=== PATIENT | male | born 1945 | race Caucasian/White ===

== ENCOUNTER → 2016-07-02 | Outpatient (CLI) | payer MEDICARE ==
[~2016-07-02] MED LIST: ADV500INH INH; ALBU17IN INH; ALBU83IN INH; DOCU100C PO; LISI10TA4 PO; MIRA3350 PO; MONT10TA2 PO; NEXI40GR PO; PRAV40TA2 PO; REGL10TA6 PO; SPIR1CAP INH; [UNRECOGNIZED DRUG - CODE] PO
[2016-07-02 10:27] LABS: ALBUMIN 3.6 GM/DL (3.2-5.2); ALBUMIN/GLOBULIN RATIO 1.29 (1.00-1.93); ALKALINE PHOSPHATASE 56 U/L (45-117); ALT/SGPT 19 U/L (12-78); ANION GAP 6 MEQ/L (8-16); AST/SGOT 14 U/L (15-37); BILIRUBIN,TOTAL 0.5 MG/DL (0.2-1.0); BLOOD UREA NITROGEN 10 MG/DL (7-18); CALCIUM LEVEL 8.3 MG/DL (8.8-10.2); CARBON DIOXIDE LEVEL 32 MEQ/L (21-32); CHLORIDE LEVEL 106 MEQ/L (98-107); CHOLESTEROL LEVEL 149 MG/DL (<200); CREATININE FOR GFR 0.92 MG/DL (0.70-1.30); GLOMERULAR FILTRATION RATE > 60.0 (>49); GLUCOSE, FASTING 97 MG/DL (80-110); POTASSIUM SERUM 4.9 MEQ/L (3.5-5.1); SODIUM LEVEL 144 MEQ/L (136-145); TOTAL PROTEIN 6.4 GM/DL (6.4-8.2); TRIGLYCERIDES LEVEL 70 MG/DL (<150)
[2016-07-03 14:13] LABS: PSA TOTAL 1.7 ng/mL (0.0-4.0)
== END ==
LOC: M WUC 08:28
PROVIDERS: ATTEND Nurse Practitioner Family
DX: Z12.5 Encounter for screening for malignant neoplasm of prostate (principal); R73.01 Impaired fasting glucose; E78.4 Other hyperlipidemia

== ENCOUNTER → 2016-07-26 | Outpatient (CLI) | payer MEDICARE ==
--- NOTE | 2016-07-26 15:03 | REP ---
Chest x-ray: Two views. History: COPD with acute exacerbation. Comparison chest x-ray March 16, 2016. Findings: Moderate cardiac enlargement is seen. There is a very large hiatal hernia and there is elevation and eventration of the left hemidiaphragm. There is some linear fibrosis or atelectasis above this in the left base. These findings are all unchanged. Pleural angles are sharp. No new infiltrate is seen. The aorta is a little tortuous. No significant bony abnormality is seen. Impression: Eventration left hemidiaphragm, large hiatal hernia containing bowel loops. Moderate cardiomegaly again noted. No acute infiltrate. Some linear fibrosis versus discoid atelectasis left base. Signed by Michael Galaviz MD 07/26/2016 05:38 P
== END ==
LOC: M SMT 09:41
PROVIDERS: ATTEND Internal Medicine Pulmonary Disease
DX: J44.1 Chronic obstructive pulmonary disease with (acute) exacerbation (principal)

== ENCOUNTER → 2016-10-09 | Outpatient (REF) | payer MEDICARE | LOC: M LAB REF 13:05 | PROVIDERS: ATTEND Internal Medicine Pulmonary Disease | DX: J44.1 Chronic obstructive pulmonary disease with (acute) exacerbation (principal) ==

== ENCOUNTER → 2016-12-14 | Outpatient (CLI) | payer MEDICARE ==
[~2016-12-14] MED LIST changes: +COMBAER6 INH; -DOCU100C PO; +DOCU100C16 PO; +FURO20TA2 PO; +FURO40TA2 PO; +OMEP40CA2 PO
[2016-12-14 17:58] LABS: ANION GAP 6 MEQ/L (8-16); BLOOD UREA NITROGEN 8 MG/DL (7-18); CALCIUM LEVEL 8.4 MG/DL (8.8-10.2); CARBON DIOXIDE LEVEL 34 MEQ/L (21-32); CHLORIDE LEVEL 102 MEQ/L (98-107); CREATININE FOR GFR 0.91 MG/DL (0.70-1.30); GLOMERULAR FILTRATION RATE > 60.0 (>49); GLUCOSE, FASTING 94 MG/DL (80-110); POTASSIUM SERUM 4.3 MEQ/L (3.5-5.1); SODIUM LEVEL 142 MEQ/L (136-145)
== END ==
LOC: M WUC 13:11
PROVIDERS: ATTEND Nurse Practitioner Family
DX: R60.0 Localized edema (principal)

== ENCOUNTER → 2017-01-07 | Outpatient (CLI) | payer MEDICARE ==
[2017-01-07 09:41] LABS: ANION GAP 9 MEQ/L (8-16); BLOOD UREA NITROGEN 12 MG/DL (7-18); CALCIUM LEVEL 8.3 MG/DL (8.8-10.2); CARBON DIOXIDE LEVEL 32 MEQ/L (21-32); CHLORIDE LEVEL 104 MEQ/L (98-107); GLOMERULAR FILTRATION RATE > 60.0 (>49); GLUCOSE, FASTING 107 MG/DL (80-110); MAGNESIUM LEVEL 2.2 MG/DL (1.8-2.4); POTASSIUM SERUM 4.3 MEQ/L (3.5-5.1); SODIUM LEVEL 145 MEQ/L (136-145)
== END ==
LOC: M WUC 08:12
PROVIDERS: ATTEND Nurse Practitioner Family
DX: I10 Essential (primary) hypertension (principal)

== ENCOUNTER 2017-02-06 14:38 | Observation (INO) | payer MEDICARE ==
[~2017-02-06] VITALS: Ht 170.2 cm; Wt 106.8 kg
[~2017-02-06 14:38] MED LIST changes: -COMBAER6 INH; -FURO20TA2 PO; -FURO40TA2 PO; -OMEP40CA2 PO
[2017-02-06] MEDS ORDERED: PERCOCET 5MG/325MG TAB PO PRN (15:15)
[2017-02-06] MEDS ORDERED: ACETAMINOPHEN TAB 650MG DOSE (2X325MG) PO PRN (15:15)
[2017-02-06] MEDS ORDERED: ONDANSETRON 4 MG TAB (S0181) PO PRN (15:15)
[2017-02-06] MEDS ORDERED: ONDANSETRON 4MG/2ML VIAL (J2405) IV PRN (15:15)
[2017-02-06 15:38] LABS: BASO # 0.1 10^3/uL (0.0-0.2); EOS # 0.2 10^3/uL (0.0-0.50); EOS % 3.3 % (0.0-3.0); IMMATURE GRANULOCYTE % 0.3 % (0-0); LYMPH # 1.5 10^3/uL (1.5-4.5); LYMPH % 20.3 % (24.0-44.0); MEAN CORPUSCULAR HEMOGLOBIN 32.4 pg (27.0-33.0); MEAN CORPUSCULAR HGB CONC 33.5 g/dl (32.0-36.5); MEAN CORPUSCULAR VOLUME 96.5 fl (80.0-96.0); MONO # 0.6 10^3/uL (0.0-0.8); MONO % 8.1 % (0.0-5.0); NEUTROPHILS # 4.9 10^3/uL (1.8-7.7); PLATELET COUNT, AUTOMATED 213 10^3/uL (150-450); RED CELL DISTRIBUTION WIDTH 12.3 % (11.5-14.5); WHITE BLOOD COUNT 7.3 10^3/uL (4.0-10.0)
[2017-02-06 15:41] LABS: ADD MORPHOLOGY? NO
[2017-02-06 15:45] VITALS: BP 120/59
[2017-02-06 16:12] LABS: ALBUMIN 3.7 GM/DL (3.2-5.2); ALBUMIN/GLOBULIN RATIO 1.28 (1.00-1.93); ALKALINE PHOSPHATASE 55 U/L (45-117); ALT/SGPT 19 U/L (12-78); ANION GAP 2 MEQ/L (8-16); AST/SGOT 16 U/L (15-37); BILIRUBIN,TOTAL 0.5 MG/DL (0.2-1.0); BLOOD UREA NITROGEN 12 MG/DL (7-18); CALCIUM LEVEL 8.7 MG/DL (8.8-10.2); CARBON DIOXIDE LEVEL 36 MEQ/L (21-32); CHLORIDE LEVEL 102 MEQ/L (98-107); CREATININE FOR GFR 1.05 MG/DL (0.70-1.30); GLOMERULAR FILTRATION RATE > 60.0 (>49); GLUCOSE, FASTING 105 MG/DL (80-110); MAGNESIUM LEVEL 1.9 MG/DL (1.8-2.4); POTASSIUM SERUM 4.5 MEQ/L (3.5-5.1); SODIUM LEVEL 140 MEQ/L (136-145); TOTAL PROTEIN 6.6 GM/DL (6.4-8.2)
--- NOTE | 2017-02-06 16:24 | HPEPDOC ---
[facility] Medical History & Physical Date of Admission Feb 06, 2017 History and Physical HISTORY AND PHYSICAL Date of admission: 02/06/2017 PCP: Mukul Patrick Chief complaint: Fluid buildup HPI: 71-year-old male with COPD, hyperlipidemia, hypertension, Toscano's esophagus, chronic diastolic CHF, AMOL on CPAP who was directly admitted from Dr. Espinal office. The patient states that he has been noticing he has had fluid buildup for the past month. He reports that he went to his PCP last week for this specific problem, but they did not make any changes to his medication. He reports that he weighs himself at home and he has seen approximately a 4 pound increase in the last 1-2 weeks. He also reports that in the last week he has had to start sleeping on a couple pillows. In addition to swelling in his legs he reports some shortness of breath that seems to get worse when he is walking or active. He denies any chest pain, but does report that he has started to experience tightness in his chest today it seems to get worse with activity. He states that he had been referred by Dr. Espinal to see Dr. Mario for the first time, but he was not able to get an appointment until February 26. Past medical history: COPD, hyperlipidemia, hypertension, Toscano's esophagus, chronic diastolic CHF, AMOL on CPAP Past surgical history: Hiatal hernia repair, as well as another surgery that he states was "done on his privates, and if not done he would've " but he is not further able to articulate what this was and reports that it was not related to any sort of prostate cancer Family history: Coronary artery disease, tremors Social history: The patient currently lives with his . He reports that he used to smoke approximately 1-1/2 packs per week but is now down to half a pack per week. He quit drinking all alcohol 30 years ago. Allergies: Aspirin, banana, fish Review of systems: General: Negative for fever and chills Eyes: Negative for vision changes and ocular discharge ENT: Negative For sore throat and nose bleed Cardiovascular: Negative for chest pain and palpitations, positive for orthopnea as well as some chest tightness that began today Respiratory: Positive for cough and shortness of breath GI: Negative for nausea, vomiting, diarrhea Musculoskeletal: Negative for neck and back pain Skin: Negative for rash Neuro: Positive for occasional headache but none currently, negative for dizziness, numbness, tingling Psych: Negative for depression and suicidal ideation Endocrine: Negative for polydipsia, positive for polyuria : Negative for dysuria Heme: Negative for bleeding Home meds: See below Physical exam: Vital signs: Vital Signs Date Time Temp Pulse Resp B/P (MAP) Pulse Ox O2 Delivery O2 Flow Rate FiO2 02/06/17 15:45 97.7 86 18 120/59 (79) 93 Gen.: awake, alert, no acute distress Eyes: Extraocular movements intact, normal sclera ENT: Moist mucous membranes Cardiovascular: RRR, no murmurs rubs or gallops Lungs: clear to auscultation at the bilateral apices, coarse with mild crackles at the bilateral bases, no wheeze Abdomen: Soft, NT/ND, normal BS Musculoskeletal: normal range of motion Extremities: 1+ peripheral edema Neuro: alert and oriented 3, normal speech, no focal deficits Psych: Normal mood with congruent affect Labs and radiology: CBC, CMP, magnesium are unremarkable BNP is elevated at 241 Assessment and plan: 71-year-old male with COPD, hyperlipidemia, hypertension, Toscano's esophagus, chronic diastolic CHF, AMOL on CPAP who was directly admitted from Dr. Espinal office with acute on chronic diastolic CHF exacerbation. 1. Acute on chronic diastolic CHF: We will hold the patient's home oral Lasix and start him on IV Lasix twice a day. We will follow daily weights as well as ins and outs. We will obtain an echocardiogram, as well as monitor him on telemetry and check an EKG and trend troponins. 2. Shortness of breath: I suspect this is secondary to his CHF exacerbation. I do not hear any distinct wheeze that would indicate this is a COPD exacerbation. However, we will check a chest x-ray to rule out other etiologies. 3. COPD: Continue home nebulizers, Singulair, Advair, Spiriva.. 4. Hypertension: Continue home AL inhibitor. 5. Toscano's esophagus: Continue home PPI. 6. AMOL on CPAP: The patient has brought his CPAP machine in, and we will urge him to use his home CPAP. According to Dr. Espinal, he uses 9 cm with 2 L bled in. 7. Hyperlipidemia: Continue home statin. DVT prophylaxis: Lovenox Dispo: place in observation status on the service of Dr. Crystal CODE STATUS: Full code Laboratory Data Labs 24H Laboratory Tests 2 02/06/17 15:29: White Blood Count 7.3, Red Blood Count 4.79, Hemoglobin 15.5, Hematocrit 46.2, Mean Corpuscular Volume 96.5H, Mean Corpuscular Hemoglobin 32.4, Mean Corpuscular Hemoglobin Concent 33.5, Red Cell Distribution Width 12.3, Platelet Count 213, Neutrophils (%) (Auto) 67.0H, Lymphocytes (%) (Auto) 20.3L, Monocytes (%) (Auto) 8.1H, Eosinophils (%) (Auto) 3.3H, Basophils (%) (Auto) 1.0 , Neutrophils # (Auto) 4.9, Lymphocytes # (Auto) 1.5, Monocytes # (Auto) 0.6, Eosinophils # (Auto) 0.2, Basophils # (Auto) 0.1, Immature Granulocyte # (Auto) 0.0, Nucleated Red Blood Cells % (auto) 0.0, Anion Gap 2L, Glomerular Filtration Rate > 60.0, Blood Urea Nitrogen 12, Creatinine 1.05, Sodium Level 140, Potassium Level 4.5, Chloride Level 102, Carbon Dioxide Level 36H, Calcium Level 8.7L, Aspartate Amino Transf (AST/SGOT) 16, Alanine Aminotransferase (ALT/ SGPT) 19, Total Creatine Kinase 172, Alkaline Phosphatase 55, Total Bilirubin 0.5, Total Protein 6.6, Albumin 3.7, Magnesium Level 1.9, Creatine Kinase MB 2.6 , Creatine Kinase MB Relative Index 1.51, Troponin I < 0.02, XX-[id number]-Type Natriuretic Peptide 241H, Albumin/Globulin Ratio 1.28 CBC/BMP Laboratory Tests 02/06/17 15:29 Red Blood Count 4.79, Mean Corpuscular Volume 96.5 H, Mean Corpuscular Hemoglobin 32.4, Mean Corpuscular Hemoglobin Concent 33.5, Red Cell Distribution Width 12.3, Neutrophils (%) (Auto) 67.0 H, Lymphocytes (%) (Auto) 20.3 L, Monocytes (%) (Auto) 8.1 H, Eosinophils (%) (Auto) 3.3 H, Basophils (%) (Auto) 1.0, Neutrophils # (Auto) 4.9, Lymphocytes # (Auto) 1.5, Monocytes # ( Auto) 0.6, Eosinophils # (Auto) 0.2, Basophils # (Auto) 0.1, Calcium Level 8.7 L , Aspartate Amino Transf (AST/SGOT) 16, Alanine Aminotransferase (ALT/SGPT) 19, Total Creatine Kinase 172, Alkaline Phosphatase 55, Total Bilirubin 0.5, Total Protein 6.6, Albumin 3.7 Home Medications Scheduled Docusate Sodium (Docusate Sodium) 100 Mg Cap, 100 MG PO DAILY Furosemide (Furosemide) 20 Mg Tab, 20 MG PO DAILY Lisinopril (Lisinopril) 10 Mg Tab, 10 MG PO DAILY Montelukast Sodium (Montelukast Sodium) 10 Mg Tab, 10 MG PO QPM Omeprazole (Omeprazole) 40 Mg Cap, 40 MG PO BID Polyethylene Glycol (Miralax) 1 Pow Pow, 17 GM PO BID Pravastatin Sod (Pravastatin Sodium) 40 Mg Tab, 40 MG PO DAILY Salmeterol/Fluticasone (Advair Diskus 500-50 Mcg/Dose) 28 Puff/Inhaler Aerp, 1 PUFF INH BID Tiotropium [place] Monohydrate (Spiriva Handihaler) 18 Mcg Cap, 1 INHALATION INH QPM Scheduled PRN Albuterol Sulfate (Ventolin Hfa) 200 Puff/8 Gm Aers, 2 PUFF INH QID PRN for SOB/ WHEEZING Albuterol Sulfate (Albuterol Sulfate) 2.5 Mg/3 Ml Nebu, 2.5 MG INH PRN PRN for WHEEZING Albuterol/Ipratropium (Combivent Respimat 20-100 Mcg/Act) 1 Aer Aer, 1 PUFF INH QID PRN for SHORTNESS OF BREATH Allergies Coded Allergies: Aspirin (Unverified Allergy, Unknown, rash, 02/06/17) Banana (Unverified Allergy, Unknown, 02/06/17) FISH (Unverified Allergy, Unknown, 02/06/17) JAEL HERNÁNDEZ Feb 06, 2017 16:24
[2017-02-06] MEDS ORDERED: OMEP40CA2 PO (16:47)
[2017-02-06] MEDS ORDERED: FURO20TA2 PO (16:47)
[2017-02-06] MEDS ORDERED: COMBAER6 INH (16:47)
[2017-02-06] MEDS: FUROSEMIDE 40 MG/4 ML VIAL (J1940) IV SCH (16:55)
[2017-02-06] MEDS ORDERED: MIRALAX *UNIT DOSE* 17GM PACKET PO PRN (17:15)
[2017-02-06] MEDS: ALBUTEROL SULFATE 2.5 MG/0.5 ML INH NEB SOLN INH PRN (17:38)
[2017-02-06 20:00] VITALS: BP 107/56
[2017-02-06] MEDS: IPRATROPIUM 0.5MG/ALBUTEROL 2.5MG INH SOL UD 3ML (DUONEB)(J7620) INH SCH (20:00)
[2017-02-06] MEDS: ADVAIR HFA 230/21MCG INHALER INH SCH (21:04)
[2017-02-06] MEDS: OMEPRAZOLE 20 MG CAP PO SCH (21:32)
[2017-02-06] MEDS: MONTELUKAST 10 MG TAB PO SCH (21:32)
--- NOTE | 2017-02-06 22:14 | ECGEPIP ---
Stationary ECG Study 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
[2017-02-06] MEDS: TIOTROPIUM INHALER/CAPSULE (SPIRIVA) INH SCH (23:55)
[2017-02-07] VITALS: BP 125/55
[2017-02-07 04:00] VITALS: BP 127/70
[2017-02-07] MEDS: ALBUTEROL SULFATE 2.5 MG/0.5 ML INH NEB SOLN INH PRN (04:19)
[2017-02-07 06:13] LABS: BASO # 0.1 10^3/uL (0.0-0.2); EOS # 0.3 10^3/uL (0.0-0.50); EOS % 3.9 % (0.0-3.0); IMMATURE GRANULOCYTE % 0.4 % (0-0); LYMPH # 1.2 10^3/uL (1.5-4.5); LYMPH % 17.6 % (24.0-44.0); MEAN CORPUSCULAR HEMOGLOBIN 32.6 pg (27.0-33.0); MEAN CORPUSCULAR HGB CONC 33.3 g/dl (32.0-36.5); MONO # 0.6 10^3/uL (0.0-0.8); MONO % 9.3 % (0.0-5.0); NEUTROPHILS # 4.6 10^3/uL (1.8-7.7); NEUTROPHILS % 67.8 % (36.0-66.0); PLATELET COUNT, AUTOMATED 204 10^3/uL (150-450); RED CELL DISTRIBUTION WIDTH 12.2 % (11.5-14.5); WHITE BLOOD COUNT 6.8 10^3/uL (4.0-10.0)
[2017-02-07 06:41] LABS: ANION GAP 4 MEQ/L (8-16); BLOOD UREA NITROGEN 13 MG/DL (7-18); CALCIUM LEVEL 8.5 MG/DL (8.8-10.2); CARBON DIOXIDE LEVEL 36 MEQ/L (21-32); CHLORIDE LEVEL 101 MEQ/L (98-107); CREATININE FOR GFR 1.09 MG/DL (0.70-1.30); GLOMERULAR FILTRATION RATE > 60.0 (>49); GLUCOSE, FASTING 107 MG/DL (80-110); MAGNESIUM LEVEL 2.1 MG/DL (1.8-2.4); POTASSIUM SERUM 3.9 MEQ/L (3.5-5.1); SODIUM LEVEL 141 MEQ/L (136-145)
[2017-02-07] MEDS: ADVAIR HFA 230/21MCG INHALER INH SCH ×2 (07:57→21:16)
[2017-02-07] MEDS: TIOTROPIUM INHALER/CAPSULE (SPIRIVA) INH SCH (07:58)
[2017-02-07] MEDS: IPRATROPIUM 0.5MG/ALBUTEROL 2.5MG INH SOL UD 3ML (DUONEB)(J7620) INH SCH ×4 (07:58→21:31)
[2017-02-07 08:00] VITALS: BP 112/55
--- NOTE | 2017-02-07 08:09 | REP ---
PA and lateral chest: Comparisons 07/26/2016. There is marked elevation of the left hemidiaphragm, two above the level of the left hilus, unchanged, likely eventration. The left upper lobe is clear. Right lung is clear. Cardiac size cannot be assessed as the left cardiac margin is obscured by the elevated left hemidiaphragm. Impression: Eventration of the left hemidiaphragm, unchanged. No acute cardiopulmonary findings. Signed by Jase Mcwilliams MD 02/07/2017 08:01 A
[2017-02-07] MEDS: FUROSEMIDE 40 MG/4 ML VIAL (J1940) IV SCH ×2 (09:26→17:33)
[2017-02-07] MEDS: ENOXAPARIN 40 MG/0.4 ML SYRINGE (J1650) SC SCH (09:27)
[2017-02-07] MEDS: LISINOPRIL 10 MG TAB PO SCH (09:27)
[2017-02-07] MEDS: OMEPRAZOLE 20 MG CAP PO SCH ×2 (09:28→21:07)
[2017-02-07] MEDS: DOCUSATE SODIUM 100 MG CAP PO SCH (09:28)
[2017-02-07] MEDS: PRAVASTATIN 20 MG TAB PO SCH (09:28)
--- NOTE | 2017-02-07 11:37 | IPN ---
DATE: 02/07/2017 Mr. Turcios is feeling much better today, much less short of breath. He thinks that his legs have gotten smaller. No chest pain. Tolerating a diet. Temperature is 97.6, pulse 88, respiratory rate 20, blood pressure 112/55, 96% on 2 liters. There is some ectopy. Negative fluid status of -540. Weight is 107.1 kg, Body Mass Index (BMI) is 37. He is awake, appropriately interactive. Mucous membranes are moist. Neck is supple and thick. Breathing is symmetrical. I:E ratio is 1:3. No wheezes, rales or rhonchi. No costovertebral angle tenderness. No sacral edema. Heart has a regular rate and rhythm. Distant sounding. Normal S1, S2. Radial pulses 2+. Capillary refill is less than 2 seconds. He has trace to 1+ bilateral lower extremity edema. Some skin wrinkling noted. Sodium is 141, BUN 13, creatinine 1.09, CK and troponin negative times three. Hemoglobin 16.1, platelets of 204. ASSESSMENT: Is as follows: This is a 71-year-old with suspected congestive heart failure (CHF) exacerbation, most likely related to diastolic dysfunction or perhaps right sided heart failure. PLAN: Is as follows: 1. The patient has acute on chronic diastolic congestive heart failure (CHF). Echocardiogram is pending. We will continue with IV diuretic today. 2. The patient has a history of chronic obstructive pulmonary disease (COPD). Continue home medications. 3. The patient has hypertension. The patient is continued on AL inhibitor in the setting of diuresis, which will be continued. 4. The patient has obstructive sleep apnea on CPAP. 5. The patient has hyperlipidemia. Pending results of the echocardiogram and further diuresis, maybe able to be discharge as early as tomorrow.
[2017-02-07 12:00] VITALS: BP 116/65
[2017-02-07 16:00] VITALS: BP 114/66
[2017-02-07 20:00] VITALS: BP 125/62
[2017-02-07] MEDS: MONTELUKAST 10 MG TAB PO SCH (21:07)
[2017-02-08] VITALS: BP 107/71
[2017-02-08 04:00] VITALS: BP 138/77
[2017-02-08] MEDS: ALBUTEROL SULFATE 2.5 MG/0.5 ML INH NEB SOLN INH PRN (04:39)
[2017-02-08 05:52] LABS: BASO # 0.1 10^3/uL (0.0-0.2); EOS # 0.2 10^3/uL (0.0-0.50); EOS % 3.5 % (0.0-3.0); IMMATURE GRANULOCYTE % 0.4 % (0-0); LYMPH # 1.3 10^3/uL (1.5-4.5); LYMPH % 18.4 % (24.0-44.0); MEAN CORPUSCULAR HEMOGLOBIN 32.4 pg (27.0-33.0); MEAN CORPUSCULAR HGB CONC 33.5 g/dl (32.0-36.5); MEAN CORPUSCULAR VOLUME 96.6 fl (80.0-96.0); MONO # 0.6 10^3/uL (0.0-0.8); MONO % 9.1 % (0.0-5.0); NEUTROPHILS # 4.6 10^3/uL (1.8-7.7); NEUTROPHILS % 67.6 % (36.0-66.0); PLATELET COUNT, AUTOMATED 200 10^3/uL (150-450); RED CELL DISTRIBUTION WIDTH 12.2 % (11.5-14.5); WHITE BLOOD COUNT 6.8 10^3/uL (4.0-10.0)
[2017-02-08 06:26] LABS: ANION GAP 6 MEQ/L (8-16); BLOOD UREA NITROGEN 19 MG/DL (7-18); CALCIUM LEVEL 8.7 MG/DL (8.8-10.2); CARBON DIOXIDE LEVEL 33 MEQ/L (21-32); CHLORIDE LEVEL 98 MEQ/L (98-107); CREATININE FOR GFR 1.07 MG/DL (0.70-1.30); GLOMERULAR FILTRATION RATE > 60.0 (>49); GLUCOSE, FASTING 99 MG/DL (80-110); SODIUM LEVEL 137 MEQ/L (136-145)
[2017-02-08] MEDS: IPRATROPIUM 0.5MG/ALBUTEROL 2.5MG INH SOL UD 3ML (DUONEB)(J7620) INH SCH ×2 (08:00→11:15)
[2017-02-08] MEDS: TIOTROPIUM INHALER/CAPSULE (SPIRIVA) INH SCH (08:00)
[2017-02-08] MEDS: ADVAIR HFA 230/21MCG INHALER INH SCH (08:00)
[2017-02-08 08:16] VITALS: BP 123/61
[2017-02-08] MEDS ORDERED: FURO40TA2 PO ×2 (08:26→12:27)
[2017-02-08] MEDS: ENOXAPARIN 40 MG/0.4 ML SYRINGE (J1650) SC SCH (08:43)
[2017-02-08] MEDS: DOCUSATE SODIUM 100 MG CAP PO SCH (08:43)
[2017-02-08 08:44] VITALS: BP 123/61
[2017-02-08] MEDS: PRAVASTATIN 20 MG TAB PO SCH (08:44)
[2017-02-08] MEDS: FUROSEMIDE 40 MG/4 ML VIAL (J1940) IV SCH (08:44)
[2017-02-08] MEDS: LISINOPRIL 10 MG TAB PO SCH (08:44)
[2017-02-08] MEDS: OMEPRAZOLE 20 MG CAP PO SCH (08:44)
[2017-02-09] MEDS ORDERED: INFLUENZA VIRUS VACCINE HIGH DOSE 0.5 ML SYRINGE (90662) IM ONE (09:00)
[2017-02-09] MEDS ORDERED: PREVNAR 13 VACCINE SYRINGE (CPT CODE:90670) IM ONE (09:00)
--- NOTE | 2017-02-10 15:48 | DSES ---
DATE OF ADMISSION: 02/06/2017 DATE OF DISCHARGE: 02/08/2017 SPECIALISTS INVOLVED IN CARE: None. COMPLICATIONS: None. PROCEDURES PERFORMED DURING STAY: NONE. DISCHARGE DIAGNOSES: 1. Acute on chronic diastolic congestive heart failure. 2. Chronic obstructive pulmonary disease (COPD). 3. Hypertension. 4. Obstructive sleep apnea on continuous positive airway pressure (CPAP). 5. Hyperlipidemia. 6. Toscano's esophagus. SUMMARY OF PRESENTATION: A 71-year-old who was sent to the hospital directly from Dr. Espinal' office. He had been noticing increasing weight and edema over the last month. He has developed orthopnea and edema, was admitted to the hospitalist service for diuresis. Was diuresed approximately six pounds, improved markedly, was able to ambulate without difficulty. No complains of pain, chest pain, shortness of breath, and was felt ready to go home. Unfortunately, we were unable to obtain an echocardiogram during his stay due to unavailability of resources. OBJECTIVE: VITAL SIGNS: On the day of discharge, temperature 97.5, pulse 79, respiratory rate 20, blood pressure 123/61, 97% on room air. GENERAL: He is awake, appropriately interact, pleasantly conversant. LUNGS: Breathing is symmetrical. I:E ratio is 1:4. No wheezes, rales, or rhonchi. HEART: Distant sounding normal S1, S2. ABDOMEN: Soft, doughy, nontender. LABORATORY DATA: White cell count 6.8, hemoglobin 16, BUN 19, creatinine 1.07. DISCHARGE INSTRUCTIONS: 1. Followup with Mukul Patrick on 02/13 at 10:30. 2. Activity as tolerated. 3. Two-gram sodium 1800 mL per 24-hour fluid restriction. 4. Continue with: - Lasix 40 mg by mouth daily - albuterol two puffs four times a day and as needed - Combivent one puff four times a day - Colace 100 mg by mouth daily - lisinopril 10 mg by mouth daily - Singulair 10 mg by mouth every evening - omeprazole 40 mg by mouth twice daily - MiraLAX 17 grams by mouth twice daily - pravastatin 40 mg by mouth daily - Advair 500/50 inhaled twice daily - Spiriva inhaled every evening daily 5. Discontinue previous dose of Lasix 20.
== END 2017-02-08 11:24 | disposition home or self-care (01) ==
LOC: M PCU 15:19
PROVIDERS: ADMIT Hospitalist; ATTEND Internal Medicine
DX: I50.33 Acute on chronic diastolic (congestive) heart failure (principal); J44.9 Chronic obstructive pulmonary disease, unspecified; I11.0 Hypertensive heart disease with heart failure; G47.33 Obstructive sleep apnea (adult) (pediatric); E78.4 Other hyperlipidemia; K22.70 Barrett's esophagus without dysplasia; R06.02 Shortness of breath; Z79.899 Other long term (current) drug therapy
CPT/HCPCS: 36415; 71020; 80048; 80053; 82550; 82553; 83735; 83880; 84484; 85025; 93005; 94640; 96372; 96374; 96376; G0378; J1650; J1940

== ENCOUNTER → 2017-02-21 | Outpatient (CLI) | payer MEDICARE ==
[~2017-02-21] MED LIST changes: +COMBAER6 INH; +FURO20TA2 PO; +FURO40TA2 PO; +OMEP40CA2 PO
[2017-02-21 14:23] LABS: ANION GAP 4 MEQ/L (8-16); BLOOD UREA NITROGEN 12 MG/DL (7-18); CALCIUM LEVEL 8.7 MG/DL (8.8-10.2); CARBON DIOXIDE LEVEL 34 MEQ/L (21-32); CHLORIDE LEVEL 102 MEQ/L (98-107); CREATININE FOR GFR 0.93 MG/DL (0.70-1.30); GLOMERULAR FILTRATION RATE > 60.0 (>49); GLUCOSE, FASTING 103 MG/DL (80-110); POTASSIUM SERUM 4.3 MEQ/L (3.5-5.1); SODIUM LEVEL 140 MEQ/L (136-145)
== END ==
LOC: M WUC 08:54
PROVIDERS: ATTEND Nurse Practitioner Family
DX: I10 Essential (primary) hypertension (principal)

== ENCOUNTER → 2017-03-29 | Outpatient (CLI) | payer MEDICARE ==
[2017-03-29 13:32] LABS: BASO # 0.1 10^3/uL (0.0-0.2); BASO % 1.2 % (0.0-1.0); EOS # 0.2 10^3/uL (0.0-0.50); EOS % 4.6 % (0.0-3.0); IMMATURE GRANULOCYTE % 0.4 % (0-0); LYMPH # 1.3 10^3/uL (1.5-4.5); LYMPH % 26.2 % (24.0-44.0); MEAN CORPUSCULAR HEMOGLOBIN 32.4 pg (27.0-33.0); MEAN CORPUSCULAR HGB CONC 32.9 g/dl (32.0-36.5); MEAN CORPUSCULAR VOLUME 98.4 fl (80.0-96.0); MONO # 0.5 10^3/uL (0.0-0.8); MONO % 10.1 % (0.0-5.0); NEUTROPHILS # 2.9 10^3/uL (1.8-7.7); NEUTROPHILS % 57.5 % (36.0-66.0); PLATELET COUNT, AUTOMATED 200 10^3/uL (150-450); RED CELL DISTRIBUTION WIDTH 12.4 % (11.5-14.5)
[2017-03-29 13:59] LABS: ALBUMIN 3.6 GM/DL (3.2-5.2); ALBUMIN/GLOBULIN RATIO 1.38 (1.00-1.93); ALKALINE PHOSPHATASE 59 U/L (45-117); ALT/SGPT 15 U/L (12-78); ANION GAP 6 MEQ/L (8-16); AST/SGOT 10 U/L (7-37); BILIRUBIN,TOTAL 0.5 MG/DL (0.2-1.0); BLOOD UREA NITROGEN 9 MG/DL (7-18); CALCIUM LEVEL 8.7 MG/DL (8.8-10.2); CARBON DIOXIDE LEVEL 32 MEQ/L (21-32); CHLORIDE LEVEL 105 MEQ/L (98-107); CHOLESTEROL LEVEL 153 MG/DL (<200); CREATININE FOR GFR 0.98 MG/DL (0.70-1.30); GLOMERULAR FILTRATION RATE > 60.0 (>42); GLUCOSE, FASTING 95 MG/DL (83-110); POTASSIUM SERUM 4.5 MEQ/L (3.5-5.1); SODIUM LEVEL 143 MEQ/L (136-145); TOTAL PROTEIN 6.2 GM/DL (6.4-8.2); TRIGLYCERIDES LEVEL 87 MG/DL (<150)
== END ==
LOC: M WUC 09:24
PROVIDERS: ATTEND Nurse Practitioner Family
DX: K21.9 Gastro-esophageal reflux disease without esophagitis (principal); R73.01 Impaired fasting glucose; E78.4 Other hyperlipidemia; I10 Essential (primary) hypertension

== ENCOUNTER → 2017-09-03 | Outpatient (CLI) | payer MEDICARE ==
[2017-09-03 17:21] LABS: BASO # 0.1 10^3/uL (0.0-0.2); BASO % 0.7 % (0.0-1.0); EOS # 0.1 10^3/uL (0.0-0.50); EOS % 1.6 % (0.0-3.0); HEMATOCRIT 46.1 % (42.0-52.0); HEMOGLOBIN 15.2 g/dl (13.5-17.5); IMMATURE GRANULOCYTE % 0.3 % (0-3.0); LYMPH # 1.2 10^3/uL (1.5-4.5); LYMPH % 17.6 % (24.0-44.0); MEAN CORPUSCULAR HEMOGLOBIN 32.5 pg (27.0-33.0); MEAN CORPUSCULAR VOLUME 98.5 fl (80.0-96.0); MONO # 0.6 10^3/uL (0.0-0.8); MONO % 8.5 % (0.0-5.0); NEUTROPHILS # 4.8 10^3/uL (1.8-7.7); NEUTROPHILS % 71.3 % (36.0-66.0); PLATELET COUNT, AUTOMATED 208 10^3/uL (150-450); RED BLOOD COUNT 4.68 10^6/uL (4.30-6.10); RED CELL DISTRIBUTION WIDTH 12.9 % (11.5-14.5); WHITE BLOOD COUNT 6.7 10^3/uL (4.0-10.0)
[2017-09-03 18:16] LABS: ANION GAP 6 MEQ/L (8-16); BLOOD UREA NITROGEN 9 MG/DL (7-18); CALCIUM LEVEL 8.3 MG/DL (8.8-10.2); CARBON DIOXIDE LEVEL 30 MEQ/L (21-32); CHLORIDE LEVEL 105 MEQ/L (98-107); CREATININE FOR GFR 0.92 MG/DL (0.70-1.30); GLOMERULAR FILTRATION RATE > 60.0 (>42); GLUCOSE, FASTING 87 MG/DL (70-100); POTASSIUM SERUM 4.1 MEQ/L (3.5-5.1); SODIUM LEVEL 141 MEQ/L (136-145)
== END ==
LOC: M WUC 12:13
DX: R19.7 Diarrhea, unspecified (principal)
CPT/HCPCS: 80048

== ENCOUNTER 2017-09-16 10:23 | Emergency (ER) | payer MEDICARE ==
[2017-09-16 13:09] LABS: BASO % 0.3 % (0.0-1.0); EOS # 0.1 10^3/uL (0.0-0.50); EOS % 0.9 % (0.0-3.0); HEMATOCRIT 45.2 % (42.0-52.0); HEMOGLOBIN 15.3 g/dl (13.5-17.5); IMMATURE GRANULOCYTE % 0.4 % (0-3.0); LYMPH # 0.9 10^3/uL (1.5-4.5); LYMPH % 8.6 % (24.0-44.0); MEAN CORPUSCULAR HGB CONC 33.8 g/dl (32.0-36.5); MEAN CORPUSCULAR VOLUME 97.6 fl (80.0-96.0); MONO # 0.8 10^3/uL (0.0-0.8); NEUTROPHILS # 8.3 10^3/uL (1.8-7.7); NEUTROPHILS % 81.8 % (36.0-66.0); PLATELET COUNT, AUTOMATED 241 10^3/uL (150-450); RED BLOOD COUNT 4.63 10^6/uL (4.30-6.10); RED CELL DISTRIBUTION WIDTH 12.8 % (11.5-14.5); WHITE BLOOD COUNT 10.2 10^3/uL (4.0-10.0)
[2017-09-16 13:19] LABS: INR 1.06; PROTHROMBIN TIME 13.9 SECONDS (12.4-14.5)
[2017-09-16 13:20] LABS: PARTIAL THROMBOPLASTIN TIME 35.1 SECONDS (26.8-37.9)
[2017-09-16 13:27] LABS: KETONE, URINE AUTO RFX NEGATIVE (NEGATIVE); LEUKOCYTE ESTERASE UR AUTO RFX NEGATIVE (NEGATIVE); MUCUS, URINE RFX SMALL (NEGATIVE); NITRITE, URINE AUTO RFX NEGATIVE (NEGATIVE); RBC, URINE AUTO RFX 2 /HPF (0-3); SPECIFIC GRAVITY UR AUTO RFX 1.015 (1.002-1.035); SQUAM EPITHELIAL CELL UR AURFX 0 /HPF (0-6); WBC, URINE AUTO RFX 3 /HPF (0-3)
[2017-09-16] MEDS ORDERED: ISOVUE-370 76% 100ML VIAL (Q9967) As Ordered (13:34)
[2017-09-16 13:39] LABS: ALBUMIN 3.4 GM/DL (3.2-5.2); ALBUMIN/GLOBULIN RATIO 0.89 (1.00-1.93); ALKALINE PHOSPHATASE 50 U/L (45-117); ALT/SGPT 12 U/L (12-78); AMYLASE 28 U/L (25-115); ANION GAP 5 MEQ/L (8-16); AST/SGOT 11 U/L (7-37); BILIRUBIN,DIRECT 0.1 MG/DL (0.0-0.2); BILIRUBIN,TOTAL 0.4 MG/DL (0.2-1.0); BLOOD UREA NITROGEN 9 MG/DL (7-18); CALCIUM LEVEL 8.6 MG/DL (8.8-10.2); CARBON DIOXIDE LEVEL 31 MEQ/L (21-32); CHLORIDE LEVEL 107 MEQ/L (98-107); GLOMERULAR FILTRATION RATE > 60.0 (>42); GLUCOSE, FASTING 96 MG/DL (70-100); LIPASE 66 U/L (73-393); POTASSIUM SERUM 4.1 MEQ/L (3.5-5.1); SODIUM LEVEL 143 MEQ/L (136-145); TOTAL PROTEIN 7.2 GM/DL (6.4-8.2)
[2017-09-16 13:42] LABS: CK-MB VALUE MASS 1.9 NG/ML (<3.6); CPK CREATINE PHOSPHOKINASE 108 U/L (39-308); MB/CK RELATIVE INDEX 1.75 (< OR =4); TROPONIN I < 0.02 NG/ML (< 0.10)
[2017-09-16 15:41] LABS: MAGNESIUM LEVEL 2.2 MG/DL (1.8-2.4); THYROXINE (T4) 8.9 UG/DL (4.5-12.0)
== END 2017-09-16 15:48 | disposition home or self-care (01) ==
LOC: M ED 10:23
DX: A04.72 Enterocolitis due to Clostridium difficile, not specified as recurrent (principal); K57.90 Diverticulosis of intestine, part unspecified, without perforation or abscess without bleeding; K43.9 Ventral hernia without obstruction or gangrene; I10 Essential (primary) hypertension; I48.91 Unspecified atrial fibrillation; I50.9 Heart failure, unspecified; E78.5 Hyperlipidemia, unspecified; K21.9 Gastro-esophageal reflux disease without esophagitis; J44.9 Chronic obstructive pulmonary disease, unspecified; G47.30 Sleep apnea, unspecified; K22.70 Barrett's esophagus without dysplasia; H91.90 Unspecified hearing loss, unspecified ear; F17.200 Nicotine dependence, unspecified, uncomplicated; Z79.899 Other long term (current) drug therapy; Z88.6 Allergy status to analgesic agent; Z91.013 Allergy to seafood; Z91.018 Allergy to other foods
CPT/HCPCS: Q9967

== ENCOUNTER → 2018-01-28 | Outpatient (CLI) | payer OTHER, MEDICARE | LOC: M PLARAD 13:39 | DX: R91.8 Other nonspecific abnormal finding of lung field (principal) | CPT/HCPCS: 78815 ==

== ENCOUNTER → 2018-02-22 | Outpatient (CLI) | payer OTHER ==
[2018-02-22 20:11] LABS: BASO # 0.1 10^3/uL (0.0-0.2); EOS # 0.2 10^3/uL (0.0-0.50); EOS % 2.8 % (0.0-3.0); HEMATOCRIT 46.3 % (42.0-52.0); HEMOGLOBIN 15.1 g/dl (13.5-17.5); IMMATURE GRANULOCYTE % 0.3 % (0-3.0); LYMPH # 1.1 10^3/uL (1.5-4.5); LYMPH % 18.5 % (24.0-44.0); MEAN CORPUSCULAR HEMOGLOBIN 32.9 pg (27.0-33.0); MEAN CORPUSCULAR HGB CONC 32.6 g/dl (32.0-36.5); MEAN CORPUSCULAR VOLUME 100.9 fl (80.0-96.0); MONO # 0.6 10^3/uL (0.0-0.8); MONO % 9.4 % (0.0-5.0); NEUTROPHILS # 4.1 10^3/uL (1.8-7.7); PLATELET COUNT, AUTOMATED 179 10^3/uL (150-450); RED BLOOD COUNT 4.59 10^6/uL (4.30-6.10); RED CELL DISTRIBUTION WIDTH 12.6 % (11.5-14.5); WHITE BLOOD COUNT 6.1 10^3/uL (4.0-10.0)
[2018-02-22 20:34] LABS: ESTIMATED AVERAGE GLUCOSE 123 MG/DL (60-110); HEMOGLOBIN A1c 5.9 %
[2018-02-22 20:35] LABS: ALBUMIN 3.8 GM/DL (3.2-5.2); ALBUMIN/GLOBULIN RATIO 1.36 (1.00-1.93); ALKALINE PHOSPHATASE 63 U/L (45-117); ALT/SGPT 16 U/L (12-78); ANION GAP 5 MEQ/L (8-16); AST/SGOT 11 U/L (7-37); BILIRUBIN,TOTAL 0.4 MG/DL (0.2-1.0); BLOOD UREA NITROGEN 15 MG/DL (7-18); CALCIUM LEVEL 8.7 MG/DL (8.8-10.2); CARBON DIOXIDE LEVEL 33 MEQ/L (21-32); CHLORIDE LEVEL 106 MEQ/L (98-107); CHOLESTEROL LEVEL 137 MG/DL (<200); CHOLESTEROL RISK RATIO 3.805 (<5); CREATININE FOR GFR 0.98 MG/DL (0.70-1.30); GLOMERULAR FILTRATION RATE > 60.0 (>42); GLUCOSE, FASTING 112 MG/DL (70-100); HDL CHOLESTEROL 36 MG/DL (>40); LDL CHOLESTEROL 84 MG/DL (<100); NON-HDL-C 101 MG/DL; POTASSIUM SERUM 4.7 MEQ/L (3.5-5.1); SODIUM LEVEL 144 MEQ/L (136-145); TOTAL PROTEIN 6.6 GM/DL (6.4-8.2); TRIGLYCERIDES LEVEL 85 MG/DL (<150)
[2018-02-27 00:08] LABS: PSA TOTAL 2.1 ng/mL (0.0-4.0)
== END ==
LOC: M WUC 07:59
DX: I10 Essential (primary) hypertension (principal); Z12.5 Encounter for screening for malignant neoplasm of prostate; R73.01 Impaired fasting glucose
CPT/HCPCS: 80053

== ENCOUNTER → 2018-04-24 | Outpatient (CLI) | payer OTHER | LOC: M RAD 12:38 | DX: R14.0 Abdominal distension (gaseous) (principal); J98.6 Disorders of diaphragm; J44.9 Chronic obstructive pulmonary disease, unspecified | CPT/HCPCS: 71250 ==

== ENCOUNTER → 2018-07-24 | Outpatient (CLI) | payer MEDICARE ==
[~2018-07-24] MED LIST changes: +VANC125C2 PO; +XARE20TA PO
--- NOTE | 2018-07-24 10:39 | REP ---
LEFT KNEE, FIVE VIEWS: HISTORY: Pain. There is no acute fracture or dislocation. There is moderate narrowing of the medial and mild narrowing of the lateral knee joint space. The patellofemoral joint space is normal in appearance. Calcification is present medial to the tibia. This represents ligamentous or tendon calcification. IMPRESSION: Degenerative change as described above. Electronically Signed by Siddharth Kaur MD 07/24/2018 10:44 A
[2018-07-24 13:32] LABS: BASO # 0.1 10^3/uL (0.0-0.2); BASO % 0.9 % (0.0-1.0); EOS # 0.2 10^3/uL (0.0-0.50); EOS % 3.3 % (0.0-3.0); HEMATOCRIT 44.5 % (42.0-52.0); HEMOGLOBIN 14.7 g/dl (13.5-17.5); LYMPH # 1.1 10^3/uL (1.5-4.5); LYMPH % 19.3 % (24.0-44.0); MEAN CORPUSCULAR HEMOGLOBIN 32.7 pg (27.0-33.0); MEAN CORPUSCULAR VOLUME 98.9 fl (80.0-96.0); MONO # 0.6 10^3/uL (0.0-0.8); MONO % 9.6 % (0.0-5.0); NEUTROPHILS # 3.9 10^3/uL (1.8-7.7); NEUTROPHILS % 66.6 % (36.0-66.0); PLATELET COUNT, AUTOMATED 180 10^3/uL (150-450); WHITE BLOOD COUNT 5.8 10^3/uL (4.0-10.0)
[2018-07-24 13:47] LABS: ALBUMIN 3.6 GM/DL (3.2-5.2); ALT/SGPT 16 U/L (12-78); BILIRUBIN,TOTAL 0.5 MG/DL (0.2-1.0); BLOOD UREA NITROGEN 11 MG/DL (7-18); CALCIUM LEVEL 8.7 MG/DL (8.8-10.2); CARBON DIOXIDE LEVEL 32 MEQ/L (21-32); CHLORIDE LEVEL 106 MEQ/L (98-107); CHOLESTEROL LEVEL 146 MG/DL (<200); CHOLESTEROL RISK RATIO 4.294 (<5); CREATININE FOR GFR 0.88 MG/DL (0.70-1.30); GLOMERULAR FILTRATION RATE > 60.0 (>42); GLUCOSE, FASTING 98 MG/DL (70-100); HDL CHOLESTEROL 34 MG/DL (>40); LDL CHOLESTEROL 98 MG/DL (<100); NON-HDL-C 112 MG/DL; POTASSIUM SERUM 4.7 MEQ/L (3.5-5.1); SODIUM LEVEL 141 MEQ/L (136-145); TOTAL PROTEIN 6.3 GM/DL (6.4-8.2); TRIGLYCERIDES LEVEL 72 MG/DL (<150)
[2018-07-24 14:22] LABS: HEMOGLOBIN A1c 5.8 %
== END ==
LOC: M WUC 08:49
PROVIDERS: ATTEND Nurse Practitioner Family
DX: M17.12 Unilateral primary osteoarthritis, left knee (principal); I10 Essential (primary) hypertension; R73.01 Impaired fasting glucose; E78.49 Other hyperlipidemia

== ENCOUNTER → 2018-10-31 | Outpatient (CLI) | payer MEDICARE ==
[~2018-10-31] MED LIST changes: -VANC125C2 PO; +VANC125C3 PO
--- NOTE | 2018-10-31 14:08 | REP ---
CT CHEST WITHOUT CONTRAST: HISTORY: Nonspecific abnormal finding of the lung peters. Comparison chest CT studies are from April 24, 2018 and January 07, 2018. FINDINGS: Preliminary drug abuse treatment specialist view demonstrates elevation of the left hemidiaphragm unchanged. On lung window settings, there is a 15 mm pleural-based nodule again noted in the apex of the right lung. Page 18 of 112 in series 201 of today's study. This is stable since the January 07, [address] study. No new pulmonary nodule is appreciated. There is atelectasis with air bronchograms in the left lower lobe above the elevated left hemidiaphragm unchanged. Mild linear fibrosis is seen in the right base. No hilar or mediastinal mass or adenopathy is seen. Vascular calcifications again noted. No pleural or pericardial effusion is seen. There is a cyst in the upper pole right kidney which measures 7.2 cm. This is unchanged. There is calcific material in the dependent portion of the gallbladder consistent with cholelithiasis. IMPRESSION: Chronic elevation left hemidiaphragm. Stable 15 mm noncalcified pleural based nodule in the right upper lobe in the apex. No change in the interval since December 30, 2017. Follow-up CT study suggested in 6-9 months. Electronically Signed by Michael Galaviz MD 10/31/2018 03:36 P
== END ==
LOC: M RAD 10:50
PROVIDERS: ATTEND Internal Medicine Pulmonary Disease
DX: R91.8 Other nonspecific abnormal finding of lung field (principal)

== ENCOUNTER → 2019-01-08 | Outpatient (REF) | payer MEDICARE ==
[2019-01-08 17:38] LABS: BLOOD UREA NITROGEN 12 MG/DL (7-18); CALCIUM LEVEL 9.1 MG/DL (8.8-10.2); CARBON DIOXIDE LEVEL 35 MEQ/L (21-32); CHLORIDE LEVEL 103 MEQ/L (98-107); CREATININE FOR GFR 1.05 MG/DL (0.70-1.30); GLOMERULAR FILTRATION RATE > 60.0 (>42); GLUCOSE, FASTING 103 MG/DL (70-100); MAGNESIUM LEVEL 2.2 MG/DL (1.8-2.4); POTASSIUM SERUM 4.2 MEQ/L (3.5-5.1); SODIUM LEVEL 140 MEQ/L (136-145)
== END ==
LOC: M SFHCPLAZ 15:05
DX: I49.9 Cardiac arrhythmia, unspecified (principal)
CPT/HCPCS: 80048; 83735; 84443; 87804; G0463

== ENCOUNTER → 2019-09-21 | Outpatient (CLI) | payer MEDICARE ==
[~2019-09-21] MED LIST changes: +INCR1INH IN; -MONT10TA2 PO; +MONT10TA4 PO; -OMEP40CA2 PO; +OMEP40CA97 PO; +VENTAER INH
== END ==
LOC: M LABSMTC 13:03
PROVIDERS: ATTEND Anesthesiology
DX: Z01.812 Encounter for preprocedural laboratory examination (principal); Z11.59 Encounter for screening for other viral diseases
CPT/HCPCS: C9803; U0003

== ENCOUNTER 2019-09-24 11:10 | Day surgery (SDC) | payer MEDICARE ==
[~2019-09-24] VITALS: Ht 167.6 cm; Wt 108.4 kg
[~2019-09-24 11:10] MED LIST changes: +NS 1,000 ML IV ONE
[2019-09-24] MEDS ORDERED: propofoL 500 MG/50 ML VIAL As Ordered ONE (12:35)
[2019-09-24] MEDS ORDERED: LIDOCAINE 2% 100MG/5ML SDV (FOR ANES.) As Ordered ONE (12:35)
[2019-09-24] MEDS ORDERED: fentaNYL 100 MCG/2 ML INJECTION (J3010) As Ordered ONE (12:39)
--- NOTE | 2019-09-24 13:24 | ROOR ---
Patient Name: Catarino Turcios Procedure Date: 09/24/2019 12:55 PM Date of : 1945 Age: 74 Room: OP02 Gender: Male Note Status: Finalized Procedure: Upper GI endoscopy Indications: Surveillance for malignancy due to personal history of Toscano's esophagus with High Grade dysplasia in 2014. this is a repeat exam. Pt did not follow through on treatment in 2014. This is a 5 yr follow up exam to assess to r/o malignancy. Providers: Catarino HEATON MD Referring MD: Maritza SALGADO DO Requesting Provider: Medicines: Monitored Anesthesia Care Complications: No immediate complications. Procedure: Pre-Anesthesia Assessment: - The heart rate, respiratory rate, oxygen saturations, blood pressure, adequacy of pulmonary ventilation, and response to care were monitored throughout the procedure. The Endoscope was introduced through the mouth, and advanced to the second part of duodenum. The upper GI endoscopy was accomplished without difficulty. The patient tolerated the procedure well. Findings: The esophagus and gastroesophageal junction were examined with white light and narrow band imaging (NBI) from a forward view and retroflexed position. There were esophageal mucosal changes secondary to established short-segment Toscano's disease. These changes involved the mucosa along an irregular Z-line (38 cm from the incisors). Diffuse salmon-colored mucosa was present from 38 to 40 cm and nodularity was present from 38 to 39 cm. The maximum longitudinal extent of these esophageal mucosal changes was 2 cm in length. Mucosa was biopsied with a cold forceps for histology. A total of 2 specimen bottles were sent to pathology. Evidence of a fundoplication was found in the cardia. The entire examined stomach was normal. The examined duodenum was normal. Impression: - Esophageal mucosal changes secondary to established short-segment Toscano's disease. There is a 1 cm mucosal nodularity and deformity seen in this segment. Biopsied to r/o malignancy. - A fundoplication was found. - Normal stomach. - Normal examined duodenum. Recommendation: - Telephone endoscopist for pathology results in 2 weeks. - I will again refer you for further management of your barretts esophagus with previously known high grade dysplasia/probable early esophageal cancer. I am waiting for todays pathology report. My office/I will call you once referral made. Catarino Heaton MD Catarino HEATON MD 09/24/2019 1:24:05 PM Electronically signed by Catarino HEATON MD Number of Addenda: 0 Note Initiated On: 09/24/2019 12:55 PM Estimated Blood Loss: Estimated blood loss: none.
[2019-09-24 13:50] VITALS: BP 151/83
== END 2019-09-24 13:57 | disposition home or self-care (01) ==
LOC: M OPP 11:10
PROVIDERS: ATTEND Internal Medicine Gastroenterology
DX: K22.711 Barrett's esophagus with high grade dysplasia (principal); Z98.890 Other specified postprocedural states; F17.210 Nicotine dependence, cigarettes, uncomplicated; G21.9 Secondary parkinsonism, unspecified; J44.9 Chronic obstructive pulmonary disease, unspecified; I10 Essential (primary) hypertension; Z79.899 Other long term (current) drug therapy; Z88.8 Allergy status to other drugs, medicaments and biological substances; Z91.013 Allergy to seafood; Z91.018 Allergy to other foods
CPT/HCPCS: 43239; 88305; J3010

== ENCOUNTER → 2019-11-05 | Outpatient (CLI) | payer MEDICARE ==
[~2019-11-05] MED LIST changes: -NS 1,000 ML IV ONE
--- NOTE | 2019-11-05 16:26 | REP ---
REASON FOR EXAM: Followup nodule. COMPARISON: Multiple all reviewed, the latest 10/31/2018 which showed a 1.5 cm sized noncalcified pleural-based nodule in the right upper lobe. Chronic elevation of the left hemidiaphragm was also noted and found to be stable. There is no significant change in the appearance of the mediastinum or pulmonary kaveh. There is no significant change in the appearance of the imaged upper abdomen or imaged osseous structure. Evaluation of the lung field shows no change in the right upper lobe nodule. There are mild basilar fibrotic changes and chronic subsegmental atelectatic changes particularly on the left status quo. No new abnormal nodules, masses, or opacities have developed. IMPRESSION: Stable CT examination of the chest. Lung RADS category 2. Electronically Signed by Elie Carpenter DO 11/05/2019 04:30 P
== END ==
LOC: M RAD 14:08
PROVIDERS: ATTEND Internal Medicine Pulmonary Disease
DX: R91.8 Other nonspecific abnormal finding of lung field (principal)

== ENCOUNTER → 2020-01-29 | Outpatient (CLI) | payer MEDICARE ==
[2020-01-29 18:45] LABS: ALBUMIN 3.7 GM/DL (3.2-5.2); ALT/SGPT 23 U/L (12-78); BILIRUBIN,TOTAL 0.5 MG/DL (0.2-1.0); BLOOD UREA NITROGEN 12 MG/DL (7-18); CALCIUM LEVEL 8.7 MG/DL (8.8-10.2); CARBON DIOXIDE LEVEL 34 MEQ/L (21-32); CHLORIDE LEVEL 103 MEQ/L (98-107); CHOLESTEROL LEVEL 143 MG/DL (<200); CHOLESTEROL RISK RATIO 3.575 (<5); CREATININE FOR GFR 1.02 MG/DL (0.70-1.30); GLOMERULAR FILTRATION RATE > 60.0 (>42); GLUCOSE, FASTING 78 MG/DL (70-100); HDL CHOLESTEROL 40 MG/DL (>40); LDL CHOLESTEROL 85 MG/DL (<100); MAGNESIUM LEVEL 2.1 MG/DL (1.8-2.4); NON-HDL-C 103 MG/DL; POTASSIUM SERUM 4.6 MEQ/L (3.5-5.1); SODIUM LEVEL 140 MEQ/L (136-145); TOTAL PROTEIN 6.8 GM/DL (6.4-8.2); TRIGLYCERIDES LEVEL 92 MG/DL (<150)
[2020-01-29 18:53] LABS: HEMOGLOBIN A1c 5.6 %
== END ==
LOC: M PLALAB 15:31
PROVIDERS: ATTEND Student in an Organized Health Care Education/Training Program
DX: E78.5 Hyperlipidemia, unspecified (principal); I10 Essential (primary) hypertension; F17.200 Nicotine dependence, unspecified, uncomplicated; Z79.899 Other long term (current) drug therapy

== ENCOUNTER → 2020-03-13 | Outpatient (CLI) | payer MEDICARE | LOC: M LABSMTC 09:39 | PROVIDERS: ATTEND Anesthesiology | DX: Z01.812 Encounter for preprocedural laboratory examination (principal); Z20.828 Contact with and (suspected) exposure to other viral communicable diseases | CPT/HCPCS: C9803; U0003 ==

== ENCOUNTER 2020-03-18 12:18 | Day surgery (SDC) | payer MEDICARE ==
[~2020-03-18] VITALS: Ht 167.6 cm; Wt 108.4 kg
[~2020-03-18 12:18] MED LIST changes: +NS 1,000 ML IV ONE
[2020-03-18] MEDS ORDERED: propofoL 200 MG/20 ML VIAL As Ordered ONE (14:00)
[2020-03-18] MEDS ORDERED: LIDOCAINE 2% 100MG/5ML SDV (FOR ANES.) As Ordered ONE (14:00)
[2020-03-18] MEDS ORDERED: LIDOCAINE 2% INJ 100 MG/5 ML SYRINGE As Ordered ONE (14:11)
--- NOTE | 2020-03-18 14:55 | ROOR ---
Patient Name: Catarino Turcios Procedure Date: 03/18/2020 2:08 PM Date of : 1945 Age: 75 Room: OP02 Gender: Male Note Status: Finalized Procedure: Upper GI endoscopy Indications: Surveillance for malignancy due to personal history of Toscano's esophagus. (Known Barretts with HGD/Intramucosal CA--he is s/p EUS and EMR intramucosal adenoca/esophageal nodule. This exam done to assess completeness of EMR and for possible future RFA.) Providers: Catarino HEATON MD Referring MD: Miracle Dixony-1 Jude Requesting Provider: Medicines: Monitored Anesthesia Care Complications: No immediate complications. Procedure: Pre-Anesthesia Assessment: - The heart rate, respiratory rate, oxygen saturations, blood pressure, adequacy of pulmonary ventilation, and response to care were monitored throughout the procedure. The Endoscope was introduced through the mouth, and advanced to the second part of duodenum. The upper GI endoscopy was accomplished without difficulty. The patient tolerated the procedure well. Findings: The esophagus and gastroesophageal junction were examined with white light and narrow band imaging (NBI) from a forward view and retroflexed position. There were esophageal mucosal changes secondary to established short-segment Toscano's disease. These changes involved the mucosa extending to the Z-line. [place]-colored mucosa was present. The maximum longitudinal extent of these esophageal mucosal changes was 2 cm in length. Mucosa was biopsied with a cold forceps for histology in a targeted manner from 38 to 40 cm from the incisors. One specimen bottle was sent to pathology. Evidence of a fundoplication was found in the cardia. The exam of the stomach was otherwise normal. Two 5 mm sessile polyps were found in the second portion of the duodenum. The polyp was removed with a cold snare. Resection and retrieval were complete. Impression: - Esophageal mucosal changes secondary to established 2 cm-segment Toscano's disease. Smooth without nodularity. Biopsied. - A fundoplication was found. - Two duodenal polyps. Resected and retrieved. Recommendation: - Await pathology results. - If HGD, then will proceed with RFA - If AdenoCA then will refer for repeat EMR or esophagectomy/surgery - Telephone endoscopist for pathology results in 2 weeks. Catarino Heaton MD Catarino HEATON MD 03/18/2020 2:54:44 PM Electronically signed by Catarino HEATON MD Number of Addenda: 0 Note Initiated On: 03/18/2020 2:08 PM Estimated Blood Loss: Estimated blood loss: none.
[2020-03-18 15:20] VITALS: BP 172/70
== END 2020-03-18 15:20 | disposition home or self-care (01) ==
LOC: M OPP 12:18
PROVIDERS: ATTEND Internal Medicine Gastroenterology
DX: K31.7 Polyp of stomach and duodenum (principal); Z98.890 Other specified postprocedural states; K22.711 Barrett's esophagus with high grade dysplasia; K31.89 Other diseases of stomach and duodenum; I10 Essential (primary) hypertension; E78.5 Hyperlipidemia, unspecified; J44.9 Chronic obstructive pulmonary disease, unspecified; G47.30 Sleep apnea, unspecified; Z79.899 Other long term (current) drug therapy; Z88.6 Allergy status to analgesic agent; Z91.013 Allergy to seafood; Z91.018 Allergy to other foods

== ENCOUNTER → 2020-05-03 | Outpatient (CLI) | payer MEDICARE ==
[~2020-05-03] MED LIST changes: -MONT10TA4 PO; +MONT5TAB2 PO; -NS 1,000 ML IV ONE
[2020-05-03 11:16] LABS: BASO # 0.1 10^3/uL (0.0-0.2); EOS # 0.1 10^3/uL (0.0-0.5); EOS % 1.9 % (0.0-3.0); HEMATOCRIT 47.3 % (42.0-52.0); HEMOGLOBIN 15.1 g/dl (13.5-17.5); LYMPH % 14.1 % (24.0-44.0); MEAN CORPUSCULAR HEMOGLOBIN 32.1 pg (27.0-33.0); MEAN CORPUSCULAR HGB CONC 31.9 g/dl (32.0-36.5); MEAN CORPUSCULAR VOLUME 100.6 fl (80.0-96.0); MONO # 0.6 10^3/uL (0.0-0.8); MONO % 8.5 % (0.0-5.0); NEUTROPHILS % 74.1 % (36.0-66.0); PLATELET COUNT, AUTOMATED 108 10^3/uL (150-450); WHITE BLOOD COUNT 6.7 10^3/uL (4.0-10.0)
[2020-05-03 11:26] LABS: INR 0.98; PROTHROMBIN TIME 13.2 SECONDS (12.5-14.3)
[2020-05-03 12:03] LABS: ALBUMIN 3.8 GM/DL (3.2-5.2); ALT/SGPT 18 U/L (12-78); BILIRUBIN,TOTAL 0.6 MG/DL (0.2-1.0); BLOOD UREA NITROGEN 11 MG/DL (7-18); CALCIUM LEVEL 8.8 MG/DL (8.8-10.2); CARBON DIOXIDE LEVEL 35 MEQ/L (21-32); CHLORIDE LEVEL 104 MEQ/L (98-107); CREATININE FOR GFR 0.98 MG/DL (0.70-1.30); GLOMERULAR FILTRATION RATE > 60.0 (>42); GLUCOSE, FASTING 90 MG/DL (70-100); POTASSIUM SERUM 4.4 MEQ/L (3.5-5.1); SODIUM LEVEL 140 MEQ/L (136-145); TOTAL PROTEIN 6.7 GM/DL (6.4-8.2)
== END ==
LOC: M LAB 09:46
PROVIDERS: ATTEND Internal Medicine Gastroenterology
DX: K22.711 Barrett's esophagus with high grade dysplasia (principal)

== ENCOUNTER → 2020-05-12 | Outpatient (CLI) | payer MEDICARE | LOC: M LABSMTC 11:07 | PROVIDERS: ATTEND Anesthesiology | DX: Z01.812 Encounter for preprocedural laboratory examination (principal); Z20.828 Contact with and (suspected) exposure to other viral communicable diseases ==

== ENCOUNTER 2020-05-17 11:41 | Day surgery (SDC) | payer MEDICARE ==
[~2020-05-17] VITALS: Ht 167.6 cm; Wt 110.1 kg
[~2020-05-17 11:41] MED LIST changes: -INCR1INH IN; +INCR1INH INH; +LR 1,000 ML IV ONE; +NS 1,000 ML IV ONE
[2020-05-17] MEDS ORDERED: propofoL 200 MG/20 ML VIAL As Ordered ONE (11:53)
[2020-05-17] MEDS ORDERED: LIDOCAINE 2% 100MG/5ML SDV (FOR ANES.) As Ordered ONE (11:53)
[2020-05-17] MEDS ORDERED: ROCURONIUM BROMIDE 50 MG/5 ML VIAL As Ordered ONE (11:53)
[2020-05-17] MEDS ORDERED: MIDAZOLAM INJ 2MG/2ML VIAL (J2250 PER 1MG) As Ordered ONE (11:54)
[2020-05-17] MEDS ORDERED: ONDANSETRON 4MG/2ML VIAL As Ordered ONE (11:54)
[2020-05-17] MEDS ORDERED: dexameTHASONE 4 MG/ML 1ML VIAL (J1100 PER 1MG) As Ordered ONE (11:54)
[2020-05-17] MEDS ORDERED: fentaNYL 100 MCG/2 ML INJECTION (J3010) As Ordered ONE ×2 (11:54→14:43)
[2020-05-17] MEDS ORDERED: ACETYLCYSTEINE 20% 30 ML VIAL As Ordered ONE (14:17)
[2020-05-17] MEDS ORDERED: ACETAMINOPHEN 1000MG 100ML IV BTL (OFIRMEV) (J0131 PER 10MG) As Ordered ONE (14:27)
[2020-05-17] MEDS ORDERED: SUGAMMADEX SODIUM 500 MG/5 ML VIAL (BRIDION) As Ordered ONE (14:28)
--- NOTE | 2020-05-17 15:16 | ROOR ---
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 Procedure: Pre-Anesthesia Assessment: - The heart rate, respiratory rate, oxygen saturations, blood pressure, adequacy of pulmonary ventilation, and response to care were monitored throughout the procedure. The Endoscope was introduced through the mouth, and advanced to the second part of duodenum. The upper GI endoscopy was accomplished without difficulty. The patient tolerated the procedure well. Findings: The esophagus and gastroesophageal junction were examined with white light and narrow band imaging (NBI) from a forward view and retroflexed position. There were esophageal mucosal changes secondary to established Toscano's disease. These changes involved the mucosa along an irregular Z-line (40 cm from the incisors). Circumferential salmon-colored mucosa was present from 37 to 40 cm and no visible abnormalities were present. The maximum longitudinal extent of these esophageal mucosal changes was 3 cm in length. Two 10 mm sessile polyps were found in the second portion of the duodenum. This was biopsied with a cold forceps for histology. Evidence of a fundoplication was found in the cardia. The wrap appeared intact. Circumferential radiofrequency ablation of Toscano's esophagus was performed using the [employer] Corpx 360 Express catheter and balloon-based endoscopic ablation system. With the endoscope in place, the position and extent of the Toscano's mucosa and the anatomic landmarks including proximal and distal extent of Toscano's mucosa were noted. Endoscopic visualization identified an ablation site including the entire visible Toscano's segment. The Toscano's mucosa was irrigated with N-acetylcysteine (Mucomyst) 1% mixed with water. A guidewire was passed down the biopsy channel of the endoscope. As the endoscope was withdrawn from the mouth, the guidewire was left in place. An auto-sizing radiofrequency ablation balloon catheter was passed transorally over the guidewire into the esophagus. The endoscope was introduced in a [id number] manner with the ablation catheter. Under direct endoscopic visualization, the balloon ablation catheter was positioned appropriately. The balloon was automatically inflated, and energy was applied at 12 J/cm2. The balloon electrode was moved 4 cm distally, so that the proximal edge of the electrode was aligned with the distal edge of the ablation zone. The process of balloon inflation and ablation was repeated until the top of the gastric folds was reached. The ablation catheter and guidewire were removed, and the balloon was cleaned. The ablation zone was then cleaned of overlying coagulative debris using irrigation and suction via the endoscope and a cleaning cap. The guidewire was reinserted, and then the ablation catheter was reintroduced into the esophagus over the wire. The ablation catheter was positioned under direct endoscopic visualization so that the proximal edge of the electrode was at the proximal edge of the ablation zone. Reinflation and a second round of ablation were performed with the application of 12 J/cm2 to re-treat the Toscano's epithelium already treated with the first round of ablation. The ablation catheter and guidewire were then removed. The areas of the esophagus where Toscano's mucosa had been ablated were then examined with the endoscope. Areas of visible Toscano's esophagus were completely ablated. Impression: - Esophageal mucosal changes secondary to established Toscano's disease. - Circumferential radiofrequency ablation for Toscano's esophagus performed (using the Barr[employer] 360 Express ablation catheter). - A fundoplication was found. The wrap appears intact. - Two duodenal polyps. Biopsied. Recommendation: - My Office will call you shortly to re-schedule for the next treatment/follow up session in about 2 months. Start a full liquid diet today. Eat a soft diet for one week. Continue your usual Reflux medication twice a day indefinitely. You may not need pain medications, but I would recommend you fill the scripts provided, just in case: 1) Viscous Lidocaine 2%- 5 ml every 4 hrs as needed for moderate swallowing pain. 2) Carafate suspension-10 ml every 6-8 hrs for 1 month. 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 All rights reserved. The codes documented in this report are preliminary and upon credit historian review may be revised to meet current compliance requirements. Catarino Heaton MD Catarino HEATON MD 05/17/2020 3:16:37 PM Electronically signed by Catarino HEATON MD Number of Addenda: 0 Note Initiated On: 05/17/2020 12:34 PM Estimated Blood Loss: Estimated blood loss: none.
[2020-05-17] MEDS ORDERED: fentaNYL 100 MCG/2 ML INJECTION (J3010) IV PRN (16:00)
[2020-05-17] MEDS ORDERED: LR 1,000 ML IV SCH (16:00)
[2020-05-17] MEDS ORDERED: ONDANSETRON 4MG/2ML VIAL IV PRN (16:00)
[2020-05-17 16:40] VITALS: BP 141/76
== END 2020-05-17 17:12 | disposition home or self-care (01) ==
LOC: M SDC 11:41
PROVIDERS: ATTEND Internal Medicine Gastroenterology
DX: K31.7 Polyp of stomach and duodenum (principal); K22.711 Barrett's esophagus with high grade dysplasia; E78.5 Hyperlipidemia, unspecified; I10 Essential (primary) hypertension; G47.30 Sleep apnea, unspecified; K44.9 Diaphragmatic hernia without obstruction or gangrene; J44.9 Chronic obstructive pulmonary disease, unspecified; K21.9 Gastro-esophageal reflux disease without esophagitis; Z88.8 Allergy status to other drugs, medicaments and biological substances; Z91.018 Allergy to other foods; Z91.013 Allergy to seafood; Z79.899 Other long term (current) drug therapy
CPT/HCPCS: 43239; 43270; 88305; J0131; J1100; J2250; J2405; J3010

== ENCOUNTER → 2020-09-11 | Outpatient (CLI) | payer MEDICARE ==
[~2020-09-11] MED LIST changes: +FLUT15.820; +LISI10TA22 PO; -LISI10TA4 PO; +LISI20TA33; -LR 1,000 ML IV ONE; +MONT10TA10 PO; -MONT5TAB2 PO; -NS 1,000 ML IV ONE
== END ==
LOC: M LABSMTC 08:14
PROVIDERS: ATTEND Anesthesiology
DX: Z01.812 Encounter for preprocedural laboratory examination (principal); Z11.52 Encounter for screening for COVID-19

== ENCOUNTER 2020-09-16 05:57 | Day surgery (SDC) | payer MEDICARE, OTHER ==
[~2020-09-16] VITALS: Ht 167.6 cm; Wt 111.2 kg
[2020-09-16] MEDS ORDERED: LR 1,000 ML IV ONE (06:00)
[2020-09-16] MEDS ORDERED: propofoL 200 MG/20 ML VIAL As Ordered ONE (07:12)
[2020-09-16] MEDS ORDERED: LIDOCAINE 2% 100MG/5ML SDV (FOR ANES.) As Ordered ONE (07:12)
[2020-09-16] MEDS ORDERED: fentaNYL 100 MCG/2 ML INJECTION (J3010) As Ordered ONE (07:12)
[2020-09-16] MEDS ORDERED: ACETYLCYSTEINE 20% 30 ML VIAL As Ordered ONE (07:17)
[2020-09-16] MEDS ORDERED: ROCURONIUM BROMIDE 50 MG/5 ML VIAL As Ordered ONE (07:35)
[2020-09-16] MEDS ORDERED: dexameTHASONE 4 MG/ML 1ML VIAL (J1100 PER 1MG) As Ordered ONE (07:55)
[2020-09-16] MEDS ORDERED: SUGAMMADEX SODIUM 500 MG/5 ML VIAL (BRIDION) As Ordered ONE (07:55)
[2020-09-16] MEDS ORDERED: ONDANSETRON 4MG/2ML VIAL As Ordered ONE (07:55)
--- NOTE | 2020-09-16 08:22 | ROOR ---
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 Procedure: Pre-Anesthesia Assessment: - The heart rate, respiratory rate, oxygen saturations, blood pressure, adequacy of pulmonary ventilation, and response to care were monitored throughout the procedure. The Endoscope was introduced through the mouth, and advanced to the second part of duodenum. The upper GI endoscopy was accomplished without difficulty. The patient tolerated the procedure well. Findings: There were esophageal mucosal changes secondary to established Toscano's disease present in the distal esophagus. The maximum longitudinal extent of these mucosal changes was 2-2.5 cm in length in form of scattered islands and a small distal circumferential ring of barretts. There mucosa was smooth without nodularity or stricture. Circumferential radiofrequency ablation of Toscano's esophagus was performed using the [employer] 360 Express catheter and balloon-based endoscopic ablation system. With the endoscope in place, the position and extent of the Toscano's mucosa and the anatomic landmarks including proximal and distal extent of Toscano's mucosa were noted. Endoscopic visualization identified an ablation site including the entire visible Toscano's segment. A guidewire was passed down the biopsy channel of the endoscope. As the endoscope was withdrawn from the mouth, the guidewire was left in place. An auto-sizing radiofrequency ablation balloon catheter was passed transorally over the guidewire into the esophagus. The endoscope was introduced in a [id number] manner with the ablation catheter. Under direct endoscopic visualization, the balloon ablation catheter was positioned so that the proximal edge of the electrode was slightly above the proximal edge of the Toscano's mucosa. The balloon was automatically inflated, and energy was applied at 12 J/cm2. The ablation zone was then cleaned of overlying coagulative debris using irrigation and suction via the endoscope. The guidewire was reinserted, and then the ablation catheter was reintroduced into the esophagus over the wire. The ablation catheter was positioned under direct endoscopic visualization so that the proximal edge of the electrode was at the proximal edge of the ablation zone. Reinflation and a second round of ablation were performed with the application of 12 J/cm2 to re-treat the Toscano's epithelium already treated with the first round of ablation. The ablation catheter and guidewire were then removed. The areas of the esophagus where Tsocano's mucosa had been ablated were then examined with the endoscope. Areas of visible Toscano's esophagus were completely ablated. A small hiatal hernia was present. The exam was otherwise without abnormality. Impression: - Esophageal mucosal changes secondary to established Toscano's disease. This is improved from previous treatment. Mucosa is smooth, without nodularity. Treated with radiofrequency ablation. - Small hiatal hernia. - The examination was otherwise normal. - No specimens collected. Recommendation: - Repeat upper endoscopy in 2 - 3 months for retreatment. - My office will call you to reschedule the procedure. 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 All rights reserved. The codes documented in this report are preliminary and upon coder operator review may be revised to meet current compliance requirements. Catarino Heaton MD Catarino HEATON MD 09/16/2020 8:21:59 AM Electronically signed by Catarino HEATON MD Number of Addenda: 0 Note Initiated On: 09/16/2020 7:40 AM Estimated Blood Loss: Estimated blood loss: none.
[2020-09-16] MEDS ORDERED: fentaNYL 100 MCG/2 ML INJECTION (J3010) IV PRN (08:30)
[2020-09-16] MEDS ORDERED: ONDANSETRON 4MG/2ML VIAL IV PRN (08:30)
[2020-09-16] MEDS ORDERED: LR 1,000 ML IV SCH (08:30)
[2020-09-16 09:46] VITALS: BP 140/74
== END 2020-09-16 09:50 | disposition home or self-care (01) ==
LOC: M SDC 05:57
PROVIDERS: ATTEND Internal Medicine Gastroenterology
DX: D00.1 Carcinoma in situ of esophagus (principal); K22.711 Barrett's esophagus with high grade dysplasia; K44.9 Diaphragmatic hernia without obstruction or gangrene; I10 Essential (primary) hypertension; E78.00 Pure hypercholesterolemia, unspecified; R60.0 Localized edema; J44.9 Chronic obstructive pulmonary disease, unspecified; G47.30 Sleep apnea, unspecified; F17.210 Nicotine dependence, cigarettes, uncomplicated; Z91.018 Allergy to other foods; Z91.013 Allergy to seafood; Z79.899 Other long term (current) drug therapy; Z79.51 Long term (current) use of inhaled steroids
CPT/HCPCS: 43270; J1100; J2405; J3010

== ENCOUNTER → 2020-11-21 | Outpatient (CLI) | payer OTHER ==
[~2020-11-21] MED LIST changes: +OMEP40CA4 PO; -OMEP40CA97 PO; +SUCR1TAB56
--- NOTE | 2020-11-21 10:21 | REP ---
INDICATION: NICOTINE DEPEND COMPARISON: Multiple examinations dating through 04/24/2018 TECHNIQUE: Axial noncontrast images from the thoracic inlet to the upper abdomen using low-dose lung screening technique (LDCT). FINDINGS: The 14 mm nodule in the anterior right apex remains unchanged. Primarily left perihilar and left basilar fibroatelectatic changes associated with chronic elevation to the left hemidiaphragm remain stable. No new acute consolidation, suspicious nodule or mass. No effusion. No pneumothorax. Tracheobronchial tree is patent. IMPRESSION: Lung-RADS category 2. Management recommendations include annual low-dose CT surveillance. <Electronically signed by Vasquez Loving > 11/21/20 1017
== END ==
LOC: M RAD 09:21
PROVIDERS: ATTEND Physician Assistant
DX: F17.218 Nicotine dependence, cigarettes, with other nicotine-induced disorders (principal); Z12.2 Encounter for screening for malignant neoplasm of respiratory organs; R91.1 Solitary pulmonary nodule; J98.6 Disorders of diaphragm

== ENCOUNTER → 2020-11-24 | Outpatient (CLI) | payer OTHER | LOC: M LABSMTC 10:58 | PROVIDERS: ATTEND Anesthesiology | DX: Z01.812 Encounter for preprocedural laboratory examination (principal); Z20.822 Contact with and (suspected) exposure to COVID-19 ==

== ENCOUNTER 2020-11-29 12:44 | Day surgery (SDC) | payer OTHER ==
[~2020-11-29] VITALS: Ht 167.6 cm; Wt 111.9 kg
[~2020-11-29 12:44] MED LIST changes: +NS 1,000 ML IV ONE
[2020-11-29] MEDS ORDERED: fentaNYL 100 MCG/2 ML INJECTION (J3010) As Ordered ONE (14:26)
[2020-11-29] MEDS ORDERED: GLYCOPYRROLATE INJ 0.2 MG/ML 2 ML VIAL As Ordered ONE (14:29)
[2020-11-29] MEDS ORDERED: METOPROLOL 5 MG/5 ML VIAL As Ordered ONE (15:09)
[2020-11-29] MEDS ORDERED: LIDOCAINE 2% 100MG/5ML SDV (FOR ANES.) As Ordered ONE (15:19)
[2020-11-29] MEDS ORDERED: propofoL 200 MG/20 ML VIAL As Ordered ONE (15:19)
--- NOTE | 2020-11-29 15:38 | ROOR ---
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 Procedure: Pre-Anesthesia Assessment: - The heart rate, respiratory rate, oxygen saturations, blood pressure, adequacy of pulmonary ventilation, and response to care were monitored throughout the procedure. The Endoscope was introduced through the mouth, and advanced to the second part of duodenum. The upper GI endoscopy was accomplished without difficulty. The patient tolerated the procedure well. Findings: The Z-line was variable and was found 39 cm from the incisors. Focal radiofrequency ablation of Toscano's esophagus was performed. With the endoscope in place, the position and extent of the Toscano's mucosa and the anatomic landmarks were noted. Endoscopic visualization identified ablation sites including the entire visible Toscano's segment and extending from 39 to 40 cm from the incisors. The Toscano's mucosa was irrigated with water. The radiofrequency channel ablation catheter was introduced through the endoscope working channel. Toscano's tissue was targeted. The endoscope with the ablation catheter was advanced to the areas of Toscano's mucosa. The endoscope with the channel ablation catheter was positioned under direct visualization so that the catheter was placed in contact with the surface of the Toscano's mucosa. Energy was applied twice at 12 J/cm2. Ablation was repeated in a likewise fashion to treat circumferentially around the squamocolumnar junction. The channel ablation catheter was then removed through the endoscope working channel, and the ablation catheter was cleaned. The endoscope was left in place. The ablation zone was cleaned of coagulative debris. A second round of ablation was then performed. Energy was applied twice at 12 J/cm2 to retreat the areas of Toscano's epithelium that had been treated with the first series of ablation. The ablation catheter was removed through the endoscope working channel. The areas of the esophagus where Toscano's mucosa had been ablated were examined. The endoscope was then removed. Evidence of a fundoplication was found in the cardia. The wrap appeared intact. The exam of the stomach was otherwise normal. The examined duodenum was normal. Impression: - Z-line variable, 39 cm from the incisors. Treated with radiofrequency ablation. - A fundoplication was found. The wrap appears intact. - Normal examined duodenum. - No specimens collected. Recommendation: - Repeat upper endoscopy in 2 months to evaluate the response to therapy. - Continue present medications. - Soft diet for 1 week. - Advance diet as tolerated. - To discuss todays findings, my office will call you in the next few days to schedule a follow up appointment. Procedure Code(s): --- Professional --- 19811, Esophagogastroduodenoscopy, flexible, transoral; with ablation of tumor(s), polyp(s), or other lesion(s) (includes pre- and post-dilation and guide wire passage, when performed) Diagnosis Code(s): --- Professional --- K22.8, Other specified diseases of esophagus Z98.890, Other specified postprocedural states K22.711, Toscano's esophagus with high grade dysplasia D00.1, Carcinoma in situ of esophagus Z09, Encounter for follow-up examination after completed treatment for conditions other than malignant neoplasm CPT copyright 2019 [employer]. All rights reserved. The codes documented in this report are preliminary and upon receiving manager review may be revised to meet current compliance requirements. Catarino Heaton MD Catarino Heaton MD 11/29/2020 3:37:42 PM Electronically signed by Ctaarino Heaton MD Number of Addenda: 0 Note Initiated On: 11/29/2020 3:02 PM Estimated Blood Loss: Estimated blood loss: none.
[2020-11-29 15:50] VITALS: BP 133/78
== END 2020-11-29 16:02 | disposition home or self-care (01) ==
LOC: M OPP 12:44
PROVIDERS: ATTEND Internal Medicine Gastroenterology
DX: K22.8 Other specified diseases of esophagus (principal); Z98.890 Other specified postprocedural states; K22.711 Barrett's esophagus with high grade dysplasia; D00.1 Carcinoma in situ of esophagus; Z08 Encounter for follow-up examination after completed treatment for malignant neoplasm; Z79.899 Other long term (current) drug therapy; Z91.013 Allergy to seafood; Z91.018 Allergy to other foods; F17.210 Nicotine dependence, cigarettes, uncomplicated
CPT/HCPCS: 43270; J3010

== ENCOUNTER → 2021-01-30 | Outpatient (CLI) | payer OTHER ==
[~2021-01-30] MED LIST changes: -LISI20TA33; +LISI20TA33 PO; -NS 1,000 ML IV ONE
== END ==
LOC: M LABSMTC 10:06
PROVIDERS: ATTEND Anesthesiology
DX: Z11.52 Encounter for screening for COVID-19 (principal); Z20.822 Contact with and (suspected) exposure to COVID-19

== ENCOUNTER 2021-02-03 12:32 | Day surgery (SDC) | payer OTHER ==
[~2021-02-03] VITALS: Ht 167.6 cm; Wt 112.5 kg
[~2021-02-03 12:32] MED LIST changes: +NS 1,000 ML IV ONE
[2021-02-03] MEDS ORDERED: LIDOCAINE 2% 100MG/5ML SDV (FOR ANES.) As Ordered ONE (14:07)
[2021-02-03] MEDS ORDERED: fentaNYL 100 MCG/2 ML INJECTION (J3010) As Ordered ONE (14:07)
[2021-02-03] MEDS ORDERED: propofoL 200 MG/20 ML VIAL As Ordered ONE (14:07)
--- NOTE | 2021-02-03 14:40 | ROOR ---
Patient Name: Catarino Turcios Procedure Date: 02/03/2021 2:10 PM Date of : 1945 Age: 75 Room: [facility] Gender: Male Note Status: Finalized Procedure: Upper GI endoscopy Indications: Follow-up of previous ablation treatment of Toscano's esophagus, Follow-up of esophageal carcinoma in situ Providers: Catarino Heaton MD Referring MD: Rubin Jansen Md Requesting Provider: Medicines: Monitored Anesthesia Care Complications: No immediate complications. Procedure: Pre-Anesthesia Assessment: - The heart rate, respiratory rate, oxygen saturations, blood pressure, adequacy of pulmonary ventilation, and response to care were monitored throughout the procedure. The Endoscope was introduced through the mouth, and advanced to the second part of duodenum. The upper GI endoscopy was accomplished without difficulty. The patient tolerated the procedure well. Findings: The esophagus and gastroesophageal junction were examined with white light and narrow band imaging (NBI). Mucosal findings on today's exam: the Z-line was irregular at 38 cm from the incisors. The maximum longitudinal extent of the segment on today's exam was 0.5 cm in length. Mucosa was biopsied with a cold forceps for histology at the gastroesophageal junction. The entire examined stomach was normal. (evidence of previous fundoplication/hiatal hernia repair seen in the cardia) The examined duodenum was normal. Impression: - [place]-colored mucosa was present in the form of an irregularf Z line, suspicious for small residual Toscano's esophagus. Biopsied. - Normal stomach. - Normal examined duodenum. Recommendation: - Telephone endoscopist for pathology results in 2 weeks. - Repeat upper endoscopy for surveillance based on pathology results. 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 All rights reserved. The codes documented in this report are preliminary and upon roof plumber review may be revised to meet current compliance requirements. Catarino Heaton MD Catarino Heaton MD 02/03/2021 2:39:32 PM Electronically signed by Catarino Heaton MD Number of Addenda: 0 Note Initiated On: 02/03/2021 2:10 PM Estimated Blood Loss: Estimated blood loss: none.
[2021-02-03 15:06] VITALS: BP 125/75
== END 2021-02-03 15:05 | disposition home or self-care (01) ==
LOC: M OPP 12:32
PROVIDERS: ATTEND Internal Medicine Gastroenterology
DX: K22.8 Other specified diseases of esophagus (principal); K22.70 Barrett's esophagus without dysplasia; Z85.01 Personal history of malignant neoplasm of esophagus; Z08 Encounter for follow-up examination after completed treatment for malignant neoplasm; Z79.899 Other long term (current) drug therapy; Z91.013 Allergy to seafood; Z91.018 Allergy to other foods; F17.210 Nicotine dependence, cigarettes, uncomplicated
CPT/HCPCS: 43239; 88305; J3010

== ENCOUNTER → 2021-04-08 | Outpatient (CLI) | payer OTHER ==
[~2021-04-08] MED LIST changes: +FIBE625T PO; +HYDR-4571 PO; -NS 1,000 ML IV ONE
== END ==
LOC: M LABSMTC 09:38
PROVIDERS: ATTEND Anesthesiology
DX: Z01.812 Encounter for preprocedural laboratory examination (principal); Z11.52 Encounter for screening for COVID-19

== ENCOUNTER 2021-04-11 13:06 | Day surgery (SDC) | payer OTHER ==
[~2021-04-11] VITALS: Ht 167.6 cm; Wt 99.3 kg
[~2021-04-11 13:06] MED LIST changes: +NS 1,000 ML IV ONE
--- OUTSIDE RECORDS SUMMARY | 2021-04-11 13:11 | CCD ---
Author Author [facility] Organization [facility] Address Unknown Phone Unavailable Care Team Providers Care Furniture Mover Helper Name Role Phone Can Ag Unavailable PROBLEMS Type Condition ICD9-CM Code GBS24-JP Code Onset Dates Condition S tatus W/U Status Risk SNOMED Code Notes Problem BMI 39.0-39.9,adult Z68.39 Active confirmed 358037014 Problem Smoking F17.200 Active confirmed 74551403 Problem Hyperlipidemia, unspecified hyperlipidemia type E7 8.5 Active confirmed 58215435 Problem Hypertension, unspecified type I10 Active confir med 88717071 Problem Chronic diastolic heart failure I50.32 Active confi rmed 501183799 Problem Obstructive sleep apnea G47.33 Active confirmed 00609157 Problem Hypertensive heart disease with heart failure I11. 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 Active confirmed 670631808 Problem COPD exacerbation J44.1 Active confirmed 19 6718734 Problem Bilateral hearing loss, unspecified hearing loss type H91.93 Active confirmed 72642720 ALLERGIES Allergen (clinical drug ingredient) Drug/Non Drug Allergy do cumented on EMR Reaction Allergy Type Onset Date Status Bananas Unknown Non Drug Allergy 02/26/2019 Active Shellfish Shellfish Unknown Non Drug Allergy Active ENCOUNTERS from 1945 to 2021-01-14 Encounter Location Date Provider Diagnosis [facility] [phone] [place] [address] Jan, Can Kellyi Chronic obstructive pulmonar y disease, unspecified COPD type J44.9 IMMUNIZATIONS Vaccine Route Administration Date Status Moderna #1 dose COVID-19(given elsewhere) SARSCOV2 VAC 100MC G/0.5ML IM Unknown Jun 24, 2020 Administered Moderna #2 dose COVID-19(given elsewhere) SARSCOV2 VAC 100MC G/0.5ML IM Unknown July 25, 2020 Administered Influenza Pharmacy Given IM Intramuscular Feb 27, 2019 Admini stered TDAP 0.5mL (Boostrix) IM Intramuscular May 22, 2019 Administe red SOCIAL HISTORY Tobacco Use: Social History Observation Description Date Details (start date - stop date) Current Smoker Sex Assigned At : Social History Observation Description Sex Assigned At Unknown Audit Question Answer Notes Total Score: 0 Interpretation: Alcohol Education Drug and Alcohol Question Answer Notes Total Score: 0 Interpretation: No problems reported Alcohol Screening: Question Answer Notes Did you have a drink containing alcohol in the past year? No Points 0 Interpretation Negative BMI Care Goal Follow-Up Question Answer Notes Above Normal BMI Follow-Up Giving encouragement to exercise Tobacco Use: Question Answer Notes Are you a: current smoker Smoked about 50 year s. Smokes about 5 to 6 cigarettes/week since 6 months earlier to that smoked 1-1/2 pack/week. Smoking Cessation Information Given 05/22/2019 Patient counseled on the dangers of tobacco use and urged to quit: 05/22/2019 How many cigarettes a day do you smoke? 5 or less Are you interested in quitting? Thinking about quitting Counseled the patient on smoking cessation, education provid ed 05/22/2019 REASON FOR REFERRAL No Information VITAL SIGNS No information MEDICATIONS Medication SIG (Take, Route, Frequency, Duration) Notes Start Da te End Date Status Fluticasone Propionate 50 MCG/ACT 1 spray in each nost ril Nasally Once a day for 90 day(s) Active predniSONE 10 MG (48) 4 tablets Orally Daily for 5 day(s) Jul, Unknown Ventolin HFA 108 (90 Base) MCG/ACT 2 puffs as needed I nhalation every 6 hrs for 90 day(s) Active Incruse Ellipta 62.5 MCG/INH 1 puff Inhalation Once a day Active Albuterol Sulfate (2.5 MG/3ML) 0.083% 3 ml as needed I nhalation every 4 hrs for 90 day(s) Active Lisinopril 20 MG 1 tablet Orally Once a day for 90 days Active Omeprazole 40 MG 1 capsule Orally twice daily for 90 day(s) Active guaiFENesin ER 600 MG 1 tablet as needed Orally every 12 hrs for 14 day(s) Dec, Unknown Nicoderm CQ 7 MG/24HR 1 patch to skin Transdermal Once a day for 30 d ays Active Salicylic Acid Wart Remover 27.5 % 1 application Exter marky Once a day for 30 days Oct, Active Pravastatin Sodium 40 MG 1 tablet Orally Once a day for 90 day(s) Active Advair Diskus 500-50 MCG/DOSE 1 puff Inhalation Twice a day Active Montelukast Sodium 10 MG 1 tablet Orally Once a day for 90 days Active Furosemide 40 MG 1 tablet Orally Once a day for 90 days Active PROCEDURES No Information RESULTS No Results REASON FOR VISIT refills MEDICAL (GENERAL) HISTORY Type Description Date Medical History COPD Gold criteria 3 Medical History sleep apnea compliant with CPAP Medical History diastolic heart failure: ec hocardiogram on 12/29/2018: normal LV size with mild LVH and probable normal LV systolic function. Grade 1 diastolic dysfunction. Normal CV pressure but unable to estimate pulmonary artery pressure. Consistent with hypertensive heart disease. Medical History tobacco abuse Medical History hyperlipidemia Medical History hypertensive Medical History Hx of pulmonary nodule curre ntly followed by pulmonary (Dr. 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 Surgical History Abdomin Hernia Surgical History Endoscopy Dr eHaton 09/2019 Goals Section No Information Health Concerns No Information MEDICAL EQUIPMENT No Information MENTAL STATUS No Information FUNCTIONAL STATUS No Information ASSESSMENTS Encounter Date Diagnosis Assessment Notes Treatment Notes Treatm ent Clinical Notes Jan, Chronic obstructive pulmonar y disease, unspecified COPD type (ICD- 10 - J44.9) PLAN OF TREATMENT Medication Medication Name Sig Start Date Stop Date Albuterol Sulfate (2.5 MG/3ML) 0.083% 3 ml as needed I nhalation every 4 hrs for 90 day(s) Advair Diskus 500-50 MCG/DOSE 1 puff Inhalation Twice a day Incruse Ellipta 62.5 MCG/INH 1 puff Inhalation Once a day Nicoderm CQ 7 MG/24HR 1 patch to skin Transdermal Once a day for 30 days Ventolin HFA 108 (90 Base) MCG/ACT 2 puffs as needed I nhalation every 6 hrs for 90 day(s) Furosemide 40 MG 1 tablet Orally Once a day for 90 days Pravastatin Sodium 40 MG 1 tablet Orally Once a day for 90 day(s ) Lisinopril 20 MG 1 tablet Orally Once a day for 90 days Salicylic Acid Wart Remover 27.5 % 1 application Exter marky Once a day for 30 days Oct, Montelukast Sodium 10 MG 1 tablet Orally Once a day for 90 days Omeprazole 40 MG 1 capsule Orally twice daily for 90 day(s) Fluticasone Propionate 50 MCG/ACT 1 spray in each nost ril Nasally Once a day for 90 day(s) Insurance Providers Payer Name Payer Address Payer Phone Insured Name Patient Relati onship to Insured Coverage Start Date Coverage End Date [facility] [address] [address] [facility] [id number] BRENDA GLOVER self
--- OUTSIDE RECORDS SUMMARY | 2021-04-11 13:11 | CCD | Continuity of Care Document ---
Author Author Catarino HEATON MD Organization Unknown Address [address] [place] [address] Phone [phone] Care Team Providers Care Mirror Inspector Name Role Phone Sdio AUTM [phone] Errol Oshea MD AUTM Unavailable Siddharth Jarvis D.O. AUTM [phone] Miracle Roque D.O. AUTM [phone] Rubin Jansen M.D. AUTM [phone] Problems Active Problems Provider Date Obstructive sleep apnea syndrome Michele Espinal D.O. Onset: 03/15/2016 Difficulty breathing Michele Espinal D.O. Onset: 03/15/2016 Chronic obstructive lung disease Michele Espinal D.O. Onset: 03/15/2016 Disorder of diaphragm Michele Espinal D.O. Onset: 03/15/2016 Nicotine dependence, cigarettes, with other nicotine-i nduced disorders Michele Espinal D.O. Onset: 03/15/2016 Acute exacerbation of chronic bronchitis Michele Espinal D.O. Onset: 03/15/2016 Chronic hypoxemic respiratory failure Michele Espinal D.O. On set: 04/10/2016 Chronic rhinitis Michele Espinal D.O. Onset: 10/09/2016 Chronic diastolic heart failure Michele Espinal D.O. Onset: 0 01/16/2017 Other nonspecific abnormal finding of lung field MILLA Woods Onset: 01/16/2018 Social History Type Date Description Comments Sex Unknown Cigarette Use 07/21/2019 Pack Years - 31 ETOH Use Denies alcohol use Tobacco Use Start: [birth year]62 Patient is a current smoker, smo kes every day 1/2 ppd Smoking Status Reviewed: 11/23/20 Patient is a current smoker, smokes every day 1/2 ppd Allergies, Adverse Reactions, Alerts Active Allergies Criticality Reaction | Severity Comments Date Fish-derived Products Unable to assess criticality 01/25/2015 Bananas Unable to assess criticality 01/25/2015 Sucralfate Unable to assess criticality Itching possible 09/23/2020 Inactive Allergies NKDA Unable to assess criticality 01/25/2015 Medications Active Medications SIG Qnty Indications Ordering Provide r Date Spiriva Handihaler 18mcg Capsules inhale 1 capsule via handihaler once daily 1caps J44.9 Kolton Barnes 01/17/[address] 1 by mouth twice a day (barretts esophagus) 60caps D00.1 Cheyenne Araujo 09/05/2020 Ventolin HFA 108(90Base) mcg/Act A erosol 2 puffs four times a day as needed 8gm Kolton BarnesO . 05/26/2020 Combivent Respimat 20-100mcg/Act A erosol inhale 1 puff by mouth 4 times daily as needed 12gm R Kolton PageO. 05/26/2020 Lidocaine Viscous HCL 2% Solution 5 milliliters by mouth every 4 hours as needed for swallowing pain/pressure 100ml Catarino Heaton MD 05/17/2020 Advair Diskus 500-50mcg/Dose Aeros ol 1 puff bid. rinse mouth after using Unknown Pravastatin Sodium 40mg Tablets 1 by mouth every day Unknown Lisinopril 40mg Tablets once a day Unknown Montelukast Sodium 10mg Tablets 1 by mouth every day Unknown Albuterol Sulfate (2 .5mg/3ML) 0.083% Nebulizer 1 vial four times a day as needed Unknown CPAP 9cm 2l bled in lcw Unknown Lasix 40mg Tablets 1 tab by mouth every day 30tabs Unknown Fluticasone Propionate 50mcg/Act Suspension 2 sprays to each nostril daily Unknown Medications Administered in Office Medication SIG Qnty Indications Ordering Provider Date Covid-19 vaccine, Unspecified Inj ection Unknown 07/25/2020 Covid-19 vaccine, Unspecified Inj ection Unknown 06/24/2020 Immunizations CPT Code Status Date Vaccine Lot # [id number] Given 03/07/2016 Pneumococcal PPSV23 12638 Given 03/07/2016 Influenza Virus Split 3 Yrs And Above For Intramuscular Use 64496 Given 02/08/2016 Influenza Virus Split 3 Yrs And Above For Intramuscular Use Vital Signs Date Vital Result Comment 11/23/2020 8:32am BP Systolic 140 mmHg BP Diastolic 80 mmHg Heart Rate 94 /min O2 % BldC Oximetry 94 % Height 65 inches 5'5" Weight 248.50 lb BMI (Body Mass Index) 41.3 kg/m2 [place] Body Weight 136 lb Weight 112.720 kg BSA (Body Surface Area) 2.17 m2 09/05/2020 3:26pm BP Systolic 143 mmHg BP Diastolic 78 mmHg Height 65 inches 5'5" Weight 240.00 lb BMI (Body Mass Index) 39.9 kg/m2 [place] Body Weight 136 lb Weight 108.864 kg BSA (Body Surface Area) 2.14 m2 Results Test Acquired Date Facility Test Result H/L Range Note Laboratory test finding 02/03/2021 [facility] Main Lab [address] [place] [address] [phone] Pathology Request For Service (SEE NOTE) 1 1 FINAL DIAGNOSIS Esophagus, biopsy: High grade dysplasia present in 3 of biopsy fragments. Background Toscano's mucosa and chronic inflammation. No evidence of intramucosal adenocarcinoma. Squamous mucosa with reactive and reparative changes. 02/07/2021 - 1306 CLINICAL DIAGNOSIS Toscano's esophagus 02/06/2021 - 1404 GROSS DIAGNOSIS Received in formalin labeled "biopsy for Toscano's H/O high grade dysplasia" and consists of fragments of tissue 0.3 x 0.2 x 0.1 cm. All in one. -OA 02/06/2021 - 140 Signed KATTY ARAUJO MD 02/07/2021 1307 Procedures Date Code Description Status 02/03/2021 11364 Endoscopy Upper GI Biopsy Comple sisi 11/29/2020 96777 Endoscopy Upper GI W/ Ablation O f Tumors/Polyps/Lesions Completed 11/23/2020 47450 Tobacco Cessation Counseling Com pleted 11/23/2020 45957 Office/Outpatient Established Mo d MDM 30-39 Min Completed 09/16/2020 79797 Endoscopy Upper GI W/ Ablation O f Tumors/Polyps/Lesions Completed 09/05/2020 01336 Office/Outpatient Established Mo d MDM 30-39 Min Completed 2003 [id number] Colonoscopy Completed Medical Devices Description No Information Available Encounters Type Date Location Provider Dx Diagnosis Office Visit 11/23/2020 9:00a [facility] Pulmonary/Thoracic MILLA Shane J44.9 Chronic obstructive pulmonary disease, u nspecified R91.8 Other nonspecific abnormal f inding of lung field F17.218 Nicotine dependence, cigaret matheus, w oth disorders G47.33 Obstructive sleep apnea (ritchie lt) (pediatric) Office Visit 09/05/2020 3:30p [facility] Gastroenterology Pra ctice Catarino Heaton MD 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 Toscano's esophagus with hig h grade dysplasia Assessments Date Code Description Provider 02/03/2021 K22.70 Toscano's esophagus without dysp lasia Catarino Heaton MD 02/03/2021 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 Ronnell Heaton MD 11/29/2020 K22.711 Toscano's esophagus with high gr alejandro dysplasia Catarino Heaton MD 11/29/2020 K22.8 Other specified diseases of esop hagus Catarino Heaton MD 11/29/2020 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 Ronnell Heaton MD 11/29/2020 Z09 Encounter for follow -up examination after completed treatment for conditions other than malignant neoplasm Catarino Heaton MD 11/23/2020 J44.9 Chronic obstructive pulmonary di sease, unspecified MILLA Shane 11/23/2020 R91.8 Other nonspecific abnormal findi ng of lung field MILLA Shane 11/23/2020 F17.218 Nicotine dependence, cigarettes, with other nicotine-induced MILLA Shane 11/23/2020 G47.33 Obstructive sleep apnea (adult) (pediatric) MILLA Shane 09/16/2020 K22.711 Toscano's esophagus with high gr alejandro dysplasia Catarino Heaton MD 09/16/2020 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33 Obstructive sleep apnea (adult) (pediatric) * * New Labs:* FVL/[place], Ordered: 11/23/20 * Follow up:* Follow up in 6 months with [facility]jas Functional Status Description No Information Available Mental Status Description No Information Available Referrals Refer to Reason for Referral Status Appt Date Radiology/Procedure 90095 Closed Catarino Heaton M.D. 71245 Closed 09/16/2020 [facility], Gastroenterology [address] [place] [address], [address] [place] [id number] [phone]
--- OUTSIDE RECORDS SUMMARY | 2021-04-11 13:11 | CCD | Continuity of Care Document ---
Author Author Catarino HEATON MD Organization Unknown Address [address] [place] [address] Phone [phone] Care Team Providers Care Dairy Grazer Name Role Phone Sdio AUTM [phone] Errol Oshea MD AUTM Unavailable Siddharth Jarvis D.O. AUTM [phone] Miracle Roque D.O. AUTM Rubin Jansen M.D. AUTM [phone] Problems Active Problems Provider Date Obstructive sleep [...] Other nonspecific abnormal finding of lung field [place] Onset: 01/16/2018 Social History Type Date Description Comments Sex Unknown Cigarette Use 07/21/2019 Pack Years - 31 ETOH Use Denies alcohol use Tobacco Use Start: [birth year]62 Patient is a current smoker, smo kes every day 1/2 ppd Smoking Status Reviewed: 11/23/20 Patient is a current smoker, smokes every day 1/2 ppd Allergies and adverse reactions Active Allergies Criticality Reaction | Severity Comments [...] CPT Code Status Date Vaccine Lot # [id number] Given 03/07/2016 Pneumococcal PPSV23 64215 Given 03/07/2016 Influenza Virus Split 3 Yrs And Above For Intramuscular Use 15893 Given 02/08/2016 Influenza Virus Split 3 Yrs And Above For Intramuscular Use Vital Signs Date Vital Result Comment 11/23/2020 8:32am BP Systolic 140 mmHg BP Diastolic 80 mmHg Heart Rate 94 /min O2 % BldC Oximetry 94 % Height 65 inches 5'5" Weight 248.50 lb BMI (Body Mass Index) 41.3 kg/m2 [place] Body Weight 136 lb Weight 112.720 kg BSA (Body Surface Area) 2.17 m2 09/05/2020 3:26pm BP Systolic 143 mmHg BP Diastolic 78 mmHg Height 65 inches 5'5" Weight 240.00 lb BMI (Body Mass Index) 39.9 kg/m2 [place] Body Weight 136 lb Weight 108.864 kg BSA (Body Surface Area) 2.14 m2 Results Test Acquired Date Facility Test Result H/L Range Note Laboratory test finding 02/03/2021 [facility] Main Lab [address] [place] [address] [phone] Pathology Request For Service (SEE NOTE) 1 [...] 1307 Procedures Date Code Description Status 02/03/2021 96951 Endoscopy Upper GI Biopsy Comple sisi 11/29/2020 48847 Endoscopy Upper GI W/ Ablation O f Tumors/Polyps/Lesions Completed 11/23/2020 73162 Tobacco Cessation Counseling Com pleted 11/23/2020 74868 Office/Outpatient Established Mo d MDM 30-39 Min Completed 09/16/2020 65735 Endoscopy Upper GI W/ Ablation O f Tumors/Polyps/Lesions Completed 09/05/2020 20900 Office/Outpatient Established Mo d MDM 30-39 Min Completed 2003 [id number] Colonoscopy Completed Medical Devices Description No Information Available Encounters Type Date Location Provider Dx Diagnosis Office Visit 11/23/2020 9:00a [facility] Pulmonary/Thoracic Emanuel Sim, P.A. 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 11/23/2020 R91.8 Other nonspecific abnormal findi ng of lung field Emanuel Sim P.A. 11/23/2020 F17.218 Nicotine dependence, cigarettes, with other nicotine-induced Emanuel Sim P.A. 11/23/2020 G47.33 Obstructive sleep apnea (adult) (pediatric) Emanuel Sim P.A. 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 at [facility] Pulmonary/Thoracic 11/23/2020 - Emanuel Sim, P.A.* J44.9 Chronic obstructive pulmonary disease, unspecified * R91.8 Other nonspecific abnormal finding of lung field * F17.218 Nicotine dependence, cigarettes, with other nicotine-induced * G47.33 Obstructive sleep apnea (adult) (pediatric) * * New Labs:* FVL/[place], Ordered: 11/23/20 * Follow up:* Follow up in 6 months with myra Functional Status Description No Information Available Mental Status Description No Information Available Referrals Refer to Reason for Referral Status Appt Date Radiology/Procedure 01392 Closed
--- OUTSIDE RECORDS SUMMARY | 2021-04-11 13:11 | CCD ---
Author Author [facility] Organization [facility] Address Unknown Phone Unavailable Care Team Providers Care Life Support Technician Name Role Phone Can Ag Unavailable PROBLEMS Type Condition ICD9-CM Code [id number] Code Onset Dates Condition S tatus W/U Status Risk SNOMED Code Notes Problem BMI 39.0-39.9,adult Z68.39 Active confirmed 286127646 Problem Smoking F17.200 Active confirmed 30042936 Problem Hyperlipidemia, unspecified hyperlipidemia type E7 8.5 Active confirmed 45208388 Problem Hypertension, unspecified type I10 Active confir med 25397356 Problem Chronic diastolic heart failure I50.32 Active confi rmed 745754440 Problem Obstructive sleep apnea G47.33 Active confirmed 62596245 Problem Hypertensive heart disease with heart failure I11. 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 Active confirmed 276553548 Problem COPD exacerbation J44.1 Active confirmed 19 6331884 Problem Bilateral hearing loss, unspecified hearing loss type H91.93 Active confirmed 56453269 ALLERGIES Allergen (clinical drug ingredient) Drug/Non Drug Allergy do cumented on EMR Reaction Allergy Type Onset Date Status Bananas Unknown Non Drug Allergy 02/26/2019 Active Glucosamine Shellfish-derived Products Unknown Drug Allergy Active ENCOUNTERS from 1945 to 2021-02-20 Encounter Location Date Provider Diagnosis [address] [phone] [place] [address] Feb, Can Kellyi Chronic obstructive pulmonar y disease, unspecified COPD type J44.9 IMMUNIZATIONS Vaccine Route Administration Date Status Moderna #1 dose COVID-19 (given elsewhere) SARSCOV2 VAC 100M CG/0.5ML IM Unknown Jun 24, 2020 Administered Moderna #2 dose COVID-19 (given elsewhere) SARSCOV2 VAC 100M CG/0.5ML IM Unknown July 25, 2020 Administered Influenza [...] Notes Start Da te End Date Status predniSONE 10 MG (48) 4 tablets Orally Daily for 5 day(s) Jul, Unknown Advair Diskus 500-50 MCG/DOSE 1 puff Inhalation Twice a day for 30 da ys Active Incruse Ellipta 62.5 MCG/INH 1 puff Inhalation Once a day for 30 days Active Albuterol Sulfate (2.5 MG/3ML) 0.083% 3 ml as needed I nhalation every 4 hrs for 90 day(s) Active Furosemide 40 MG TAKE 1 TABLET EVERY DAY for 30 Active Fluticasone Propionate 50 MCG/ACT 1 spray in each nost ril Nasally Once a day for 90 day(s) Active guaiFENesin ER 600 MG 1 tablet as needed Orally every 12 hrs for 14 day(s) Dec, Unknown Nicoderm CQ 7 MG/24HR 1 patch to skin Transdermal Once a day for 30 d ays Active Pravastatin Sodium 40 MG TAKE 1 TABLET EVERY DAY for 30 Active Montelukast Sodium 10 MG 1 tablet Orally Once a day for 90 days Active Ventolin HFA 108 (90 Base) MCG/ACT 2 puffs as needed I nhalation every 6 hrs for 90 day(s) Active Omeprazole 40 MG TAKE 1 CAPSULE TWICE DAILY for 30 Active Lisinopril 20 MG 1 tablet Orally Once a day for 90 days Active Salicylic Acid Wart Remover 27.5 % 1 application Exter marky Once a day for 30 days Oct, Active PROCEDURES No Information RESULTS No Results REASON FOR VISIT refill MEDICAL (GENERAL) HISTORY Type Description Date Medical [...] hypertensive Medical History Hx of pulmonary nodule tyler shaikhly followed by pulmonary (Dr. 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 Surgical History Abdomin Hernia Surgical History Endoscopy Dr Heaton 09/2019 Goals Section No Information Health Concerns No Information MEDICAL EQUIPMENT No Information MENTAL STATUS No Information FUNCTIONAL STATUS No Information ASSESSMENTS Encounter Date Diagnosis Assessment Notes Treatment Notes Treatm ent Clinical Notes Feb, Chronic obstructive pulmonar y disease, unspecified COPD type (ICD- 10 - J44.9) PLAN OF TREATMENT Medication Medication Name Sig Start Date Stop Date Furosemide 40 MG TAKE 1 TABLET EVERY DAY for 30 Omeprazole 40 MG TAKE 1 CAPSULE TWICE DAILY for 30 Albuterol Sulfate (2.5 MG/3ML) 0.083% 3 ml as needed I nhalation every 4 hrs for 90 day(s) Pravastatin Sodium 40 MG TAKE 1 TABLET EVERY DAY for 30 Incruse Ellipta 62.5 MCG/INH 1 puff Inhalation Once a day for 30 days Salicylic Acid Wart Remover 27.5 % 1 application Exter marky Once a day for 30 days 20 Farhan, 2021 Ventolin HFA 108 (90 Base) MCG/ACT 2 puffs as needed I nhalation every 6 hrs for 90 day(s) Fluticasone Propionate 50 MCG/ACT 1 spray in each nost ril Nasally Once a day for 90 day(s) Nicoderm CQ 7 MG/24HR 1 patch to skin Transdermal Once a day for 30 days Advair Diskus 500-50 MCG/DOSE 1 puff Inhalation Twice a day for 30 days Montelukast Sodium 10 MG 1 tablet Orally Once a day for 90 days Lisinopril 20 MG 1 tablet Orally Once a day for 90 days Insurance Providers Payer Name Payer Address Payer Phone Insured Name Patient Relati onship to Insured Coverage Start Date Coverage End Date [facility] [address] [address] [facility] [phone] BRENDA GLOVER self
--- OUTSIDE RECORDS SUMMARY | 2021-04-11 13:11 | CCD | Continuity of Care Document ---
Author Author [facility] Organization Unknown Address [address] [place] [address], [address] [place] [address] Phone [phone] Care Team Providers Care Director Of Outside Sales Name Role Phone MD Rubin Jansen Problems Description No Information Available Social History Type Date Description Comments Sex Unknown ETOH Use Denies alcohol use Tobacco Use Start: Unknown Patient is a current smoker, smo kes every day Allergies, Adverse Reactions, Alerts Active Allergies Criticality Reaction | Severity Comments Date Shellfish-Derived Products Unable to assess criticality 12/29/2020 Bananas Unable to assess criticality 12/29/2020 Medications Active Medications SIG Qnty Indications Ordering Provide r Date Montelukast Sodium 10mg Tablets Take 1 Tablet By Mouth Once Daily For 90 Days Unknown Mometasone Furoate Unknown Advair Diskus Unknown Lisinopril 10mg Tablets Take 1 Tablet By Mouth Once Daily Unknown Amoxicillin 500mg Capsules Take 1 Capsule By Mouth Every 8 Hours Until ALL Taken Unknown Eq Nicotine Step 3 7mg/24HR Patche s 24HR Apply 1 Topically To Skin Once Daily Unknown Lidocaine Viscous HCL 2% Solution Take 5 ML By Mouth Every 4 Hours as Needed For Swallowing Pain Pressure Unknown Lisinopril 20mg Tablets Take 1 Tablet By Mouth Once Daily Unknown Sucralfate 1gm Tablets Take 1 Tablet By Mouth 4 Times Daily. Dissolve Each Tablet In A Tablespoon Of Water. Unknown Fluticasone Propionate 50mcg/Act Suspension MD Jansen Shanmukha Incruse Ellipta 62.5mcg/Inh Aeroso l Inhale 1 puff By Mouth Once Daily Unknown Combivent Respimat 20-100mcg/Act A erosol Inhale 1 puff By Mouth 4 Times Daily as Needed U nknown Albuterol Sulfate HFA 108(90Base) mcg/Act Aerosol Inhale 2 Puffs By Mouth Every 6 Hours as Needed Unknown Fluticasone Propionate/Salmeterol Diskus 500-50mcg/Dose Aerosol Inhale 1 Dose By Mouth Twice Daily Unknown Omeprazole 40mg Capsules DR Inderjit MD, [facility] Furosemide 40mg Tablets MD Inderjit, [facility] Pravastatin Sodium 40mg Tablets MD Inderjit, [facility] Albuterol Sulfate (2 .5mg/3ML) 0.083% Nebulizer MD Inderjit, [facility] Immunizations Description No Information Available Vital Signs Date Vital Result Comment 12/29/2020 7:52am Height 67 inches 5'7" Weight 247.00 lb BP Systolic 138 mmHg BP Diastolic 82 mmHg Heart Rate 96 /min BMI (Body Mass Index) 38.7 kg/m2 Results Description No Information Available Procedures Date Code Description Status 12/29/2020 53774 Office/Outpatient New Low MDM 30 -44 Minutes Completed 12/29/2020 42510 Debridement 6-10 Nails Electric Completed 12/29/2020 32176 Paring/Cut Benign Lesion 2 To 4 Completed Medical Devices Description No Information Available Encounters Type Date Location Provider Dx Diagnosis Office Visit 12/29/2020 2:15p [facility] Holland Beavers DPM M79.676 Pain in unspecified toe(s) I73.89 Other specified peripheral v ascular diseases B35.1 Tinea unguium L84 Corns and callosities Assessments Date Code Description Provider 12/29/2020 M79.676 Pain in unspecified toe(s) Heladio Beavers DPM 12/29/2020 I73.89 Other specified peripheral vascu lar diseases Holland Beavers DPM 12/29/2020 B35.1 Tinea unguium Holland Beavers DPM 12/29/2020 L84 Corns and callosities Holland Beavers DPM Plan of Treatment Future Appointment(s):* 03/09/2021 2:00 pm - Holland Beavers DPM at [facility] Functional Status Description No Information Available Mental Status Description No Information Available Referrals Description No Information Available
--- OUTSIDE RECORDS SUMMARY | 2021-04-11 13:11 | CCD ---
Author Author [facility] Organization [facility] Address Unknown Phone Unavailable Care Team Providers Care Mirror Fabrication Supervisor Name Role Phone Can Ag Unavailable PROBLEMS Type Condition ICD9-CM Code [id number] Code Onset Dates Condition S tatus W/U Status Risk SNOMED Code Notes Problem BMI 39.0-39.9,adult Z68.39 Active confirmed 064210229 Problem Smoking F17.200 Active confirmed 81881486 Problem Hyperlipidemia, unspecified hyperlipidemia type E7 8.5 Active confirmed 00549931 Problem Hypertension, unspecified type I10 Active confir med 71933122 Problem Chronic diastolic heart failure I50.32 Active confi rmed 951686067 Problem Obstructive sleep apnea G47.33 Active confirmed 99410223 Problem Hypertensive heart disease with heart failure I11. 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 Active confirmed 584724228 Problem COPD exacerbation J44.1 Active confirmed 19 2094025 Problem Bilateral hearing loss, unspecified hearing loss type H91.93 Active confirmed 97917425 ALLERGIES Allergen (clinical drug ingredient) Drug/Non Drug Allergy do cumented on EMR Reaction Allergy Type Onset Date Status Bananas Unknown Non Drug Allergy 02/26/2019 Active Shellfish Shellfish Unknown Non Drug Allergy Active ENCOUNTERS from 1945 to 2021-01-20 Encounter Location Date Provider Diagnosis [facility] [address] [facility] [phone] [place] [address] Jan, Can Ag Hypertension, unspecified ty pe I10 ; Chronic obstructive pulmonary disease, unspecified COPD type J44.9 and Smoking F17.200 IMMUNIZATIONS Vaccine Route Administration Date Status Moderna [...] 1 TABLET EVERY DAY for 30 Active guaiFENesin ER 600 MG 1 tablet as needed Orally every 12 hrs for 14 day(s) Dec, Unknown Ventolin HFA 108 (90 Base) MCG/ACT 2 puffs as needed I nhalation every 6 hrs for 90 day(s) Active Nicoderm CQ 7 MG/24HR 1 patch to skin Transdermal Once a day for 30 d ays Active Pravastatin Sodium 40 MG TAKE 1 TABLET EVERY DAY for 30 Active Montelukast Sodium 10 MG 1 tablet Orally Once a day for 90 days Active Fluticasone Propionate 50 MCG/ACT 1 spray in each nost ril Nasally Once a day for 90 day(s) Active Omeprazole 40 MG TAKE 1 CAPSULE TWICE DAILY for 30 Active Lisinopril 20 MG 1 tablet Orally Once a day for 90 days Active Salicylic Acid Wart Remover 27.5 % 1 application Exter marky Once a day for 30 days Oct, Active PROCEDURES No Information RESULTS No Results REASON FOR VISIT refills, change of pharmacy MEDICAL (GENERAL) HISTORY Type Description Date Medical [...] Treatment Notes Treatm ent Clinical Notes Jan, Hypertension, unspecified type (ICD-10 - I10) Jan, Chronic obstructive pulmonar y disease, unspecified COPD type (ICD- 10 - J44.9) Jan, Smoking (ICD-10 - F17.200) PLAN OF TREATMENT Medication Medication Name Sig [...] Once a day for 30 days Oct, Fluticasone Propionate 50 MCG/ACT 1 spray in each nost ril Nasally Once a day for 90 day(s) Ventolin HFA 108 (90 Base) MCG/ACT 2 puffs as needed I nhalation every 6 hrs for 90 day(s) Nicoderm CQ 7 MG/24HR [...] Insured Coverage Start Date Coverage End Date [facility] [address] [address] [facility] [phone] BRENDA GLOVER self
--- OUTSIDE RECORDS SUMMARY | 2021-04-11 13:12 | CCD ---
Author [facility] Organization [facility] Address Unknown Phone Unavailable Care Team Providers Care Cashier Name Role Phone HIRO, BRENDA FABIAN Unavailable Unavailable REINDL, BRENDA FABIAN Unavailable Unavailable REINDL, BRENDA FABIAN Unavailable Unavailable REINDL, BRENDA FABIAN Unavailable Unavailable HIRO, BRENDA FABIAN Unavailable Unavailable HIRO, BRENDA FABIAN Unavailable Unavailable HIRO, BRENDA FABIAN Unavailable Unavailable REINMERRILL, BRENDA FABIAN Unavailable Unavailable REINMERRILL, BRENDA FABAIN Unavailable Unavailable REINMERRILL, BRENDA FABIAN Unavailable Unavailable HIRO, BRENDA FABIAN Unavailable Unavailable HIRO, BRENDA FABIAN Unavailable Unavailable HIRO, BRENDA FABIAN Unavailable Unavailable REINMERRILL, BRENDA FABIAN Unavailable Unavailable REINMERRILL, BRENDA FABIAN Unavailable Unavailable REINDL, BRENDA FABIAN Unavailable Unavailable REINDL, BRENDA FABIAN Unavailable Unavailable REINMERRILL, BRENDA FABIAN Unavailable Unavailable REINDL, BRENDA FABIAN Unavailable Unavailable REINDL, BRENDA FABIAN Unavailable Unavailable REINDL, BRENDA FABIAN Unavailable Unavailable REINDL, BRENDA FABIAN Unavailable Unavailable REINMERRILL, BRENDA FABIAN Unavailable Unavailable HIRO, BRENDA FABIAN Unavailable Unavailable REINMERRILL, BRENDA FABIAN Unavailable Unavailable REINMERRILL, BRENDA FABIAN Unavailable Unavailable REINMERRILL, BRENDA FABIAN Unavailable Unavailable HIRO, BRENDA FABIAN Unavailable Unavailable HIRO, BRENDA FABIAN Unavailable Unavailable HIRO, BRENDA FABIAN Unavailable Unavailable HIRO, BRENDA FABIAN Unavailable Unavailable HIRO, BRENDA FABIAN Unavailable Unavailable HIRO, BRENDA FABIAN Unavailable Unavailable HIRO, BRENDA FABIAN Unavailable Unavailable HIRO, BRENDA FABIAN Unavailable Unavailable HIRO, BRENDA FABIAN Unavailable Unavailable HIRO, BRENDA FABIAN Unavailable Unavailable REINMERRILL, BRENDA FABIAN Unavailable Unavailable REINDL, BRENDA FABIAN Unavailable Unavailable REINDL, BRENDA FABIAN Unavailable Unavailable HIRO, BRENDA FABIAN Unavailable Unavailable HIRO, BRENDA FABIAN Unavailable Unavailable Eric, Sourav Rauschar Unavailable Unavailable MAJAK, R POPPY DPM Unavailable Unavailable MAJAK, R POPPY DPM Unavailable Unavailable MAJAK, R POPPY DPM Unavailable Unavailable MAJAK, R POPPY DPM Unavailable Unavailable MAJAK, R POPPY DPM Unavailable Unavailable MAJAK, R POPPY DPM Unavailable Unavailable MAJAK, R POPPY DPM Unavailable Unavailable MAJAK, R POPPY DPM Unavailable Unavailable MAJAK, R POPPY DPM Unavailable Unavailable MAJAK, R POPPY DPM Unavailable Unavailable MAJAK, R POPPY DPM Unavailable Unavailable MAJAK, R POPPY DPM Unavailable Unavailable MAJAK, R POPPY DPM Unavailable Unavailable MAJAK, R POPPY DPM Unavailable Unavailable MAJAK, R POPPY DPM Unavailable Unavailable MAJAK, R POPPY DPM Unavailable Unavailable MAJAK, R POPPY DPM Unavailable Unavailable MAJAK, R POPPY DPM Unavailable Unavailable MAJAK, R POPPY DPM Unavailable Unavailable MAJAK, R POPPY DPM Unavailable Unavailable MAJAK, R POPPY DPM Unavailable Unavailable MAJAK, R POPPY DPM Unavailable Unavailable MAJAK, R POPPY DPM Unavailable Unavailable MAJAK, R POPPY DPM Unavailable Unavailable MAJAK, R POPPY DPM Unavailable Unavailable MAJAK, R POPPY DPM Unavailable Unavailable MAJAK, R POPPY DPM Unavailable Unavailable MAJAK, R POPPY DPM Unavailable Unavailable MAJAK, R POPPY DPM Unavailable Unavailable MAJAK, R POPPY DPM Unavailable Unavailable MAJAK, R POPPY DPM Unavailable Unavailable MAJAK, R POPPY DPM Unavailable Unavailable Sun, Siddharth DO Unavailable Unavailable Sun, Siddharth DO Unavailable Unavailable Sun, Siddharth DO Unavailable Unavailable Sun, Siddharth DO Unavailable Unavailable Sun, Siddharth DO Unavailable Unavailable Sun, Siddharth DO Unavailable Unavailable Sun, Siddharth DO Unavailable Unavailable Sun, Siddharth DO Unavailable Unavailable Sun, Siddharth DO Unavailable Unavailable Sun, Siddharth DO Unavailable Unavailable Sun, Siddharth DO Unavailable Unavailable Sun, Siddharth DO Unavailable Unavailable Sun, Siddharth DO Unavailable Unavailable Sun, Siddharth DO Unavailable Unavailable Sun, Siddharth DO Unavailable Unavailable Sun, Siddharth DO Unavailable Unavailable Sun, Siddharth DO Unavailable Unavailable Sun, Siddharth DO Unavailable Unavailable Sun, Siddharth DO Unavailable Unavailable Sun, Siddharth DO Unavailable Unavailable Sun, Siddharth DO Unavailable Unavailable Sun, Siddharth DO Unavailable Unavailable Sun, Siddharth DO Unavailable Unavailable Sun, Siddharth DO Unavailable Unavailable Sun, Siddharth DO Unavailable Unavailable Sun, Siddharth DO Unavailable Unavailable Sun, Siddharth DO Unavailable Unavailable Sun, Siddharth DO Unavailable Unavailable Sun, Siddharth DO Unavailable Unavailable Sun, Siddharth DO Unavailable Unavailable Sun, Siddharth DO Unavailable Unavailable Sun, Siddharth DO Unavailable Unavailable Sun, Siddharth DO Unavailable Unavailable Sun, Siddharth DO Unavailable Unavailable Sun, Siddharth DO Unavailable Unavailable Sun, Siddharth DO Unavailable Unavailable Sun, Siddharth DO Unavailable Unavailable Sun, Siddharth DO Unavailable Unavailable Sun, Siddharth DO Unavailable Unavailable Sun, Siddharth DO Unavailable Unavailable Sun, Siddharth DO Unavailable Unavailable Sun, Siddharth DO Unavailable Unavailable Sun, Siddharth DO Unavailable Unavailable Sun, Siddharth DO Unavailable Unavailable Sun, Siddharth DO Unavailable Unavailable Sun, Siddharth DO Unavailable Unavailable Sun, Siddharth DO Unavailable Unavailable Sun, Siddharth DO Unavailable Unavailable Sun, Siddharth DO Unavailable Unavailable Sun, Siddharth DO Unavailable Unavailable Sun, Siddharth DO Unavailable Unavailable Sun, Siddharth DO Unavailable Unavailable Sun, Siddharth DO Unavailable Unavailable Sun, Siddharth DO Unavailable Unavailable Sun, Siddharth DO Unavailable Unavailable Sun, Siddharth DO Unavailable Unavailable Sun, Siddharth DO Unavailable Unavailable Sun, Siddharth DO Unavailable Unavailable Sun, Siddharth DO Unavailable Unavailable Sun, Siddharth DO Unavailable Unavailable Sun, Siddharth DO Unavailable Unavailable Sun, Siddharth DO Unavailable Unavailable Sun, Siddharth DO Unavailable Unavailable Sun, Siddharth DO Unavailable Unavailable Sun, Siddharth DO Unavailable Unavailable Sun, Siddharth DO Unavailable Unavailable Houck, V MILENA PA-C Unavailable Unavailable Houck, V MILENA PA-C Unavailable Unavailable Savi, V MILENA PA-C Unavailable Unavailable Houck, V MILENA PA-C Unavailable Unavailable Savi, V MILENA PA-C Unavailable Unavailable Houck, V MILENA PA-C Unavailable Unavailable Houck, V MILENA PA-C Unavailable Unavailable Houck, V MILENA PA-C Unavailable Unavailable Houck, V MILENA PA-C Unavailable Unavailable Houck, V MILENA PA-C Unavailable Unavailable Savi, V MILENA PA-C Unavailable Unavailable Savi, V MILENA PA-C Unavailable Unavailable Houck, V MILENA PA-C Unavailable Unavailable Houck, V MILENA PA-C Unavailable Unavailable ACOSTA, M TATY PA Unavailable Unavailable ACOSTA, M TATY PA Unavailable Unavailable ACOSTA, M TATY PA Unavailable Unavailable ACOSTA, M TATY PA Unavailable Unavailable ACOSTA, M TATY PA Unavailable Unavailable ACOSTA, M TATY PA Unavailable Unavailable ACOSTA, M TATY PA Unavailable Unavailable ACOSTA, M TATY PA Unavailable Unavailable ACOSTA, M TATY PA Unavailable Unavailable ACOSTA, M TATY PA Unavailable Unavailable ACOSTA, M TATY PA Unavailable Unavailable ACOSTA, M TATY PA Unavailable Unavailable ACOSTA, M TATY PA Unavailable Unavailable ACOSTA, M TATY PA Unavailable Unavailable ACOSTA, M TATY PA Unavailable Unavailable ACOSTA, M TATY PA Unavailable Unavailable ACOSTA, M TATY PA Unavailable Unavailable ACOSTA, M TATY PA Unavailable Unavailable ACSOTA, M TATY PA Unavailable Unavailable ACOSTA, M TATY PA Unavailable Unavailable ACOSTA, M TATY PA Unavailable Unavailable ACOSTA, M TATY PA Unavailable Unavailable ACOSTA, M TATY PA Unavailable Unavailable ACOSTA, M TATY PA Unavailable Unavailable ACOSTA, M TATY PA Unavailable Unavailable ACOSTA, M TATY PA Unavailable Unavailable ACOSTA, M TATY PA Unavailable Unavailable ACOSTA, M TATY PA Unavailable Unavailable ACOSTA, M TATY PA Unavailable Unavailable ACOSTA, M TATY PA Unavailable Unavailable ACOSTA, M TATY PA Unavailable Unavailable ACOSTA, M TATY PA Unavailable Unavailable ACOSTA, M TATY PA Unavailable Unavailable ACOSTA, M TATY PA Unavailable Unavailable ACOSTA, M TATY PA Unavailable Unavailable Re-disclosure Warning The records that you are about to access may contain information from federally-assisted alcohol or drug abuse programs. If such information is present, then the following federally mandated warning applies: This information has been disclosed to you from records protected by federal confidentiality rules (42 CFR part 2). The federal rules prohibit you from making any further disclosure of this information unless further disclosure is expressly permitted by the written consent of the person to whom it pertains or as otherwise permitted by 42 CFR part 2. A general authorization for the release of medical or other information is NOT sufficient for this purpose. The Federal rules restrict any use of the information to criminally investigate or prosecute any alcohol or drug abuse patient.The records that you are about to access may contain highly sensitive health information, the redisclosure of which is protected by Article 27-F of the [place] Public Health law. If you continue you may have access to information: Regarding HIV / AIDS; Provided by facilities licensed or operated by the [place] Office of Mental Health; or Provided by the [place] [facility] Office for People With Developmental Disabilities. If such information is present, then the following [facility] mandated warning applies: This information has been disclosed to you from confidential records which are protected by state law. State law prohibits you from making any further disclosure of this information without the specific written consent of the person to whom it pertains, or as otherwise permitted by law. Any unauthorized further disclosure in violation of state law may result in a fine or residential sentence or both. A general authorization for the release of medical or other information is NOT sufficient authorization for further disc losure. Allergies and Adverse Reactions Type Description Substance Reaction Status Data Source(s ) Drug Allergy NKDA NKDA MEDENT ([facility], ) Family History Family Member Name Family Member Gender Family Member Status Date o f Status Description Data Source(s) Unknown Unknown Problem MEDENT ([facility], ) Unknown Unknown Problem MEDENT ([facility], ) Encounters Encounter Providers Location Date Indications Data Source(s ) Unknown [address] [facility] [id number] 02/20/2021 12:00:00 AM EDT eCW1 (formerly [facility]) Unknown [address] [facility] [id number] 01/18/2021 12:00:00 AM EDT eCW1 (formerly [facility]) Unknown [address] [facility] [place] [address] 01/13/2021 12:00:00 AM EDT eCW1 (formerly [facility]) Unknown [address] [facility] [place] [address] 01/11/2021 12:00:00 AM EDT eCW1 (formerly [facility]) Unknown [address] [facility] [address] 01/06/2021 12:00:00 AM EDT eCW1 (formerly [facility]) Unknown [address] [facility] [place] [address] 01/06/2021 12:00:00 AM EDT eCW1 (formerly [facility]) Outpatient Attender: POPPY HECTOR [facility] Office 12/11 02:15:00 PM EDT MEDENT ([facility] Unknown [address] [facility] [id number] 12/28/2020 12:00:00 AM EDT eCW1 ([facility]) [place] [address] [facility] [address] [place] [address] 12/05/2020 12:00:00 AM EDT eCW1 ([facility]) Outpatient Attender: TATY Shore/Sanju/Gray/Rein dl 11/23/2020 09:00:00 AM EDT MEDENT ([facility] [place] [address] [facility] [place] [address] 11/22/2020 12:00:00 AM EDT eCW1 ([facility]) [place] [address] [facility] [place] [address] 11/22/2020 12:00:00 AM EDT eCW1 ([facility]) Unknown [address] [facility] [place] [address] 11/04/2020 12:00:00 AM EDT eCW1 ([facility]) Outpatient [address] [facility] [place] [address] 10/28/2020 12:00:00 AM EDT eCW1 ([facility]) Unknown [address] [facility] [place] [address] 09/14/2020 12:00:00 AM EDT eCW1 ([facility]) Outpatient Attender: BRENDA Shore/Sanju/Gray/Rein dl 09/05/2020 03:30:00 PM EDT [facility] ([facility] [place] [address] [facility] [place] [address] 08/19/2020 12:00:00 AM EDT eCW1 ([facility]) Unknown [address] [facility] [place] [address] 06/03/2020 12:00:00 AM EST eCW1 [facility] Outpatient Attender: MILENA LEE.AZRA-PARAM 12:00:00 AM EST - 04/25/2020 02:04:46 PM EST [facility] Out[facility] [address] [facility] [place] [address] 04/20/2020 12:00:00 AM EST eCW1 (formerly [facility]) Outpatient Admitter: Quirino Clementinaeferrer: Quirino Eric 03/23/2020 12:00:00 AM EST 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 Moderna #2 dose COVID-19 (given elsewhere) SARSCOV2 VA C 100MCG/0.5ML IM 07/25/2020 02:05:00 PM EDT completed eCW1 ([facility]) Moderna #2 dose COVID-19(given elsewhere) SARSCOV2 VAC 100MCG/0.5ML IM 07/25/2020 02:05:00 PM EDT completed eCW1 ([facility]) Moderna #2 dose COVID-19(given elsewhere) SARSCOV2 VAC 100MCG/0.5ML IM 07/25/2020 02:05:00 PM EDT completed eCW1 ([facility]) Moderna #2 dose COVID-19(given elsewhere) SARSCOV2 VAC 100MCG/0.5ML IM 07/25/2020 02:05:00 PM EDT completed eCW1 ([facility]) Moderna #2 dose COVID-19(given elsewhere) SARSCOV2 VAC 100MCG/0.5ML IM 07/25/2020 02:05:00 PM EDT completed eCW1 ([facility]) Moderna #2 dose COVID-19(given elsewhere) SARSCOV2 VAC 100MCG/0.5ML IM 07/25/2020 02:05:00 PM EDT completed eCW1 ([facility]) Moderna #2 dose COVID-19(given elsewhere) SARSCOV2 VAC 100MCG/0.5ML IM 07/25/2020 02:05:00 PM EDT completed eCW1 ([facility]) Moderna #2 dose COVID-19(given elsewhere) SARSCOV2 VAC 100MCG/0.5ML IM 07/25/2020 02:05:00 PM EDT completed eCW1 ([facility]) Moderna #2 dose COVID-19(given elsewhere) SARSCOV2 VAC 100MCG/0.5ML IM 07/25/2020 02:05:00 PM EDT completed eCW1 ([facility]) Moderna #2 dose COVID-19(given elsewhere) SARSCOV2 VAC 100MCG/0.5ML IM 07/25/2020 02:05:00 PM EDT completed eCW1 ([facility]) Moderna #2 dose COVID-19(given elsewhere) SARSCOV2 VAC 100MCG/0.5ML IM 07/25/2020 02:05:00 PM EDT completed eCW1 ([facility]) Moderna #2 dose COVID-19(given elsewhere) SARSCOV2 VAC 100MCG/0.5ML IM 07/25/2020 02:05:00 PM EDT completed eCW1 ([facility]) COVID-19 VACCINE Moderna 07/25/2020 12:00:00 AM EDT completed [employer] Vaccine Series Complete: YESThis Data wa s Submitted to [facility] Via [employer]. COVID-19 VACCINE, MRNA-1273, LNP-S (MODERNA)/PF 07/25/2020 1 2:00:00 AM EDT completed [facility] Moderna #1 dose COVID-19 (given elsewhere) SARSCOV2 VA C 100MCG/0.5ML IM 06/24/2020 02:04:00 PM EST completed eCW1 ([facility]) Moderna #1 dose COVID-19(given elsewhere) SARSCOV2 VAC 100MCG/0.5ML IM 06/24/2020 02:04:00 PM EST completed eCW1 ([facility]) Moderna #1 dose COVID-19(given elsewhere) SARSCOV2 VAC 100MCG/0.5ML IM 06/24/2020 02:04:00 PM EST completed eCW1 ([facility]) Moderna #1 dose COVID-19(given elsewhere) SARSCOV2 VAC 100MCG/0.5ML IM 06/24/2020 02:04:00 PM EST completed eCW1 ([facility]) Moderna #1 dose COVID-19(given elsewhere) SARSCOV2 VAC 100MCG/0.5ML IM 06/24/2020 02:04:00 PM EST completed eCW1 ([facility]) Moderna #1 dose COVID-19(given elsewhere) SARSCOV2 VAC 100MCG/0.5ML IM 06/24/2020 02:04:00 PM EST completed eCW1 ([facility]) Moderna #1 dose COVID-19(given elsewhere) SARSCOV2 VAC 100MCG/0.5ML IM 06/24/2020 02:04:00 PM EST completed eCW1 ([facility]) Moderna #1 dose COVID-19(given elsewhere) SARSCOV2 VAC 100MCG/0.5ML IM 06/24/2020 02:04:00 PM EST completed eCW1 ([facility]) Moderna #1 dose COVID-19(given elsewhere) SARSCOV2 VAC 100MCG/0.5ML IM 06/24/2020 02:04:00 PM EST completed eCW1 ([facility]) Moderna #1 dose COVID-19(given elsewhere) SARSCOV2 VAC 100MCG/0.5ML IM 06/24/2020 02:04:00 PM EST completed eCW1 ([facility]) Moderna #1 dose COVID-19(given elsewhere) SARSCOV2 VAC 100MCG/0.5ML IM 06/24/2020 02:04:00 PM EST completed eCW1 ([facility]) Moderna #1 dose COVID-19(given elsewhere) SARSCOV2 VAC 100MCG/0.5ML IM 06/24/2020 02:04:00 PM EST completed eCW1 ([facility]) COVID-19 VACCINE Moderna 06/24/2020 12:00:00 AM EST completed [employer] Vaccine Series Complete: NOThis Data was Submitted to [facility] Via [employer]. COVID-19 VACCINE, MRNA-1273, LNP-S (MODERNA)/PF 06/24/2020 1 2:00:00 AM EST completed [facility] Medications Medication Brand Name Start Date Product Form Dose Route Admi nistrative Instructions Pharmacy Instructions Status Indications Reaction Description Data Source(s) 100 mcg/0.5 mL 03/23/2021 12:00:00 AM EST suspension 0 INJECT DIRECTED (THIRD DOSE) INJECT DIRECTED (THIRD DOSE) SOLD: 03/23/2021 [facility] 240 mcg/0.7 mL 01/31/2021 12:00:00 AM EDT syringe 0 INJECT 0.7ML INTRAMUSCULARLY INJECT 0.7ML INTRAMUSCULARLY SOLD: 01/31/2021 [facility] tiotropium 0.018 MG/ACTUAT Inhalant Powder [Spiriva] Spiriva Handihaler 01/17/2021 12:00:00 AM EDT active MEDENT ([facility]) Salicylic Acid 275 MG/ML Topical Solution Salicylic Ac id Wart Remover 27.5 % Salicylic Acid Wart Remover 27.5 % 10/30/2020 12:00:00 AM EDT 1.0 {application} active Salicylic Acid War t Remover 27.5 % [facility] Salicylic Acid 275 MG/ML Topical Solution Salicylic Ac id Wart Remover 27.5 % Salicylic Acid Wart Remover 27.5 % 10/30/2020 12:00:00 AM EDT 1.0 {application} active Salicylic Acid War t Remover 27.5 % [facility]CW[facility]) Salicylic Acid 275 MG/ML Topical Solution Salicylic Ac id Wart Remover 27.5 % Salicylic Acid Wart Remover 27.5 % 10/30/2020 12:00:00 AM EDT 1.0 {application} active Salicylic Acid War t Remover 27.5 % [facility]CW1 [facility]) Salicylic Acid 275 MG/ML Topical Solution Salicylic Ac id Wart Remover 27.5 % Salicylic Acid Wart Remover 27.5 % 10/30/2020 12:00:00 AM EDT 1.0 {application} active Salicylic Acid War t Remover 27.5 % [facility]CW1 [facility]) Salicylic Acid 275 MG/ML Topical Solution Salicylic Ac id Wart Remover 27.5 % Salicylic Acid Wart Remover 27.5 % 10/30/2020 12:00:00 AM EDT 1.0 {application} active Salicylic Acid War t Remover 27.5 % [facility]CW1 [facility]) Salicylic Acid 275 MG/ML Topical Solution Salicylic Ac id Wart Remover 27.5 % Salicylic Acid Wart Remover 27.5 % 10/30/2020 12:00:00 AM EDT 1.0 {application} active Salicylic Acid War t Remover 27.5 % [facility]CW1 [facility]) Salicylic Acid 275 MG/ML Topical Solution Salicylic Ac id Wart Remover 27.5 % Salicylic Acid Wart Remover 27.5 % 10/30/2020 12:00:00 AM EDT 1.0 {application} active Salicylic Acid War t Remover 27.5 % [facility]CW1 [facility]) Salicylic Acid 275 MG/ML Topical Solution Salicylic Ac id Wart Remover 27.5 % Salicylic Acid Wart Remover 27.5 % 10/30/2020 12:00:00 AM EDT 1.0 {application} active Salicylic Acid War t Remover 27.5 % [facility]CW1 [facility]) Salicylic Acid 275 MG/ML Topical Solution Salicylic Ac id Wart Remover 27.5 % Salicylic Acid Wart Remover 27.5 % 10/30/2020 12:00:00 AM EDT 1.0 {application} active Salicylic Acid War t Remover 27.5 % [facility]CW1 [facility]) Salicylic Acid 275 MG/ML Topical Solution Salicylic Ac id Wart Remover 27.5 % Salicylic Acid Wart Remover 27.5 % 10/30/2020 12:00:00 AM EDT 1.0 {application} active Salicylic Acid War t Remover 27.5 % [facility]CW1 ([facility]) Salicylic Acid 275 MG/ML Topical Solution Salicylic Ac id Wart Remover 27.5 % Salicylic Acid Wart Remover 27.5 % 10/30/2020 12:00:00 AM EDT 1.0 {application} active Salicylic Acid War t Remover 27.5 % [facility]CW1 [facility]) Salicylic Acid 275 MG/ML Topical Solution Salicylic Ac id Wart Remover 27.5 % Salicylic Acid Wart Remover 27.5 % 10/30/2020 12:00:00 AM EDT 1.0 {application} active Salicylic Acid War t Remover 27.5 % [facility]CW[facility]) Omeprazole 40 MG Delayed Release Oral Capsule Omeprazole 09/05/2020 12:00:00 AM EDT ORAL active MEDENT ([facility], ) Covid-19 vaccine, Unspecified 07/25/2020 12:00:00 AM EDT completed MEDENT ([facility], ) Medication administered onsite Covid-19 vaccine, Unspecified 06/24/2020 12:00:00 AM EST completed MEDENT ([facility], ) Medication administered onsite 120 ACTUAT Albuterol 0.1 MG/ACTUAT / Ipr atropium Fowler 0.02 MG/ACTUAT Metered Dose Inhaler [Combivent] Combivent Respimat 05/26/2020 12:00:00 AM EST ORAL active MEDENT ([facility], ) 200 ACTUAT Albuterol 0.09 MG/ACTUAT Metered Dose Inhal er [Ventolin] Ventolin HFA 05/26/2020 12:00:00 AM EST RESPIRATORY active Ventolin HFA MEDENT ([facility], ) Lidocaine Hydrochloride 20 MG/ML Mucous Membrane Topic al Solution Lidocaine Viscous HCL 05/17/2020 12:00:00 AM EST ORAL active MEDENT ([facility], ) 24 HR Nicotine 0.292 MG/HR Transdermal P atch [Nicoderm C-Q] Nicoderm CQ 7 MG/24HR Nicoderm CQ 7 MG/24HR 04/23/2020 12:00:00 AM EST 1.0 { patch_to_skin} active Nicoderm CQ 7 MG/24H R [facility]) fluticasone (FLONASE) 50 MCG/ACT nasal spray [id number] 04/23/2020 12:00:00 AM EST active [facility] Lisinopril 20 MG Oral Tablet lisinopril (PRINIVIL,ZEST RIL) 20 MG tablet lisinopril (PRINIVIL,ZESTRIL) 20 MG tablet 04/23/2020 12:00:00 AM EST 1 {tbl} Oral active Take 1 tablet by jordan th daily [facility] 24 HR Nicotine 0.292 MG/HR Transdermal P atch [Nicoderm C-Q] Nicoderm CQ 7 MG/24HR Nicoderm CQ 7 MG/24HR 04/23/2020 12:00:00 AM EST 1.0 { patch_to_skin} active Nicoderm CQ 7 MG/24H R [facility]) 24 HR Nicotine 0.292 MG/HR Transdermal P atch [Nicoderm C-Q] Nicoderm CQ 7 MG/24HR Nicoderm CQ 7 MG/24HR 04/23/2020 12:00:00 AM EST 1.0 { patch_to_skin} active Nicoderm CQ 7 MG/24H R [facility]CW[facility] ([facility]) 24 HR Nicotine 0.292 MG/HR Transdermal P atch [Nicoderm C-Q] Nicoderm CQ 7 MG/24HR Nicoderm CQ 7 MG/24HR 04/23/2020 12:00:00 AM EST 1.0 { patch_to_skin} active Nicoderm CQ 7 MG/24H R [facility]CW[facility]) Lisinopril 10 MG Oral Tablet lisinopril (PRINIVIL,ZEST RIL) 10 MG tablet lisinopril (PRINIVIL,ZESTRIL) 10 MG tablet 02/19/2020 12:00:00 AM EDT 10 mg Oral aborted Take 1 tablet (10 mg total) by mouth daily [facility] Insurance Providers Payer name Policy type / Coverage type Policy ID Covered republican ID Covered republican's relationship to jose Policy Jose Plan Information Medicare Advantage BS Commercial [id number] Self EXCELLUS MEDICARE BLUE PPO G [id number] Self [id number] MEDICARE BLUE PPO [id number] SP [id number] TODAYS OPTIONS [id number] SP [id number] TODAYS OPTIONS [id number] SP [id number] TODAYS OPTIONS [id number] SP [id number] WELLCARE MEDICARE [id number] Aleisha 18 [id number] WELLCARE MEDICARE [id number] [id number] WELLCARE MEDICARE O G [id number] Self [id number] INSURANCE COVID-19 [id number] [id number] INSURANCE COVID-19 COVID Aleisha C OVID MEDICAID [id number] SP [id number] Medicare Blue Ppo Commercial [id number] Self [id number] MEDICARE BLUE PPO 306 [id number] SP [id number] HUMANA GOLD [id number] SP [id number] WELLCARE [id number] SP [id number] HUMANA PPO [id number] SP [id number] WELLCARE [id number] SP [id number] ANSI-Medicare Part B [id number] ANSI-Health Maintenance Organization (HM O) [id number] MEDICARE BLUE PPO 306 [id number] SP [id number] EXCELLUS BS B [id number] S [id number] MEDICARE [id number] A TODAYS OPTIONS [id number] MEDICARE BLUE PPO 306 [id number] SP [id number] Problems, Conditions, and Diagnoses Code Display Name Description Problem Type Effective Dates Data Source(s) Z01.818 Encounter for other preprocedural examin ation Encounter for other preprocedural examin Diagnosis 04/25/2020 12:35:31 PM [facility] Z72.0 Tobacco use Tobacco use Diagnosis 04/25/2020 12:35:31 PM [facility] G47.33 Obstructive sleep apnea (adult) (pediatr ic) Obstructive sleep apnea (adult) (pediatr Diagnosis 04/25/2020 12:35:31 PM [facility] I10 Essential (primary) hypertension Essential (primary) h ypertension Diagnosis 04/25/2020 12:35:31 PM [facility] J44.9 Chronic obstructive pulmonary disease, u nspecified Chronic obstructive pulmonary disease, u Diagnosis 04/25/2020 12:35:31 PM [facility] 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 Toscano's esophagus with high grade dysp Diagnosis 04/25/2020 12:35:31 PM [facility] E78.00 Pure hypercholesterolemia, unspecified P ure hypercholesterolemia, unspecified Diagnosis 04/25/2020 12:35:31 PM [facility] I50.32 Chronic diastolic (congestive) heart surinder lure Chronic diastolic (congestive) heart surinder Diagnosis 04/25/2020 12:35:31 PM [facility] I48.91 Unspecified atrial fibrillation Unspecified atri al fibrillation Diagnosis 04/25/2020 12:35:31 PM [facility] K22.70 Toscano's esophagus without dysplasia Ba rrett's esophagus without dysplasia Diagnosis 03/23/2020 09:40:00 AM [facility] Z01.818 Preoperative clearance Preoperative clearance [id number] 04/25/2020 12:00:00 AM [facility] I11.0 [id number] Hypertensive heart disease with heart surinder lure Problem 04/23/2020 12:00:00 AM EST [facility] I50.32 [id number] Chronic diastolic heart failure Problem 04/23/2020 12:00:00 AM EST eCW1 ([facility]) Surgeries/Procedures Procedure Description Date Indications Data Source(s) Endoscopy Upper GI Biopsy 02/03/2021 12:00:00 AM EDT [facility] ([facility], ) PARING/CUTTING BENIGN HYPERKERATOTIC LESION 2-4 2020 12:00:00 AM EDT [facility] ([facility] DEBRIDEMENT NAIL ANY METHOD 6/> 12/29/2020 12:00:00 AM EDT [facility] ([facility] OFFICE OUTPATIENT NEW 30 MINUTES 12/29/2020 12:00:00 A M EDT [facility] ([facility] Endoscopy Upper GI W/ Ablation Of Tumors/Polyps/Lesions 11/29/2020 12:00:00 AM EDT [facility] ([facility]) OFFICE OUTPATIENT VISIT 25 MINUTES 11/23/2020 12:00:00 AM EDT [facility] ([facility] [place]) TOBACCO USE CESSATION INTERMEDIATE 3-10 MINUTES 2020 12:00:00 AM EDT [facility] ([facility] [place]) Endoscopy Upper GI W/ Ablation Of Tumors/Polyps/Lesions 09/16/2020 12:00:00 AM EDT [facility] ([facility]) OFFICE OUTPATIENT VISIT 25 MINUTES 09/05/2020 12:00:00 AM EDT [facility] ([facility], ) ECG ROUTINE ECG W/LEAST 12 LDS W/I&R <td>POCT AMB EKG</td><td>Routine</td><td>04/25/2020 8:49 PM EST</td><td> Atrial fibrillation</td><td> </td> 04/26/2020 01:49:00 AM EST Atrial fibrillation [facility] Atrial fibrillation SURGICAL PATHOLOGY CONSULT <td>SURGICAL PATHOLOGY CONSULT</td><td>Routine</td><td>03/23/2020 12:00 AM EST</td><td></td><td> </td> 03/23/2020 12:00:00 AM [facility] Results ID Date Data Source [id number] 02/03/2021 02:31:00 PM EDT [facility] ([facility], ) Name Value Range Interpretation Code Description Data Mami rce(s) Supporting Document(s) Surgical pathology study Laboratory test result [facility] ([facility], ) FINAL DIAGNOSIS Esophagus, biopsy: High grade dysplasia present in 3 of biopsy fragments. Background Toscano's mucosa and chronic inflammation. No evidence of intramucosal adenocarcinoma. Squamous mucosa with reactive and reparative changes. 02/07/2021 - 130 CLINICAL DIAGNOSIS Toscano's esophagus 02/06/2021 - 140 GROSS DIAGNOSIS Received in formalin labeled "biopsy for Toscano's H/O high grade dysplasia" and consists of fragments of tissue 0.3 x 0.2 x 0.1 cm. All in one. -OA 02/06/20211403 Signed KATTY ARAUJO MD 02/07/2021 1307 ID Date Data Source [id number] 09/11/2020 08:35:00 AM EDT [facility] Name Value Range Interpretation Code Description Data Mami rce(s) Supporting Document(s) SARS-CoV-2 (COVID-19) RNA [Presence] in Respiratory specimen by GERMAINE with probe detection Not Detected [facility] This lab was ordered by [facility] and reported by [employer]. ID Date Data Source [id number] 05/12/2020 12:00:00 PM EST [facility] Name Value Range Interpretation Code Description Data Mami rce(s) Supporting Document(s) SARS coronavirus 2 RNA [facility] This lab was ordered by [facility] and reported by [facility]. ID Date Data Source [id number] 03/23/2020 11:23:00 AM [facility] Surgical Pathology ReportName: ALICIA TURCIOSMRN: [id number] Number: [id number] Date: 03/23/2020 00:00Received Date: 03/23/2020 09:44Physician(s): QUIRINO AVELAR MD VYAS, SHIKHAR G,JOYpecimen(s) ReceivedA: Material received for consultation, GDLRClinical HistoryBarrett's esophagus with history of high grade dysplasia. Previous SUNYconsults [id number], [id number]. Please provide your opinion on thisesophageal biopsy with intestinal metaplasia and dysplasia (HGD). DiagnosisESOPHAGUS, BIOPSY ([id number], 03/18/20): TOSCANO ESOPHAGUS WITH HIGH GRADEDYSPLASIA. (See Microscopic Description).Electronically Signed By Domingo Reyes M.D., Attending Wpicuorvasn01/11/2020 11:23:34 Gross DescriptionReceived from [facility] in [place], [place], are 2 H and Estained slides, 1 paraffin block, labeled [id number], with the correspondingpathology report. Microscopic DescriptionI completely agree with your diagnosis of high grade dysplasia. Sectionsshow multiple fragments of reactive squamous mucosa and gastric-typeglandular mucosa with goblet cell metaplasia and marked atypia. Thelatter is characterized by marked nuclear enlargement, overlapping andloss of polarity associated with focal fwzw-jn-khhi growth andcribriforming. There is no evidence of invasive carcinoma (intramucosalor submucosal). Thank you for letting me see this case in consultation. This report may include one or more immunohistochemical stain results thatuse analyte specific reagents. All positive and negative controls havebeen reviewed by the attending pathologist and are satisfactory. The testswere developed and their performance characteristics determined by [facility] Pathology department. They have not been cleared or approved by the USFood and Drug Administration. The FDA has determined that such clearanceor approval is not necessary. Name Value Range Interpretation Code Description Data Mami rce(s) Supporting Document(s) ID Date Data Source [id number] 03/13/2020 09:30:00 AM EST [facility] Name Value Range Interpretation Code Description Data Mami rce(s) Supporting Document(s) SARS coronavirus 2 RNA [facility] This lab was ordered by [facility] and reported by [facility]. Procedure Social History Code Duration Value Status Description Data Source(s ) Smoking 02/18/2021 12:00:00 AM EDT Current Smoker completed Curre nt Smoker [facility] ([facility]) Smoking 11/07/2020 12:00:00 AM EDT Current Smoker completed Curre nt Smoker eCW1 ([facility]) Smoking 11/07/2020 12:00:00 AM EDT Current Smoker completed Curre nt Smoker eCW1 ([facility]) Smoking 11/07/2020 12:00:00 AM EDT Current Smoker completed Curre nt Smoker eCW1 ([facility]) Smoking 11/07/2020 12:00:00 AM EDT Current Smoker completed Curre nt Smoker eCW1 ([facility]) Smoking 11/07/2020 12:00:00 AM EDT Current Smoker completed Curre nt Smoker eCW1 ([facility]) Smoking 11/07/2020 12:00:00 AM EDT Current Smoker completed Curre nt Smoker eCW1 ([facility]) Smoking 11/07/2020 12:00:00 AM EDT Current Smoker completed Curre nt Smoker eCW1 ([facility]) Smoking 11/07/2020 12:00:00 AM EDT Current Smoker completed Curre nt Smoker eCW1 ([facility]) Smoking 11/07/2020 12:00:00 AM EDT Current Smoker completed Curre nt Smoker eCW1 ([facility]) Smoking 11/07/2020 12:00:00 AM EDT Current Smoker completed Curre nt Smoker eCW1 ([facility]) Smoking 11/07/2020 12:00:00 AM EDT Current Smoker completed Curre nt Smoker eCW1 ([facility]) Smoking 04/20/2020 12:00:00 AM EST Current Smoker completed Curre nt Smoker eCW1 ([facility]) Smoking 04/20/2020 12:00:00 AM EST Current Smoker completed Curre nt Smoker eCW1 ([facility]) Smoking 04/20/2020 12:00:00 AM EST Current Smoker completed Curre nt Smoker eCW1 ([facility]) Smoking 04/20/2020 12:00:00 AM EST Current Smoker completed Curre nt Smoker eCW1 ([facility]) Vital Signs ID Date Data Source UNK Name Value Range Interpretation Code Description Data Source(s) Body height 67 [in_i] 67 [in_i] [facility] ([facility] 5'7" Diastolic blood pressure 82 mm[Hg] 82 mm[Hg] [facility] ([facility] Heart rate 96 /min 96 /min [facility] ([facility] Body mass index (BMI) [Ratio] 38.7 kg/m2 38.7 k g/m2 [facility] ([facility] Body weight 247.00 [lb_av] 247.00 [lb_av] [facility] T ([facility] Systolic blood pressure 138 mm[Hg] 138 mm[Hg] M EDENT ([facility] Diastolic blood pressure 80 mm[Hg] 80 mm[Hg] [facility] ([facility] [place]) Heart rate 94 /min 94 /min [facility] ([facility]) Body height 65 [in_i] 65 [in_i] [facility] ([facility]) 5'5" Body weight 112.720 kg 112.720 kg [facility] ([facility]) Body surface area Derived from formula 2.17 m2 2.17 m2 [facility] Oxygen saturation in Arterial blood by Pulse oximetry 94 % 94 % [facility] ([facility]) Body weight 248.50 [lb_av] 248.50 [lb_av] [facility] T ([facility]) Body mass index (BMI) [Ratio] 41.3 kg/m2 41.3 k g/m2 [facility] ([facility] [place]) [place] body weight 136 [lb_av] 136 [lb_av] [facility] T ([facility] [place]) Oxygen saturation in Arterial blood by Pulse oximetry 94 % 94 % [facility] ([facility]) Body height 65 [in_i] 65 [in_i] [facility] ([facility] [place]) 5'5" Body weight 248.50 [lb_av] 248.50 [lb_av] [facility] T ([facility]) Body mass index (BMI) [Ratio] 41.3 kg/m2 41.3 k g/m2 [facility] ([facility]) [place] body weight 136 [lb_av] 136 [lb_av] [facility] T ([facility] [place]) Body weight 112.720 kg 112.720 kg [facility] ([facility]) Systolic blood pressure 140 mm[Hg] 140 mm[Hg] [facility] [place] Body surface area Derived from formula 2.17 m2 2.17 m2 [facility] ([facility]) Body weight 247.8 [lb_av] 247.8 [lb_av] eCW1 ([facility]) Body height 67 [in_i] 67 [in_i] eCW1 ([facility]) Body mass index (BMI) [Ratio] 38.81 kg/m2 38.81 kg/m2 W1 ([facility]) Heart rate 96 /min 96 /min eCW1 ([facility]) Respiratory rate 18 /min 18 /min eCW1 ([facility]) Body temperature 97.4 [degF] 97.4 [degF] eCW1 ( [facility]) Systolic blood pressure 138 mm[Hg] 138 mm[Hg] e CW1 ([facility]) Diastolic blood pressure 82 mm[Hg] 82 mm[Hg] eCW1 [facility]) Diastolic blood pressure 78 mm[Hg] 78 mm[Hg] [facility] ([facility] [place]) Body height 65 [in_i] 65 [in_i] [facility] ([facility] [place]) 5'5" Body weight 240.00 [lb_av] 240.00 [lb_av] [facility] T ([facility] [place]) Body mass index (BMI) [Ratio] 39.9 kg/m2 39.9 k g/m2 [facility] ([facility]) [place] body weight 136 [lb_av] 136 [lb_av] MED[facility] T ([facility] [place]) Body weight 108.864 kg 108.864 kg [facility] ([facility] [place]) Body surface area Derived from formula 2.14 m2 2.14 m2 [facility] ([facility]) Systolic blood pressure 143 mm[Hg] 143 mm[Hg] M [facility]ENT ([facility] [place]) Body height 65 [in_i] 65 [in_i] [facility] ([facility]) 5'5" Body weight 240.00 [lb_av] 240.00 [lb_av] [facility] T ([facility]) Body mass index (BMI) [Ratio] 39.9 kg/m2 39.9 k g/m2 [facility] ([facility]) [place] body weight 136 [lb_av] 136 [lb_av] [facility] T ([facility] Body weight 108.864 kg 108.864 kg [facility] ([facility] [place]) Body surface area Derived from formula 2.14 m2 2.14 m2 [facility] ([facility]) Systolic blood pressure 140 mm[Hg] 140 mm[Hg] [facility] Diastolic blood pressure 68 mm[Hg] 68 mm[Hg] [facility] Heart rate 76 /min 76 /min [facility] Body height 167.6 cm 167.6 cm [facility] Body weight 109.952 kg 109.952 kg [facility] Body mass index (BMI) [Ratio] 39.12 kg/m2 39.12 kg/m2 [facility] Oxygen saturation in Arterial blood by Pulse oximetry 93 % 93 % [facility] Body weight 242 [lb_av] 242 [lb_av] eCW1 ([facility]) Body height 67 [in_i] 67 [in_i] eCW1 ([facility]) Body mass index (BMI) [Ratio] 37.90 kg/m2 37.90 kg/m2 eCW1 [facility] Heart rate 89 /min 89 /min eCW1 ([facility]) Respiratory rate 17 /min 17 /min eCW1 ([facility]) Body temperature 97.6 [degF] 97.6 [degF] eCW1 ( [facility] Systolic blood pressure 128 mm[Hg] 128 mm[Hg] e CW1 ([facility]) Diastolic blood pressure 68 mm[Hg] 68 mm[Hg] eCW1 [facility] Body weight 242.00 [lb_av] 242.00 [lb_av] [facility] T ([facility] ) Systolic blood pressure 132 mm[Hg] 132 mm[Hg] M [facility]ENT ([facility] ) Diastolic blood pressure 69 mm[Hg] 69 mm[Hg] [facility] ([facility] [place]) Body height 65 [in_i] 65 [in_i] [facility] ([facility] [place]) 5'5" [place] body weight 136 [lb_av] 136 [lb_av] MED[facility] T ([facility] [place]) Body weight 109.771 kg 109.771 kg [facility] ([facility]) Body mass index (BMI) [Ratio] 40.3 kg/m2 40.3 k g/m2 [facility] ([facility]) Patient Treatment Plan of Care Planned Activity Planned Date Details Description Data Source (s) Salicylic Acid 275 MG/ML Topical Solution 10/30/2020 12:00:00 AM ED T eCW1 ([facility]) Salicylic Acid 275 MG/ML Topical Solution 10/30/2020 12:00:00 AM ED T eCW1 ([facility]) Salicylic Acid 275 MG/ML Topical Solution 10/30/2020 12:00:00 AM ED T eCW1 ([facility]) Salicylic Acid 275 MG/ML Topical Solution 10/30/2020 12:00:00 AM ED T eCW1 ([facility]) Salicylic Acid 275 MG/ML Topical Solution 10/30/2020 12:00:00 AM ED T eCW1 ([facility]) Salicylic Acid 275 MG/ML Topical Solution 10/30/2020 12:00:00 AM ED T eCW1 ([facility]) Salicylic Acid 275 MG/ML Topical Solution 10/30/2020 12:00:00 AM ED T eCW1 ([facility]) Salicylic Acid 275 MG/ML Topical Solution 10/30/2020 12:00:00 AM ED T eCW1 ([facility]) Salicylic Acid 275 MG/ML Topical Solution 10/30/2020 12:00:00 AM ED T eCW1 ([facility]) Salicylic Acid 275 MG/ML Topical Solution 10/30/2020 12:00:00 AM ED T eCW1 ([facility]) Salicylic Acid 275 MG/ML Topical Solution 10/30/2020 12:00:00 AM ED T eCW1 ([facility]) Salicylic Acid 275 MG/ML Topical Solution 10/30/2020 12:00:00 AM ED T eCW1 ([facility]) 24 HR Nicotine 0.292 MG/HR Transdermal Patch [Nicoderm C-Q] 04/23/2020 12:00:00 AM EST eCW1 ([facility]) 24 HR Nicotine 0.292 MG/HR Transdermal Patch [Nicoderm C-Q] 04/23/2020 12:00:00 AM EST eCW1 ([facility]) 24 HR Nicotine 0.292 MG/HR Transdermal Patch [Nicoderm C-Q] 04/23/2020 12:00:00 AM EST eCW1 ([facility]) 24 HR Nicotine 0.292 MG/HR Transdermal Patch [Nicoderm C-Q] 04/23/2020 12:00:00 AM EST eCW1 ([facility]) Lisinopril 20 MG Oral Tablet 04/23/2020 12:00:00 AM EST [facility] fluticasone (FLONASE) 50 MCG/ACT nasal spray 04/23/2020 12:00:00 AM EST [facility] Lisinopril 10 MG Oral Tablet 02/19/2020 12:00:00 AM EDT [facility]
[2021-04-11] MEDS ORDERED: propofoL 200 MG/20 ML VIAL As Ordered ONE ×2 (14:28→15:32)
[2021-04-11] MEDS ORDERED: LIDOCAINE 2% 100MG/5ML SDV (FOR ANES.) As Ordered ONE (14:28)
[2021-04-11] MEDS ORDERED: ACETYLCYSTEINE 20% 30 ML VIAL As Ordered ONE (14:33)
--- NOTE | 2021-04-11 15:04 | ROOR ---
Patient Name: Catarino Turcios Procedure Date: 04/11/2021 2:25 PM Date of : 1945 Age: 76 Room: [facility] Gender: Male Note Status: Finalized Procedure: Upper GI endoscopy Indications: For therapy of Toscano's esophagus, Toscano's high grade dysplasia Providers: Catarino Heaton MD Referring MD: [facility], Admin. Requesting Provider: Medicines: Monitored Anesthesia Care Complications: No immediate complications. Procedure: Pre-Anesthesia Assessment: - The heart rate, respiratory rate, oxygen saturations, blood pressure, adequacy of pulmonary ventilation, and response to care were monitored throughout the procedure. The Endoscope was introduced through the mouth, and advanced to the second part of duodenum. The upper GI endoscopy was accomplished without difficulty. The patient tolerated the procedure well. Findings: The Z-line was variable and was found 39 cm from the incisors. The esophagus and gastroesophageal junction were examined with white light and narrow band imaging (NBI). Sequelae of prior Toscano's treatment were not seen. [place]-colored mucosa was present, consistent with residual Toscano's esophagus. Mucosal findings on today's exam: one tongue of salmon-colored mucosa was present from 39 to 40 cm and the Z-line was irregular at 39 cm from the incisors. The maximum longitudinal extent of the Toscano's segment on today's exam was 1 cm in length. Focal radiofrequency ablation of Toscano's esophagus was performed. With the endoscope in place, the position and extent of the Toscano's mucosa and the anatomic landmarks were noted. Endoscopic visualization identified an ablation site including the entire visible Tocsano's segment. The Toscano's mucosa was irrigated with N-acetylcysteine (Mucomyst) 1% mixed with water. The endoscope was then removed from the patient. The Barrx-60 radiofrequency ablation catheter was attached to the tip of the endoscope. The endoscope with the attached radiofrequency ablation catheter was then passed transorally under direct vision into the esophagus and advanced to the areas of Toscano's mucosa. The radiofrequency ablation catheter was placed in contact with the surface of the Toscano's mucosa under direct visualization and energy was applied twice at 12 J/cm2. The ablation zone was cleaned of coagulative debris. A second round of ablation was then performed. Energy was applied twice at 12 J/cm2 to retreat the areas of Toscano's epithelium that had been treated with the first series of ablation. The areas of the esophagus where Toscano's mucosa had been ablated were examined. Areas of visible Toscano's esophagus were completely ablated. Evidence of a fundoplication was found in the cardia. The exam of the stomach was otherwise normal. The examined duodenum was normal. Impression: - Z-line variable, 39 cm from the incisors. - Examination of previous Toscano's treatment: [place]-colored mucosa was present, consistent with residual Toscano's esophagus. Treated with radiofrequency ablation. - A fundoplication was found. - Normal examined duodenum. - No specimens collected. Recommendation: - Repeat upper endoscopy in 2 months for surveillance of Toscano's esophagus. Procedure Code(s): --- Professional --- 81893, Esophagogastroduodenoscopy, flexible, transoral; with ablation of tumor(s), polyp(s), or other lesion(s) (includes pre- and post-dilation and guide wire passage, when performed) Diagnosis Code(s): --- Professional --- K22.8, Other specified diseases of esophagus Z98.890, Other specified postprocedural states K22.711, Toscano's esophagus with high grade dysplasia CPT copyright 2019 [employer]. All rights reserved. The codes documented in this report are preliminary and upon efficiency analyst review may be revised to meet current compliance requirements. Catarino Heaton MD Catarino Heaton MD 04/11/2021 3:04:14 PM Electronically signed by Catarino Heaton MD Number of Addenda: 0 Note Initiated On: 04/11/2021 2:25 PM Estimated Blood Loss: Estimated blood loss: none.
[2021-04-11 15:35] VITALS: BP 185/76
== END 2021-04-11 15:46 | disposition home or self-care (01) ==
LOC: M OPP 13:06
PROVIDERS: ATTEND Internal Medicine Gastroenterology
DX: K22.711 Barrett's esophagus with high grade dysplasia (principal); K22.89 Other specified disease of esophagus; I10 Essential (primary) hypertension; R00.8 Other abnormalities of heart beat; G47.30 Sleep apnea, unspecified; R60.9 Edema, unspecified; J44.9 Chronic obstructive pulmonary disease, unspecified; Z91.013 Allergy to seafood; Z91.018 Allergy to other foods; Z79.899 Other long term (current) drug therapy

== ENCOUNTER → 2021-05-01 | Outpatient (REF) | payer OTHER ==
[~2021-05-01] MED LIST changes: -NS 1,000 ML IV ONE
[2021-05-02 11:00] LABS: APPEARANCE, URINE TURBID (CLEAR); BACTERIA, URINE AUTO NEGATIVE (NEGATIVE); BILIRUBIN, URINE AUTO NEGATIVE (NEGATIVE); BLOOD, URINE BLOOD 2+ (NEGATIVE); COLOR, URINE YELLOW (YELLOW); GLUCOSE, URINE (UA) AUTO NEGATIVE (NEGATIVE); KETONE, URINE AUTO NEGATIVE (NEGATIVE); LEUKOCYTE ESTERASE, URINE AUTO 3+ (NEGATIVE); NITRITE, URINE AUTO POSITIVE (NEGATIVE); PROTEIN, URINE AUTO 2+ mg/dL (NEGATIVE); RBC, URINE AUTO 22 /HPF (0-3); RENAL EPITHELIAL CELLS 2 /HPF; SPECIFIC GRAVITY URINE AUTO 1.014 (1.002-1.035); SQUAMOUS EPITHELIAL CELL UR AU 0 /HPF (0-6); UROBILINOGEN, URINE AUTO 0.2 mg/dL (0.0-2.0); WBC, URINE AUTO TNTC /HPF (0-3)
== END ==
LOC: M SFHCPLAZ 10:27
PROVIDERS: ATTEND Student in an Organized Health Care Education/Training Program
DX: R30.0 Dysuria (principal)

== ENCOUNTER → 2021-05-15 | Outpatient (CLI) | payer MEDICARE, OTHER ==
--- NOTE | 2021-05-15 13:11 | REP ---
INDICATION: DYSURIA. COMPARISON: None. TECHNIQUE: Real-time sonographic evaluation of the kidneys with Doppler FINDINGS: Multiple ultrasonographic images of the right kidney show the right kidney to measure 9.2 x 4.9 x 5.6 cm. The renal cortical echotexture is unremarkable. There are no solid masses. Arising from the upper pole there is an 8.9 x 6.4 x 6.2 cm sized anechoic structure which exhibits posterior wall enhancement and increased through transmission. There is good corticomedullary differentiation. There is no hydronephrosis. There are no perinephric fluid collections. Multiple ultrasonographic images of the left kidney show the left kidney to measure 12.5 x 5.5 x 6.6 cm. The renal cortical echotexture is unremarkable. There are no solid masses. Arising from the inferior pole there is a 1.6 x 1.4 x 1.2 cm sized anechoic structure which exhibits posterior wall enhancement and increased through transmission. There is good corticomedullary differentiation. There is no hydronephrosis. There are no perinephric fluid collections. IMPRESSION: Simple appearing bilateral renal cysts. <Electronically signed by Elie Carpenter > 05/15/21 [id number]
== END ==
LOC: M RAD 12:11
PROVIDERS: ATTEND Student in an Organized Health Care Education/Training Program
DX: R30.0 Dysuria (principal); N28.1 Cyst of kidney, acquired

== ENCOUNTER → 2021-06-07 | Outpatient (CLI) | payer MEDICARE ==
[~2021-06-07] MED LIST changes: -MONT10TA10 PO; +MONT10TA97 PO
== END ==
LOC: M LABSMTC 10:36
PROVIDERS: ATTEND Anesthesiology
DX: Z01.812 Encounter for preprocedural laboratory examination (principal); Z11.52 Encounter for screening for COVID-19

== ENCOUNTER 2021-06-12 11:55 | Day surgery (SDC) | payer MEDICARE ==
[~2021-06-12] VITALS: Ht 167.6 cm; Wt 114.3 kg
[~2021-06-12 11:55] MED LIST changes: +NS 1,000 ML IV ONE
[2021-06-12 14:55] VITALS: BP 129/84
[2021-06-12] MEDS ORDERED: LIDOCAINE VISCOUS 2% SOLN 15ML UDC As Ordered ONE (15:05)
[2021-06-12] MEDS ORDERED: ESMOLOL INJ 100MG/10ML VIAL As Ordered ONE (15:05)
[2021-06-12] MEDS ORDERED: propofoL 200 MG/20 ML VIAL As Ordered ONE (15:05)
== END 2021-06-12 14:57 | disposition home or self-care (01) ==
LOC: M OPP 11:55
PROVIDERS: ATTEND Internal Medicine Gastroenterology
DX: K22.89 Other specified disease of esophagus (principal); K22.719 Barrett's esophagus with dysplasia, unspecified; Z98.890 Other specified postprocedural states; Z09 Encounter for follow-up examination after completed treatment for conditions other than malignant neoplasm; Z79.899 Other long term (current) drug therapy; Z91.013 Allergy to seafood; Z91.018 Allergy to other foods; F17.210 Nicotine dependence, cigarettes, uncomplicated

== ENCOUNTER 2021-08-01 17:17 | Inpatient (IN) | payer MEDICARE ==
[~2021-08-01] VITALS: Ht 167.6 cm; Wt 112.5 kg
[~2021-08-01 17:17] MED LIST changes: -NS 1,000 ML IV ONE
[2021-08-01] MEDS ORDERED: FAMOTIDINE 20MG/2ML VIAL IVP ONE (18:20)
[2021-08-01] MEDS ORDERED: ALBUTEROL SULFATE 2.5 MG/0.5 ML INH NEB SOLN NEB ONE (18:20)
[2021-08-01 19:00] LABS: BASO % 0.7 % (0.0-1.0); EOS # 0.1 10^3/uL (0.0-0.5); EOS % 0.9 % (0.0-3.0); HEMATOCRIT 47.3 % (42.0-52.0); HEMOGLOBIN 15.3 g/dl (13.5-17.5); LYMPH # 0.6 10^3/uL (1.5-5.0); LYMPH % 11.4 % (24.0-44.0); MEAN CORPUSCULAR HEMOGLOBIN 32.3 pg (27.0-33.0); MEAN CORPUSCULAR HGB CONC 32.3 g/dl (32.0-36.5); MONO # 0.5 10^3/uL (0.0-0.8); MONO % 9.1 % (2.0-8.0); NEUTROPHILS # 4.3 10^3/uL (1.5-8.5); NEUTROPHILS % 77.5 % (36.0-66.0); PLATELET COUNT, AUTOMATED 217 10^3/uL (150-450); RED BLOOD COUNT 4.73 10^6/uL (4.30-6.10); WHITE BLOOD COUNT 5.6 10^3/uL (4.0-10.0)
[2021-08-01] MEDS: NS 1,000 ML IV SCH (19:00)
[2021-08-01 19:25] LABS: INR 0.96; PROTHROMBIN TIME 13.2 SECONDS (12.7-14.5)
[2021-08-01] MEDS: GASTROGRAFIN SOLUTION 30ML PO SCH ×2 (19:28→20:06)
[2021-08-01 19:33] LABS: ALBUMIN 3.6 GM/DL (3.2-5.2); ALT/SGPT 19 U/L (12-78); BILIRUBIN,DIRECT 0.1 MG/DL (0.0-0.2); BILIRUBIN,TOTAL 0.4 MG/DL (0.2-1.0); BLOOD UREA NITROGEN 11 MG/DL (7-18); CALCIUM LEVEL 8.5 MG/DL (8.8-10.2); CARBON DIOXIDE LEVEL 34 MEQ/L (21-32); CHLORIDE LEVEL 103 MEQ/L (98-107); CREATININE FOR GFR 0.96 MG/DL (0.70-1.30); GLOMERULAR FILTRATION RATE > 60.0 (>42); GLUCOSE, FASTING 87 MG/DL (70-100); LIPASE 49 U/L (73-393); POTASSIUM SERUM 4.6 MEQ/L (3.5-5.1); RSV AMPLIFICATION NEGATIVE (NEGATIVE); SODIUM LEVEL 139 MEQ/L (136-145); TOTAL PROTEIN 6.9 GM/DL (6.4-8.2)
[2021-08-01 19:35] LABS: CK-MB VALUE MASS 5.1 NG/ML (<3.6); MB/CK RELATIVE INDEX 2.25 (< OR =4)
[2021-08-01] MEDS ORDERED: ISOVUE-370 76% 100ML VIAL As Ordered ONE (20:53)
[2021-08-01] MEDS ORDERED: IPRATROPIUM 0.5MG/ALBUTEROL 2.5MG INH SOL UD 3ML (DUONEB) NEB ONE (21:35)
[2021-08-01] MEDS ORDERED: HYDROMORPHONE HCL 0.5 MG/ 0.5 ML SYRINGE (J1170 PER 1) IV PRN (23:40)
[2021-08-01] MEDS ORDERED: BISACODYL 10 MG SUPP PR ONE (23:40)
[2021-08-01] MEDS ORDERED: ALBUTEROL 90 MCG/ACT 8GM HFA INHALER INH PRN (23:40)
[2021-08-01] MEDS ORDERED: NS 1,000 ML IV SCH (23:40)
[2021-08-02] MEDS ORDERED: ALBU8.5H INH (00:28)
[2021-08-02] MEDS ORDERED: HOME MED LIST COMPLETE! XX SCH (00:30)
[2021-08-02 01:45] VITALS: BP 152/80
[2021-08-02] MEDS: IPRATROPIUM 0.5MG/ALBUTEROL 2.5MG INH SOL UD 3ML (DUONEB) NEB SCH ×5 (02:00→17:43)
[2021-08-02] MEDS ORDERED: COMBIVENT RESPIMAT 100-20MCG INHALER 4GM INH SCH (02:00)
[2021-08-02] MEDS ORDERED: ALBUTEROL 90 MCG/ACT 8GM HFA INHALER INH PRN (02:15)
[2021-08-02] MEDS ORDERED: IPRATROPIUM 0.5MG/ALBUTEROL 2.5MG INH SOL UD 3ML (DUONEB) NEB PRN (02:15)
[2021-08-02] MEDS ORDERED: methylPREDNISolone 125MG 2ML VIAL IV ONE (03:15)
[2021-08-02 06:00] VITALS: BP 158/91
[2021-08-02] MEDS ORDERED: HEPARIN SOD (PORCINE) 5000UNITS/ML 1ML VIAL/SYRINGE SC SCH (06:00)
[2021-08-02 06:47] LABS: BLOOD UREA NITROGEN 9 MG/DL (7-18); CALCIUM LEVEL 8.8 MG/DL (8.8-10.2); CARBON DIOXIDE LEVEL 31 MEQ/L (21-32); CHLORIDE LEVEL 103 MEQ/L (98-107); GLOMERULAR FILTRATION RATE > 60.0 (>42); GLUCOSE, FASTING 85 MG/DL (70-100); MAGNESIUM LEVEL 2.2 MG/DL (1.8-2.4); POTASSIUM SERUM 5.1 MEQ/L (3.5-5.1); SODIUM LEVEL 140 MEQ/L (136-145)
[2021-08-02] MEDS: ADVAIR HFA 230/21MCG INHALER INH SCH ×2 (07:40→17:43)
[2021-08-02] MEDS: NS 1,000 ML IV SCH (08:13)
[2021-08-02] MEDS: NICOTINE 21MG/24HR 1 EA TRANSDERMAL TD SCH (08:18)
[2021-08-02] MEDS: FLUTICASONE PROP 0.05% NASAL SPRAY 16 GM (FLONASE) NARES SCH (08:30)
[2021-08-02] MEDS ORDERED: FUROSEMIDE 20MG/2ML VIAL (J1940) IV ONE (08:30)
[2021-08-02] MEDS ORDERED: ACETAMINOPHEN TAB 650MG DOSE (2X325MG) PO ONE (08:30)
[2021-08-02] MEDS: methylPREDNISolone 40MG 1ML VIAL IV SCH ×3 (09:27→20:57)
[2021-08-02] MEDS: ENOXAPARIN 120MG/0.8ML SYRINGE (J1650 PER 10MG) SC SCH (11:53)
[2021-08-02] MEDS: AZITHROMYCIN 250MG TABLET PO SCH (11:53)
[2021-08-02 13:11] LABS: ABG BASE EXCESS 0.8 (-2.0-2.0); ABG HCO3 27.7 MEQ/L (22.0-26.0); ABG O2 SATURATION 92.3 % (95.0-99.0); ABG PARTIAL PRESSURE CO2 52.8 mmHg (35.0-45.0); ABG PARTIAL PRESSURE O2 62.3 mmHg (75.0-100.0); ABG TOTAL CO2 29.3 MEQ/L (23.0-31.0); ABG pH (ARTERIAL) 7.338 UNITS (7.350-7.450)
[2021-08-02] MEDS ORDERED: ACETAMINOPHEN 500 MG TAB PO ONE (14:25)
[2021-08-02] MEDS: guaiFENesin DM LIQ 10ML UD PO PRN (15:08)
[2021-08-02 19:15] VITALS: BP 146/96
[2021-08-02] MEDS ORDERED: TIOTROPIUM INHALER/CAPSULE (SPIRIVA) INH SCH (20:00)
[2021-08-02] MEDS ORDERED: HYDROMORPHONE HCL 0.5 MG/ 0.5 ML SYRINGE (J1170 PER 1) IV PRN (20:05)
[2021-08-02] MEDS ORDERED: BENZONATATE 100MG CAPSULE PO PRN (20:10)
[2021-08-02] MEDS ORDERED: ISOVUE-370 76% 100ML VIAL As Ordered ONE (20:52)
[2021-08-03] MEDS: ENOXAPARIN 120MG/0.8ML SYRINGE (J1650 PER 10MG) SC SCH (00:16)
[2021-08-03] MEDS: IPRATROPIUM 0.5MG/ALBUTEROL 2.5MG INH SOL UD 3ML (DUONEB) NEB SCH ×4 (00:17→19:17)
[2021-08-03] MEDS: methylPREDNISolone 40MG 1ML VIAL IV SCH ×4 (04:18→21:18)
[2021-08-03 06:00] VITALS: BP 136/97
[2021-08-03 06:13] LABS: BASO % 0.1 % (0.0-1.0); HEMATOCRIT 47.4 % (42.0-52.0); HEMOGLOBIN 15.5 g/dl (13.5-17.5); LYMPH # 0.4 10^3/uL (1.5-5.0); LYMPH % 5.1 % (24.0-44.0); MEAN CORPUSCULAR HEMOGLOBIN 32.8 pg (27.0-33.0); MEAN CORPUSCULAR HGB CONC 32.7 g/dl (32.0-36.5); MEAN CORPUSCULAR VOLUME 100.2 fl (80.0-96.0); MONO # 0.4 10^3/uL (0.0-0.8); MONO % 4.5 % (2.0-8.0); NEUTROPHILS # 7.6 10^3/uL (1.5-8.5); NEUTROPHILS % 89.7 % (36.0-66.0); PLATELET COUNT, AUTOMATED 218 10^3/uL (150-450); RED BLOOD COUNT 4.73 10^6/uL (4.30-6.10); WHITE BLOOD COUNT 8.5 10^3/uL (4.0-10.0)
[2021-08-03 06:26] LABS: BLOOD UREA NITROGEN 16 MG/DL (7-18); CALCIUM LEVEL 9.1 MG/DL (8.8-10.2); CARBON DIOXIDE LEVEL 33 MEQ/L (21-32); CHLORIDE LEVEL 99 MEQ/L (98-107); CREATININE FOR GFR 1.02 MG/DL (0.70-1.30); GLOMERULAR FILTRATION RATE > 60.0 (>42); GLUCOSE, FASTING 113 MG/DL (70-100); MAGNESIUM LEVEL 2.2 MG/DL (1.8-2.4); PHOSPHORUS LEVEL 3.7 MG/DL (2.5-4.9); POTASSIUM SERUM 4.8 MEQ/L (3.5-5.1); SODIUM LEVEL 136 MEQ/L (136-145)
[2021-08-03] MEDS: ADVAIR HFA 230/21MCG INHALER INH SCH ×2 (07:46→19:27)
[2021-08-03 08:00] VITALS: BP 162/94
[2021-08-03] MEDS: NICOTINE 21MG/24HR 1 EA TRANSDERMAL TD SCH (08:51)
[2021-08-03] MEDS: AZITHROMYCIN 250MG TABLET PO SCH (09:37)
[2021-08-03] MEDS: FUROSEMIDE 40MG/4ML VIAL (J1940) IV SCH (09:38)
[2021-08-03] MEDS: FLUTICASONE PROP 0.05% NASAL SPRAY 16 GM (FLONASE) NARES SCH (09:39)
[2021-08-03] MEDS: MIRALAX *UNIT DOSE* 17GM PACKET PO SCH (10:36)
[2021-08-03 14:00] VITALS: BP 160/80
[2021-08-03] MEDS: ACETAMINOPHEN 500 MG TAB PO PRN (19:02)
[2021-08-03 19:12] VITALS: BP 162/114
[2021-08-03 19:45] VITALS: BP 162/88
[2021-08-03] MEDS ORDERED: TIOTROPIUM INHALER/CAPSULE (SPIRIVA) INH STA (20:47)
[2021-08-03] MEDS: guaiFENesin ER 600 MG TAB PO PRN (21:18)
[2021-08-03] MEDS: guaiFENesin DM LIQ 10ML UD PO PRN (21:18)
[2021-08-03] MEDS: OMEPRAZOLE 20MG CAP PO SCH (21:18)
[2021-08-03] MEDS: FIBER-CON 625 MG TAB PO SCH (22:34)
[2021-08-03] MEDS: IPRATROPIUM 0.02% SOLN 0.5MG 2.5ML NEB INH SCH (23:13)
[2021-08-03] MEDS: LEVALBUTEROL 1.25 MG/0.5 ML CONCENTRATE NEB INH SCH (23:13)
[2021-08-04] MEDS ORDERED: IPRATROPIUM 0.02% SOLN 0.5MG 2.5ML NEB INH SCH (02:00)
[2021-08-04] MEDS ORDERED: LEVALBUTEROL 1.25 MG/0.5 ML CONCENTRATE NEB INH SCH (02:00)
[2021-08-04] MEDS: LEVALBUTEROL 1.25 MG/0.5 ML CONCENTRATE NEB INH SCH ×5 (04:13→19:24)
[2021-08-04] MEDS: IPRATROPIUM 0.02% SOLN 0.5MG 2.5ML NEB INH SCH ×5 (04:13→19:24)
[2021-08-04] MEDS: methylPREDNISolone 40MG 1ML VIAL IV SCH ×4 (04:57→21:45)
[2021-08-04 05:59] LABS: HEMATOCRIT 43.7 % (42.0-52.0); HEMOGLOBIN 14.4 g/dl (13.5-17.5); MEAN CORPUSCULAR HEMOGLOBIN 32.6 pg (27.0-33.0); MEAN CORPUSCULAR VOLUME 98.9 fl (80.0-96.0); PLATELET COUNT, AUTOMATED 205 10^3/uL (150-450); RED BLOOD COUNT 4.42 10^6/uL (4.30-6.10); WHITE BLOOD COUNT 9.8 10^3/uL (4.0-10.0)
[2021-08-04 06:23] LABS: BLOOD UREA NITROGEN 25 MG/DL (7-18); CALCIUM LEVEL 8.7 MG/DL (8.8-10.2); CARBON DIOXIDE LEVEL 37 MEQ/L (21-32); CHLORIDE LEVEL 98 MEQ/L (98-107); CREATININE FOR GFR 1.06 MG/DL (0.70-1.30); GLOMERULAR FILTRATION RATE > 60.0 (>42); GLUCOSE, FASTING 122 MG/DL (70-100); MAGNESIUM LEVEL 2.4 MG/DL (1.8-2.4); PHOSPHORUS LEVEL 4.4 MG/DL (2.5-4.9); POTASSIUM SERUM 4.5 MEQ/L (3.5-5.1); SODIUM LEVEL 137 MEQ/L (136-145)
[2021-08-04] MEDS: ADVAIR HFA 230/21MCG INHALER INH SCH ×2 (07:40→19:24)
[2021-08-04] MEDS ORDERED: TIOTROPIUM INHALER/CAPSULE (SPIRIVA) INH SCH (08:00)
[2021-08-04] MEDS: NICOTINE 21MG/24HR 1 EA TRANSDERMAL TD SCH (08:50)
[2021-08-04] MEDS: ENOXAPARIN 40MG/0.4ML SYRINGE (J1650 PER 10MG) SC SCH (08:57)
[2021-08-04] MEDS: MIRALAX *UNIT DOSE* 17GM PACKET PO SCH (08:57)
[2021-08-04] MEDS: MONTELUKAST 10 MG TAB PO SCH (08:58)
[2021-08-04] MEDS: FUROSEMIDE 40MG/4ML VIAL (J1940) IV SCH (08:58)
[2021-08-04] MEDS: OMEPRAZOLE 20MG CAP PO SCH ×2 (08:58→21:45)
[2021-08-04] MEDS: AZITHROMYCIN 250MG TABLET PO SCH (08:59)
[2021-08-04] MEDS: FLUTICASONE PROP 0.05% NASAL SPRAY 16 GM (FLONASE) NARES SCH (08:59)
[2021-08-04] MEDS: PRAVASTATIN 20 MG TAB PO SCH (08:59)
[2021-08-04] MEDS ORDERED: MOM 30ML SUSPENSION UDC PO ONE (12:30)
[2021-08-04 14:00] VITALS: BP 126/94
[2021-08-04 21:18] VITALS: BP 136/78
[2021-08-04] MEDS: FIBER-CON 625 MG TAB PO SCH (21:44)
[2021-08-04] MEDS: guaiFENesin DM LIQ 10ML UD PO PRN (21:45)
[2021-08-04] MEDS: guaiFENesin ER 600 MG TAB PO PRN (21:45)
[2021-08-05] MEDS: LEVALBUTEROL 1.25 MG/0.5 ML CONCENTRATE NEB INH SCH ×6 (00:14→20:00)
[2021-08-05] MEDS: IPRATROPIUM 0.02% SOLN 0.5MG 2.5ML NEB INH SCH ×6 (00:14→20:00)
[2021-08-05] MEDS: methylPREDNISolone 40MG 1ML VIAL IV SCH ×4 (04:22→21:03)
[2021-08-05 05:36] VITALS: BP 141/89
[2021-08-05 06:13] LABS: HEMATOCRIT 44.3 % (42.0-52.0); HEMOGLOBIN 14.6 g/dl (13.5-17.5); MEAN CORPUSCULAR HEMOGLOBIN 32.3 pg (27.0-33.0); PLATELET COUNT, AUTOMATED 193 10^3/uL (150-450); RED BLOOD COUNT 4.52 10^6/uL (4.30-6.10); WHITE BLOOD COUNT 8.4 10^3/uL (4.0-10.0)
[2021-08-05 06:35] LABS: BLOOD UREA NITROGEN 27 MG/DL (7-18); CALCIUM LEVEL 8.8 MG/DL (8.8-10.2); CARBON DIOXIDE LEVEL 39 MEQ/L (21-32); CHLORIDE LEVEL 96 MEQ/L (98-107); CREATININE FOR GFR 1.06 MG/DL (0.70-1.30); GLOMERULAR FILTRATION RATE > 60.0 (>42); GLUCOSE, FASTING 131 MG/DL (70-100); MAGNESIUM LEVEL 2.4 MG/DL (1.8-2.4); PHOSPHORUS LEVEL 4.1 MG/DL (2.5-4.9); SODIUM LEVEL 137 MEQ/L (136-145)
[2021-08-05] MEDS: ADVAIR HFA 230/21MCG INHALER INH SCH ×2 (07:20→19:43)
[2021-08-05 08:20] VITALS: BP 126/75
[2021-08-05] MEDS: MIRALAX *UNIT DOSE* 17GM PACKET PO SCH (09:24)
[2021-08-05] MEDS: AZITHROMYCIN 250MG TABLET PO SCH (09:25)
[2021-08-05] MEDS: MONTELUKAST 10 MG TAB PO SCH (09:25)
[2021-08-05] MEDS: PRAVASTATIN 20 MG TAB PO SCH (09:25)
[2021-08-05] MEDS: ENOXAPARIN 40MG/0.4ML SYRINGE (J1650 PER 10MG) SC SCH (09:25)
[2021-08-05] MEDS: OMEPRAZOLE 20MG CAP PO SCH ×2 (09:25→21:03)
[2021-08-05] MEDS: NICOTINE 21MG/24HR 1 EA TRANSDERMAL TD SCH (09:25)
[2021-08-05] MEDS: FLUTICASONE PROP 0.05% NASAL SPRAY 16 GM (FLONASE) NARES SCH (09:26)
[2021-08-05] MEDS: FUROSEMIDE 40MG/4ML VIAL (J1940) IV SCH (10:03)
[2021-08-05 14:00] VITALS: BP 128/80
[2021-08-05 19:52] VITALS: BP 130/81
[2021-08-05] MEDS: FIBER-CON 625 MG TAB PO SCH (21:02)
[2021-08-05] MEDS: ACETAMINOPHEN 500 MG TAB PO PRN (21:03)
[2021-08-06] MEDS: LEVALBUTEROL 1.25 MG/0.5 ML CONCENTRATE NEB INH SCH ×6 (01:34→18:16)
[2021-08-06] MEDS: IPRATROPIUM 0.02% SOLN 0.5MG 2.5ML NEB INH SCH ×6 (01:34→18:17)
[2021-08-06] MEDS: methylPREDNISolone 40MG 1ML VIAL IV SCH ×4 (03:47→21:27)
[2021-08-06 05:22] VITALS: BP 152/60
[2021-08-06 06:44] LABS: HEMATOCRIT 44.1 % (42.0-52.0); HEMOGLOBIN 14.6 g/dl (13.5-17.5); MEAN CORPUSCULAR HEMOGLOBIN 32.9 pg (27.0-33.0); MEAN CORPUSCULAR HGB CONC 33.1 g/dl (32.0-36.5); MEAN CORPUSCULAR VOLUME 99.3 fl (80.0-96.0); PLATELET COUNT, AUTOMATED 188 10^3/uL (150-450); RED BLOOD COUNT 4.44 10^6/uL (4.30-6.10); WHITE BLOOD COUNT 7.3 10^3/uL (4.0-10.0)
[2021-08-06 07:09] LABS: BLOOD UREA NITROGEN 29 MG/DL (7-18); CALCIUM LEVEL 8.4 MG/DL (8.8-10.2); CARBON DIOXIDE LEVEL 38 MEQ/L (21-32); CHLORIDE LEVEL 95 MEQ/L (98-107); CREATININE FOR GFR 1.09 MG/DL (0.70-1.30); GLOMERULAR FILTRATION RATE > 60.0 (>42); GLUCOSE, FASTING 128 MG/DL (70-100); MAGNESIUM LEVEL 2.7 MG/DL (1.8-2.4); PHOSPHORUS LEVEL 4.3 MG/DL (2.5-4.9); POTASSIUM SERUM 5.1 MEQ/L (3.5-5.1); SODIUM LEVEL 137 MEQ/L (136-145)
[2021-08-06] MEDS: ADVAIR HFA 230/21MCG INHALER INH SCH ×2 (07:48→18:16)
[2021-08-06] MEDS: OMEPRAZOLE 20MG CAP PO SCH ×2 (08:44→21:27)
[2021-08-06] MEDS: ENOXAPARIN 40MG/0.4ML SYRINGE (J1650 PER 10MG) SC SCH (08:44)
[2021-08-06] MEDS: NICOTINE 21MG/24HR 1 EA TRANSDERMAL TD SCH (08:44)
[2021-08-06] MEDS: MIRALAX *UNIT DOSE* 17GM PACKET PO SCH (08:44)
[2021-08-06] MEDS: AZITHROMYCIN 250MG TABLET PO SCH (08:45)
[2021-08-06] MEDS: FUROSEMIDE 40MG/4ML VIAL (J1940) IV SCH (08:45)
[2021-08-06] MEDS: PRAVASTATIN 20 MG TAB PO SCH (08:45)
[2021-08-06] MEDS: FLUTICASONE PROP 0.05% NASAL SPRAY 16 GM (FLONASE) NARES SCH (08:45)
[2021-08-06] MEDS: MONTELUKAST 10 MG TAB PO SCH (08:45)
[2021-08-06 14:00] VITALS: BP 101/73
[2021-08-06 16:40] VITALS: BP 112/76
[2021-08-06 18:00] VITALS: BP 114/77
[2021-08-06] MEDS: FIBER-CON 625 MG TAB PO SCH (21:00)
[2021-08-06 22:00] VITALS: BP 114/77
[2021-08-07] MEDS: IPRATROPIUM 0.02% SOLN 0.5MG 2.5ML NEB INH SCH ×6 (00:08→18:08)
[2021-08-07] MEDS: LEVALBUTEROL 1.25 MG/0.5 ML CONCENTRATE NEB INH SCH ×6 (00:08→18:08)
[2021-08-07] MEDS: methylPREDNISolone 40MG 1ML VIAL IV SCH ×3 (05:14→17:33)
[2021-08-07 06:00] VITALS: BP 124/79
[2021-08-07 06:16] LABS: MEAN CORPUSCULAR HEMOGLOBIN 32.9 pg (27.0-33.0); MEAN CORPUSCULAR HGB CONC 32.7 g/dl (32.0-36.5); MEAN CORPUSCULAR VOLUME 100.8 fl (80.0-96.0); PLATELET COUNT, AUTOMATED 201 10^3/uL (150-450); RED BLOOD COUNT 4.86 10^6/uL (4.30-6.10); WHITE BLOOD COUNT 8.6 10^3/uL (4.0-10.0)
[2021-08-07 06:35] LABS: BLOOD UREA NITROGEN 31 MG/DL (7-18); CALCIUM LEVEL 8.2 MG/DL (8.8-10.2); CARBON DIOXIDE LEVEL 39 MEQ/L (21-32); CHLORIDE LEVEL 96 MEQ/L (98-107); GLOMERULAR FILTRATION RATE > 60.0 (>42); GLUCOSE, FASTING 101 MG/DL (70-100); MAGNESIUM LEVEL 2.7 MG/DL (1.8-2.4); PHOSPHORUS LEVEL 4.1 MG/DL (2.5-4.9); POTASSIUM SERUM 4.8 MEQ/L (3.5-5.1); SODIUM LEVEL 136 MEQ/L (136-145)
[2021-08-07] MEDS: ADVAIR HFA 230/21MCG INHALER INH SCH ×2 (07:18→18:10)
[2021-08-07 08:00] VITALS: BP 128/80
[2021-08-07] MEDS: NICOTINE 21MG/24HR 1 EA TRANSDERMAL TD SCH (10:29)
[2021-08-07] MEDS: FUROSEMIDE 40MG/4ML VIAL (J1940) IV SCH (10:29)
[2021-08-07] MEDS: ENOXAPARIN 40MG/0.4ML SYRINGE (J1650 PER 10MG) SC SCH (10:30)
[2021-08-07] MEDS: PRAVASTATIN 20 MG TAB PO SCH (10:30)
[2021-08-07] MEDS: MIRALAX *UNIT DOSE* 17GM PACKET PO SCH (10:30)
[2021-08-07] MEDS: OMEPRAZOLE 20MG CAP PO SCH ×2 (10:31→20:35)
[2021-08-07] MEDS: AZITHROMYCIN 250MG TABLET PO SCH (10:31)
[2021-08-07] MEDS: MONTELUKAST 10 MG TAB PO SCH (10:31)
[2021-08-07] MEDS: FLUTICASONE PROP 0.05% NASAL SPRAY 16 GM (FLONASE) NARES SCH (10:31)
[2021-08-07 14:00] VITALS: BP 119/76
[2021-08-07] MEDS: FIBER-CON 625 MG TAB PO SCH (20:35)
[2021-08-07 20:49] VITALS: BP 132/80
[2021-08-08] MEDS: LEVALBUTEROL 1.25 MG/0.5 ML CONCENTRATE NEB INH SCH ×4 (00:03→11:33)
[2021-08-08] MEDS: IPRATROPIUM 0.02% SOLN 0.5MG 2.5ML NEB INH SCH ×4 (00:03→11:33)
[2021-08-08] MEDS: methylPREDNISolone 40MG 1ML VIAL IV SCH ×2 (02:56→10:52)
[2021-08-08 04:50] VITALS: BP 122/54
[2021-08-08 06:24] LABS: HEMATOCRIT 45.2 % (42.0-52.0); HEMOGLOBIN 14.5 g/dl (13.5-17.5); MEAN CORPUSCULAR HEMOGLOBIN 32.4 pg (27.0-33.0); MEAN CORPUSCULAR HGB CONC 32.1 g/dl (32.0-36.5); MEAN CORPUSCULAR VOLUME 101.1 fl (80.0-96.0); PLATELET COUNT, AUTOMATED 172 10^3/uL (150-450); RED BLOOD COUNT 4.47 10^6/uL (4.30-6.10); WHITE BLOOD COUNT 8.8 10^3/uL (4.0-10.0)
[2021-08-08 06:53] LABS: BLOOD UREA NITROGEN 34 MG/DL (7-18); CARBON DIOXIDE LEVEL 42 MEQ/L (21-32); CHLORIDE LEVEL 96 MEQ/L (98-107); CREATININE FOR GFR 0.93 MG/DL (0.70-1.30); GLOMERULAR FILTRATION RATE > 60.0 (>42); GLUCOSE, FASTING 118 MG/DL (70-100); MAGNESIUM LEVEL 2.8 MG/DL (1.8-2.4); PHOSPHORUS LEVEL 3.6 MG/DL (2.5-4.9); POTASSIUM SERUM 5.1 MEQ/L (3.5-5.1); SODIUM LEVEL 139 MEQ/L (136-145)
[2021-08-08] MEDS: ADVAIR HFA 230/21MCG INHALER INH SCH (07:07)
[2021-08-08] MEDS: FUROSEMIDE 40MG/4ML VIAL (J1940) IV SCH (08:46)
[2021-08-08] MEDS: ENOXAPARIN 40MG/0.4ML SYRINGE (J1650 PER 10MG) SC SCH (08:46)
[2021-08-08] MEDS: OMEPRAZOLE 20MG CAP PO SCH (08:48)
[2021-08-08] MEDS: PRAVASTATIN 20 MG TAB PO SCH (08:48)
[2021-08-08] MEDS: MONTELUKAST 10 MG TAB PO SCH (08:48)
[2021-08-08 08:50] VITALS: BP 132/96
[2021-08-08] MEDS: MIRALAX *UNIT DOSE* 17GM PACKET PO SCH (08:50)
[2021-08-08] MEDS: NICOTINE 21MG/24HR 1 EA TRANSDERMAL TD SCH (08:51)
[2021-08-08] MEDS: FLUTICASONE PROP 0.05% NASAL SPRAY 16 GM (FLONASE) NARES SCH (09:00)
[2021-08-08] MEDS ORDERED: MIRA1POW3 PO (11:06)
[2021-08-08] MEDS ORDERED: NICO21PAT TD (11:06)
[2021-08-08] MEDS ORDERED: PRED10TA2 PO (11:06)
[2021-08-08] MEDS ORDERED: DOXY100C3 PO (11:07)
== END 2021-08-08 14:02 | disposition home health service (06) | DRG 190 ==
LOC: M ED 17:17 → EDBD 17:17 → M ED INP 23:37 → ENRESERV 08-02 00:45 → M MSPAV 08-02 01:44
PROVIDERS: ADMIT Internal Medicine; ATTEND General Practice
DX: J44.1 Chronic obstructive pulmonary disease with (acute) exacerbation (principal); J96.21 Acute and chronic respiratory failure with hypoxia; K56.600 Partial intestinal obstruction, unspecified as to cause; Z68.41 Body mass index [BMI] 40.0-44.9, adult; I50.9 Heart failure, unspecified; G47.33 Obstructive sleep apnea (adult) (pediatric); K21.9 Gastro-esophageal reflux disease without esophagitis; K22.70 Barrett's esophagus without dysplasia; I11.0 Hypertensive heart disease with heart failure; F17.200 Nicotine dependence, unspecified, uncomplicated; Z20.822 Contact with and (suspected) exposure to COVID-19; Z79.899 Other long term (current) drug therapy; Z91.018 Allergy to other foods; Z91.013 Allergy to seafood; E78.5 Hyperlipidemia, unspecified; J98.6 Disorders of diaphragm; R91.1 Solitary pulmonary nodule; E66.9 Obesity, unspecified; K43.9 Ventral hernia without obstruction or gangrene; I71.9 Aortic aneurysm of unspecified site, without rupture

== ENCOUNTER → 2021-11-10 | Outpatient (REF) | payer MEDICARE ==
[~2021-11-10] MED LIST changes: +ALBU2.5V10 INH; +ALBU8.5H INH; -ALBU83IN INH; +DOXY100C3 PO; +MIRA1POW3 PO; +NICO21PAT TD; +PRED10TA2 PO
== END ==
LOC: M SFHCPLAZ 10:54
PROVIDERS: ATTEND Family Medicine
DX: I11.0 Hypertensive heart disease with heart failure (principal); I50.32 Chronic diastolic (congestive) heart failure

== ENCOUNTER → 2021-11-10 | Outpatient (CLI) | payer MEDICARE ==
[2021-11-10 13:21] LABS: BASO # 0.1 10^3/uL (0.0-0.2); BASO % 0.8 % (0.0-1.0); EOS # 0.1 10^3/uL (0.0-0.5); EOS % 1.7 % (0.0-3.0); HEMATOCRIT 50.5 % (42.0-52.0); HEMOGLOBIN 15.9 g/dl (13.5-17.5); LYMPH # 0.9 10^3/uL (1.5-5.0); LYMPH % 13.1 % (24.0-44.0); MEAN CORPUSCULAR HEMOGLOBIN 32.3 pg (27.0-33.0); MEAN CORPUSCULAR HGB CONC 31.5 g/dl (32.0-36.5); MEAN CORPUSCULAR VOLUME 102.4 fl (80.0-96.0); MONO # 0.6 10^3/uL (0.0-0.8); MONO % 7.9 % (2.0-8.0); NEUTROPHILS # 5.4 10^3/uL (1.5-8.5); NEUTROPHILS % 76.2 % (36.0-66.0); PLATELET COUNT, AUTOMATED 146 10^3/uL (150-450); RED BLOOD COUNT 4.93 10^6/uL (4.30-6.10); WHITE BLOOD COUNT 7.1 10^3/uL (4.0-10.0)
[2021-11-10 13:40] LABS: HEMOGLOBIN A1c 5.8 %
[2021-11-10 13:51] LABS: ALBUMIN 3.8 GM/DL (3.2-5.2); ALT/SGPT 15 U/L (12-78); BILIRUBIN,TOTAL 0.6 MG/DL (0.2-1.0); BLOOD UREA NITROGEN 17 MG/DL (7-18); CALCIUM LEVEL 9.3 MG/DL (8.8-10.2); CARBON DIOXIDE LEVEL 30 MEQ/L (21-32); CHLORIDE LEVEL 104 MEQ/L (98-107); CHOLESTEROL LEVEL 147 MG/DL (<200); CREATININE FOR GFR 1.07 MG/DL (0.70-1.30); GLOMERULAR FILTRATION RATE > 60.0 (>42); GLUCOSE, FASTING 105 MG/DL (70-100); HDL CHOLESTEROL 44 MG/DL (>40); LDL CHOLESTEROL 80 MG/DL (<100); MAGNESIUM LEVEL 1.8 MG/DL (1.8-2.4); NON-HDL-C 103 MG/DL; SODIUM LEVEL 141 MEQ/L (136-145); TOTAL PROTEIN 7.1 GM/DL (6.4-8.2); TRIGLYCERIDES LEVEL 116 MG/DL (<150)
== END ==
LOC: M PLALAB 11:12
PROVIDERS: ATTEND Nurse Practitioner
DX: I11.0 Hypertensive heart disease with heart failure (principal); I50.32 Chronic diastolic (congestive) heart failure; Z79.899 Other long term (current) drug therapy

== ENCOUNTER → 2022-08-06 | Outpatient (CLI) | payer MEDICARE, MEDICAID | LOC: M RAD 14:13 | PROVIDERS: ATTEND Internal Medicine Pulmonary Disease | DX: F17.218 Nicotine dependence, cigarettes, with other nicotine-induced disorders (principal) ==

== ENCOUNTER → 2022-08-28 | Outpatient (CLI) | payer MEDICARE, MEDICAID ==
[2022-08-28 17:54] LABS: BASO # 0.1 10^3/uL (0.0-0.2); BASO % 0.8 % (0.0-1.0); EOS # 0.2 10^3/uL (0.0-0.5); EOS % 2.5 % (0.0-3.0); HEMOGLOBIN 15.8 g/dl (13.5-17.5); LYMPH # 0.9 10^3/uL (1.5-5.0); LYMPH % 13.7 % (24.0-44.0); MEAN CORPUSCULAR HEMOGLOBIN 32.4 pg (27.0-33.0); MEAN CORPUSCULAR VOLUME 104.7 fl (80.0-96.0); MONO # 0.5 10^3/uL (0.0-0.8); MONO % 8.2 % (2.0-8.0); NEUTROPHILS # 4.8 10^3/uL (1.5-8.5); NEUTROPHILS % 74.5 % (36.0-66.0); PLATELET COUNT, AUTOMATED 197 10^3/uL (150-450); RED BLOOD COUNT 4.87 10^6/uL (4.30-6.10); WHITE BLOOD COUNT 6.4 10^3/uL (4.0-10.0)
[2022-08-28 18:14] LABS: HEMOGLOBIN A1c 5.7 % (4.0-6.0)
[2022-08-28 18:31] LABS: ALBUMIN 3.7 G/DL (3.2-5.2); ALKALINE PHOSPHATASE 61 U/L (46-116); ALT/SGPT < 9 U/L (7.0-40); AST/SGOT 12 U/L (<34); BILIRUBIN,TOTAL 0.5 MG/DL (0.3-1.2); BLOOD UREA NITROGEN 14 MG/DL (9-23); CARBON DIOXIDE LEVEL 33 MMOL/L (20-31); CHLORIDE LEVEL 106 MMOL/L (98-107); CREATININE FOR GFR 0.97 MG/DL (0.70-1.30); GLOMERULAR FILTRATION RATE > 60.0 (>42); GLUCOSE, FASTING 93 MG/DL (74-106); MAGNESIUM LEVEL 1.9 MG/DL (1.8-2.4); POTASSIUM SERUM 5.2 MMOL/L (3.5-5.1); SODIUM LEVEL 142 MMOL/L (136-145); TOTAL PROTEIN 6.7 G/DL (5.7-8.2)
== END ==
LOC: M PLALAB 14:36
PROVIDERS: ATTEND Physician Assistant
DX: R30.0 Dysuria (principal); R10.9 Unspecified abdominal pain; I10 Essential (primary) hypertension; Z79.899 Other long term (current) drug therapy

== ENCOUNTER 2022-10-04 13:27 | Outpatient (RCR) | payer MEDICARE, MEDICAID | END 2022-10-10 | LOC: M PT 13:27 | PROVIDERS: ATTEND Student in an Organized Health Care Education/Training Program | DX: R06.09 Other forms of dyspnea (principal) ==

== ENCOUNTER → 2022-10-25 | Outpatient (REF) | payer MEDICARE | LOC: M SFHCPLAZ 17:14 | PROVIDERS: ATTEND Student in an Organized Health Care Education/Training Program | DX: R30.0 Dysuria (principal) ==

== ENCOUNTER → 2022-11-23 | Outpatient (REF) | payer MEDICARE | LOC: M SFHCPLAZ 14:14 | PROVIDERS: ATTEND Family Medicine | DX: Z13.220 Encounter for screening for lipoid disorders (principal) ==

== ENCOUNTER → 2022-11-23 | Outpatient (CLI) | payer MEDICARE, MEDICAID ==
[2022-11-23 14:25] LABS: HEMATOCRIT 50.3 % (42.0-52.0); HEMOGLOBIN 15.2 g/dl (13.5-17.5); MEAN CORPUSCULAR HGB CONC 30.2 g/dl (32.0-36.5); MEAN CORPUSCULAR VOLUME 102.4 fl (80.0-96.0); PLATELET COUNT, AUTOMATED 215 10^3/uL (150-450); RED BLOOD COUNT 4.91 10^6/uL (4.30-6.10); WHITE BLOOD COUNT 7.4 10^3/uL (4.0-10.0)
[2022-11-23 14:55] LABS: BLOOD UREA NITROGEN 18 MG/DL (9-23); CALCIUM LEVEL 8.3 MG/DL (8.3-10.6); CARBON DIOXIDE LEVEL 36 MMOL/L (20-31); CHLORIDE LEVEL 104 MMOL/L (98-107); CREATININE FOR GFR 0.96 MG/DL (0.70-1.30); GLOMERULAR FILTRATION RATE > 60.0 (>42); GLUCOSE, FASTING 109 MG/DL (74-106); POTASSIUM SERUM 4.7 MMOL/L (3.5-5.1); SODIUM LEVEL 142 MMOL/L (136-145)
== END ==
LOC: M PLALAB 09:54
PROVIDERS: ATTEND Student in an Organized Health Care Education/Training Program
DX: R30.0 Dysuria (principal)

== ENCOUNTER → 2022-11-23 | Outpatient (CLI) | payer MEDICARE, MEDICAID ==
[2022-11-23 14:56] LABS: CHOLESTEROL RISK RATIO 3.07 (<5); HDL CHOLESTEROL 44.9 MG/DL (>40); LDL CHOLESTEROL 75.9 MG/DL (<100); NON-HDL-C 93.1 MG/DL
== END ==
LOC: M PLALAB 09:49
PROVIDERS: ATTEND Student in an Organized Health Care Education/Training Program
DX: R30.0 Dysuria (principal); I10 Essential (primary) hypertension; Z13.220 Encounter for screening for lipoid disorders

== ENCOUNTER → 2022-12-14 | Outpatient (REF) | payer MEDICARE | LOC: M SFHCPLAZ 12:12 | PROVIDERS: ATTEND Family Medicine | DX: I50.32 Chronic diastolic (congestive) heart failure (principal) ==

== ENCOUNTER → 2022-12-14 | Outpatient (CLI) | payer MEDICARE ==
[2022-12-14 16:14] LABS: ALBUMIN 3.6 G/DL (3.2-5.2); ALKALINE PHOSPHATASE 49 U/L (46-116); ALT/SGPT 11 U/L (7.0-40); AST/SGOT 12 U/L (<34); BILIRUBIN,TOTAL 0.4 MG/DL (0.3-1.2); BLOOD UREA NITROGEN 22 MG/DL (9-23); CALCIUM LEVEL 9.1 MG/DL (8.3-10.6); CARBON DIOXIDE LEVEL 30 MMOL/L (20-31); CHLORIDE LEVEL 108 MMOL/L (98-107); GLOMERULAR FILTRATION RATE > 60.0 (>42); GLUCOSE, FASTING 95 MG/DL (74-106); SODIUM LEVEL 144 MMOL/L (136-145); TOTAL PROTEIN 6.7 G/DL (5.7-8.2)
== END ==
LOC: M PLAIMG 12:26
PROVIDERS: ATTEND Student in an Organized Health Care Education/Training Program
DX: J44.9 Chronic obstructive pulmonary disease, unspecified (principal); I50.32 Chronic diastolic (congestive) heart failure

== ENCOUNTER → 2022-12-31 | Outpatient (CLI) | payer MEDICARE, MEDICAID | LOC: M RAD 13:13 | PROVIDERS: ATTEND Student in an Organized Health Care Education/Training Program | DX: M79.604 Pain in right leg (principal) ==

== ENCOUNTER → 2023-01-03 | Outpatient (REF) | payer MEDICARE, MEDICAID | LOC: M SFHCPLAZ 10:00 | PROVIDERS: ATTEND Student in an Organized Health Care Education/Training Program | DX: S81.801D Unspecified open wound, right lower leg, subsequent encounter (principal) ==

== ENCOUNTER → 2023-01-22 | Outpatient (CLI) | payer MEDICARE, MEDICAID | LOC: M PLAIMG 08:43 | PROVIDERS: ATTEND Student in an Organized Health Care Education/Training Program | DX: M19.071 Primary osteoarthritis, right ankle and foot (principal); R22.41 Localized swelling, mass and lump, right lower limb ==

== ENCOUNTER → 2023-03-07 | Outpatient (CLI) | payer MEDICARE, MEDICAID | LOC: M RAD 08:45 | PROVIDERS: ATTEND Physician Assistant | DX: L97.812 Non-pressure chronic ulcer of other part of right lower leg with fat layer exposed (principal); R68.89 Other general symptoms and signs ==

== ENCOUNTER → 2023-04-16 | Outpatient (CLI) | payer MEDICARE, MEDICAID ==
[~2023-04-16] MED LIST changes: +FLUT1BLS3; +INCR1INH; +SENN-83 PO
[2023-04-16 17:02] LABS: HEMOGLOBIN A1c 5.7 % (4.0-6.0)
== END ==
LOC: M PLALAB 14:17
PROVIDERS: ATTEND Student in an Organized Health Care Education/Training Program
DX: R73.03 Prediabetes (principal)

== ENCOUNTER 2023-05-03 08:17 | Day surgery (SDC) | payer MEDICARE, MEDICAID ==
[~2023-05-03] VITALS: Ht 165.1 cm; Wt 116.8 kg
[~2023-05-03 08:17] MED LIST changes: +NS 1,000 ML IV ONE
[2023-05-03] MEDS ORDERED: propofoL 200 MG/20 ML VIAL As Ordered ONE (08:44)
[2023-05-03 10:37] VITALS: TEMP 97.5
[2023-05-03 10:52] VITALS: BP 142/63; O2SAT 85
== END 2023-05-03 13:58 | disposition home or self-care (01) ==
LOC: M OPP 08:17
PROVIDERS: ATTEND Internal Medicine Gastroenterology
DX: K22.70 Barrett's esophagus without dysplasia (principal); Z09 Encounter for follow-up examination after completed treatment for conditions other than malignant neoplasm; K22.89 Other specified disease of esophagus; K21.00 Gastro-esophageal reflux disease with esophagitis, without bleeding; Z98.890 Other specified postprocedural states; F17.200 Nicotine dependence, unspecified, uncomplicated; G47.30 Sleep apnea, unspecified; Z79.51 Long term (current) use of inhaled steroids; Z79.52 Long term (current) use of systemic steroids; Z79.85 Long-term (current) use of injectable non-insulin antidiabetic drugs; Z79.899 Other long term (current) drug therapy; Z99.89 Dependence on other enabling machines and devices; Z88.8 Allergy status to other drugs, medicaments and biological substances; Z91.013 Allergy to seafood; Z91.018 Allergy to other foods

== ENCOUNTER 2023-05-20 08:56 | Inpatient (IN) | payer MEDICARE, MEDICAID ==
[~2023-05-20] VITALS: Ht 165.1 cm; Wt 104.6 kg
[2023-05-20] VITALS (17 sets, daily range): BP systolic 87–141; BP diastolic 50–78; TEMP 98.1–99.4; O2SAT 85–98
[~2023-05-20 08:56] MED LIST changes: -NS 1,000 ML IV ONE
[2023-05-20] MEDS ORDERED: methylPREDNISolone 125MG 2ML VIAL IV ONE (09:05)
[2023-05-20] MEDS ORDERED: ALBUTEROL SULFATE 2.5MG/0.5ML INH NEB SOLN INH ONE ×2 (09:05→10:10)
[2023-05-20] MEDS ORDERED: IPRATROPIUM 0.5MG/ALBUTEROL 2.5MG INH SOL UD 3ML (DUONEB) NEB ONE (09:05)
[2023-05-20] MEDS ORDERED: NS 500 ML IV ONE ×2 (09:05→11:10)
[2023-05-20 09:25] LABS: BASO % 0.2 % (0.0-1.0); EOS % 0.1 % (0.0-3.0); HEMATOCRIT 55.9 % (42.0-52.0); HEMOGLOBIN 16.4 g/dl (13.5-17.5); LYMPH # 0.3 10^3/uL (1.5-5.0); LYMPH % 2.7 % (24.0-44.0); MEAN CORPUSCULAR HEMOGLOBIN 31.5 pg (27.0-33.0); MEAN CORPUSCULAR HGB CONC 29.3 g/dl (32.0-36.5); MEAN CORPUSCULAR VOLUME 107.5 fl (80.0-96.0); MONO # 1.2 10^3/uL (0.0-0.8); MONO % 10.8 % (2.0-8.0); NEUTROPHILS # 9.4 10^3/uL (1.5-8.5); NEUTROPHILS % 84.8 % (36.0-66.0); PLATELET COUNT, AUTOMATED 234 10^3/uL (150-450); WHITE BLOOD COUNT 11.1 10^3/uL (4.0-10.0)
[2023-05-20 09:28] LABS: ABG BASE EXCESS -0.6 (-2.0-2.0); ABG HCO3 33.5 MMOL/L (22.0-26.0); ABG O2 SATURATION 97.6 % (95.0-99.0); ABG PARTIAL PRESSURE CO2 112.1 mmHg (35.0-45.0); ABG PARTIAL PRESSURE O2 122.2 mmHg (75.0-100.0); ABG TOTAL CO2 36.9 MMOL/L (23.0-31.0); ABG pH (ARTERIAL) 7.093 UNITS (7.350-7.450)
[2023-05-20 09:35] LABS: INR 1.27; PROTHROMBIN TIME 15.5 SECONDS (12.5-14.5)
[2023-05-20 09:46] LABS: CK-MB VALUE MASS 7.6 NG/ML (<3.6); ETHYL ALCOHOL (ETHANOL) < 0.003 % (0.000-0.010)
[2023-05-20 09:47] LABS: SALICYLATE LEVEL < 3.0 MG/DL (<30)
[2023-05-20 09:49] LABS: THYROXINE (T4) 4.6 UG/DL (4.5-10.9)
[2023-05-20 09:50] LABS: THYROID STIMULATING HORMONE 0.668 uIU/ML (0.55-4.78)
[2023-05-20 09:58] LABS: ALBUMIN 4.2 G/DL (3.2-5.2); ALKALINE PHOSPHATASE 58 U/L (46-116); ALT/SGPT 30 U/L (7.0-40); AST/SGOT 52 U/L (<34); BILIRUBIN,DIRECT 0.2 MG/DL (<0.4); BILIRUBIN,TOTAL 0.6 MG/DL (0.3-1.2); BLOOD UREA NITROGEN 40 MG/DL (9-23); CALCIUM LEVEL 8.8 MG/DL (8.3-10.6); CARBON DIOXIDE LEVEL 34 MMOL/L (20-31); CHLORIDE LEVEL 99 MMOL/L (98-107); CPK CREATINE PHOSPHOKINASE 241 U/L (46-171); CREATININE FOR GFR 1.77 MG/DL (0.70-1.30); GLUCOSE, FASTING 162 MG/DL (74-106); MB/CK RELATIVE INDEX 3.15 (< OR =4); POTASSIUM SERUM 6.2 MMOL/L (3.5-5.1); SODIUM LEVEL 136 MMOL/L (136-145); TOTAL PROTEIN 7.8 G/DL (5.7-8.2)
[2023-05-20] MEDS ORDERED: SODIUM BICARBONATE 8.4% INJ 50ML SYRINGE IV ONE (10:10)
[2023-05-20] MEDS ORDERED: CALCIUM GLUCONATE 1,000MG/10ML VIAL (100MG/ML) IV ONE (10:10)
[2023-05-20] MEDS ORDERED: HumuLIN R (REGULAR) INSULIN (NovoLIN R) **100U/ML** PER UNIT IV ONE (10:10)
[2023-05-20] MEDS ORDERED: DEXTROSE 50% 50ML SYRINGE IV ONE (10:10)
[2023-05-20] MEDS ORDERED: PATIROMER SORBITEX CALCIUM 8.4 GM POWDER PACKET (VELTASSA) PO ONE (10:10)
[2023-05-20] MEDS ORDERED: DOXYCYCLINE HYCLATE 100 MG in D5W MINI-BAG PLUS 100 ML IV ONE (10:15)
[2023-05-20] MEDS ORDERED: cefTRIAXone SOD 2 GM in D5W MINI-BAG PLUS 50 ML IV ONE (10:15)
[2023-05-20 10:37] LABS: ABG BASE EXCESS -1.7 (-2.0-2.0); ABG HCO3 31.1 MMOL/L (22.0-26.0); ABG O2 SATURATION 91.2 % (95.0-99.0); ABG PARTIAL PRESSURE O2 78.2 mmHg (75.0-100.0); ABG STANDARD HCO3 22.9 MMOL/L. (22.0-26.0); ABG TOTAL CO2 34.1 MMOL/L (23.0-31.0)
[2023-05-20 10:39] LABS: ABG pH (ARTERIAL) 7.118 UNITS (7.350-7.450)
[2023-05-20 10:40] LABS: ABG PARTIAL PRESSURE CO2 98.3 mmHg (35.0-45.0)
[2023-05-20 11:15] LABS: CK-MB VALUE MASS 6.7 NG/ML (<3.6)
[2023-05-20 11:17] LABS: MB/CK RELATIVE INDEX 3.56 (< OR =4)
[2023-05-20] MEDS ORDERED: FUROSEMIDE 40MG/4ML VIAL IV ONE (12:05)
[2023-05-20] MEDS ORDERED: OSELTAMIVIR PHOSPHATE 75 MG CAP (TAMIFLU) PO ONE (12:15)
[2023-05-20] MEDS ORDERED: MED REC IN PROGRESS XX SCH (12:30)
[2023-05-20 12:44] LABS: VENOUS BASE EXCESS -2.7 (-2.0-2.0); VENOUS HCO3 29.3 MMOL/L (23.0-27.0); VENOUS O2 SATURATION 90.6 % (60.0-80.0); VENOUS PARTIAL PRESSURE CO2 88.9 mmHg (38.0-50.0); VENOUS PARTIAL PRESSURE O2 69.5 mmHg (30.0-50.0); VENOUS PH 7.136 UNITS (7.330-7.430); VENOUS STANDARD HCO3 22.1 MMOL/L
[2023-05-20 13:10] LABS: CALCIUM LEVEL 8.6 MG/DL (8.3-10.6); CREATININE FOR GFR 1.75 MG/DL (0.70-1.30); GLOMERULAR FILTRATION RATE 40.5 (>42); POTASSIUM SERUM 5.3 MMOL/L (3.5-5.1)
[2023-05-20 16:10] LABS: VENOUS BASE EXCESS 2.4 (-2.0-2.0); VENOUS HCO3 34.9 MMOL/L (23.0-27.0); VENOUS O2 SATURATION 97.8 % (60.0-80.0); VENOUS PARTIAL PRESSURE CO2 99.8 mmHg (38.0-50.0); VENOUS PARTIAL PRESSURE O2 114.6 mmHg (30.0-50.0); VENOUS PH 7.162 UNITS (7.330-7.430); VENOUS STANDARD HCO3 26.6 MMOL/L
[2023-05-20 17:04] LABS: VENOUS BASE EXCESS 0.8 (-2.0-2.0); VENOUS O2 SATURATION 99.8 % (60.0-80.0); VENOUS PARTIAL PRESSURE O2 260.9 mmHg (30.0-50.0); VENOUS PH 7.223 UNITS (7.330-7.430); VENOUS STANDARD HCO3 25.2 MMOL/L; VENOUS TOTAL CO2 33.4 MMOL/L (24.0-28.0)
[2023-05-20 19:24] LABS: VENOUS BASE EXCESS 1.9 (-2.0-2.0); VENOUS HCO3 32.5 MMOL/L (23.0-27.0); VENOUS O2 SATURATION 98.6 % (60.0-80.0); VENOUS PARTIAL PRESSURE CO2 81.9 mmHg (38.0-50.0); VENOUS PH 7.217 UNITS (7.330-7.430); VENOUS STANDARD HCO3 26.2 MMOL/L; VENOUS TOTAL CO2 35.1 MMOL/L (24.0-28.0)
[2023-05-20] MEDS: IPRATROPIUM 0.5MG/ALBUTEROL 2.5MG INH SOL UD 3ML (DUONEB) NEB SCH (19:27)
[2023-05-20] MEDS: methylPREDNISolone 40MG 1ML VIAL IV SCH (20:27)
[2023-05-20] MEDS ORDERED: PRED10PA2 PO (21:25)
[2023-05-20] MEDS ORDERED: FLUT1BLS3 INH (21:38)
[2023-05-20] MEDS ORDERED: INCR1INH INH (21:38)
[2023-05-20] MEDS ORDERED: AUGM500T34 PO (21:38)
[2023-05-20] MEDS: HEPARIN SOD (PORCINE) 5000UNITS/ML 1ML VIAL/SYRINGE SC SCH (22:53)
[2023-05-20] MEDS ORDERED: DOXYCYCLINE HYCLATE 100 MG in D5W MINI-BAG PLUS 100 ML IV SCH (23:00)
[2023-05-20 23:19] LABS: VENOUS BASE EXCESS 1.7 (-2.0-2.0); VENOUS HCO3 33.1 MMOL/L (23.0-27.0); VENOUS O2 SATURATION 91.1 % (60.0-80.0); VENOUS PARTIAL PRESSURE CO2 89.3 mmHg (38.0-50.0); VENOUS PARTIAL PRESSURE O2 67.4 mmHg (30.0-50.0); VENOUS PH 7.187 UNITS (7.330-7.430); VENOUS STANDARD HCO3 25.8 MMOL/L; VENOUS TOTAL CO2 35.9 MMOL/L (24.0-28.0)
[2023-05-21] VITALS (24 sets, daily range): BP systolic 87–157; BP diastolic 52–104; TEMP 97.5–99.1; O2SAT 90–99
[2023-05-21] MEDS: IPRATROPIUM 0.5MG/ALBUTEROL 2.5MG INH SOL UD 3ML (DUONEB) NEB SCH ×4 (00:19→19:21)
[2023-05-21 02:20] LABS: VENOUS BASE EXCESS 4.2 (-2.0-2.0); VENOUS HCO3 36.1 MMOL/L (23.0-27.0); VENOUS O2 SATURATION 74.3 % (60.0-80.0); VENOUS PARTIAL PRESSURE CO2 96.1 mmHg (38.0-50.0); VENOUS PARTIAL PRESSURE O2 43.5 mmHg (30.0-50.0); VENOUS PH 7.193 UNITS (7.330-7.430); VENOUS STANDARD HCO3 27.6 MMOL/L; VENOUS TOTAL CO2 39.1 MMOL/L (24.0-28.0)
[2023-05-21 04:38] LABS: VENOUS BASE EXCESS 4.1 (-2.0-2.0); VENOUS HCO3 34.8 MMOL/L (23.0-27.0); VENOUS O2 SATURATION 99.2 % (60.0-80.0); VENOUS PARTIAL PRESSURE CO2 84.3 mmHg (38.0-50.0); VENOUS PARTIAL PRESSURE O2 165.3 mmHg (30.0-50.0); VENOUS PH 7.234 UNITS (7.330-7.430); VENOUS STANDARD HCO3 28.2 MMOL/L; VENOUS TOTAL CO2 37.4 MMOL/L (24.0-28.0)
[2023-05-21] MEDS ORDERED: ACETAMINOPHEN TAB 650MG DOSE (2X325MG) PO ONE (05:00)
[2023-05-21 05:09] LABS: ALBUMIN 3.1 G/DL (3.2-5.2); BILIRUBIN,TOTAL 0.3 MG/DL (0.3-1.2); CALCIUM LEVEL 8.4 MG/DL (8.3-10.6); CREATININE FOR GFR 1.41 MG/DL (0.70-1.30); POTASSIUM SERUM 5.6 MMOL/L (3.5-5.1); TOTAL PROTEIN 6.1 G/DL (5.7-8.2)
[2023-05-21] MEDS: HEPARIN SOD (PORCINE) 5000UNITS/ML 1ML VIAL/SYRINGE SC SCH ×4 (06:08→22:14)
[2023-05-21] MEDS: FUROSEMIDE 20MG/2ML VIAL IV SCH (09:40)
[2023-05-21] MEDS: methylPREDNISolone 40MG 1ML VIAL IV SCH ×2 (09:40→20:18)
[2023-05-21] MEDS: OSELTAMIVIR PHOSPHATE 30MG CAPSULE PO SCH ×2 (12:07→20:18)
[2023-05-21] MEDS: DOXYCYCLINE HYCLATE 100MG TABLET PO SCH ×2 (12:07→20:18)
[2023-05-21] MEDS: MONTELUKAST 10 MG TAB PO SCH (12:07)
[2023-05-21 12:10] LABS: VENOUS BASE EXCESS 7.1 (-2.0-2.0); VENOUS O2 SATURATION 98.2 % (60.0-80.0); VENOUS PARTIAL PRESSURE CO2 63.8 mmHg (38.0-50.0); VENOUS PARTIAL PRESSURE O2 106.1 mmHg (30.0-50.0); VENOUS PH 7.357 UNITS (7.330-7.430); VENOUS STANDARD HCO3 30.9 MMOL/L; VENOUS TOTAL CO2 36.9 MMOL/L (24.0-28.0)
[2023-05-21 12:44] LABS: CALCIUM LEVEL 8.3 MG/DL (8.3-10.6); CREATININE FOR GFR 1.26 MG/DL (0.70-1.30); GLOMERULAR FILTRATION RATE 59.2 (>42); POTASSIUM SERUM 5.4 MMOL/L (3.5-5.1)
[2023-05-22] VITALS (45 sets, daily range): BP systolic 109–158; BP diastolic 59–87; TEMP 98–98.7; O2SAT 78–100
[2023-05-22] MEDS: IPRATROPIUM 0.5MG/ALBUTEROL 2.5MG INH SOL UD 3ML (DUONEB) NEB SCH ×4 (01:02→19:28)
[2023-05-22] MEDS ORDERED: ALBUTEROL 90 MCG/ACT 8GM HFA INHALER INH PRN (03:10)
[2023-05-22 04:47] LABS: VENOUS BASE EXCESS 8.6 (-2.0-2.0); VENOUS HCO3 37.9 MMOL/L (23.0-27.0); VENOUS O2 SATURATION 85.8 % (60.0-80.0); VENOUS PARTIAL PRESSURE O2 51.9 mmHg (30.0-50.0); VENOUS PH 7.321 UNITS (7.330-7.430); VENOUS STANDARD HCO3 32.1 MMOL/L; VENOUS TOTAL CO2 40.2 MMOL/L (24.0-28.0)
[2023-05-22 05:11] LABS: BLOOD UREA NITROGEN 44 MG/DL (9-23); CALCIUM LEVEL 8.3 MG/DL (8.3-10.6); CARBON DIOXIDE LEVEL 36 MMOL/L (20-31); CHLORIDE LEVEL 102 MMOL/L (98-107); CREATININE FOR GFR 1.07 MG/DL (0.70-1.30); GLOMERULAR FILTRATION RATE > 60.0 (>42); GLUCOSE, FASTING 116 MG/DL (74-106); POTASSIUM SERUM 5.5 MMOL/L (3.5-5.1); SODIUM LEVEL 141 MMOL/L (136-145)
[2023-05-22] MEDS: HEPARIN SOD (PORCINE) 5000UNITS/ML 1ML VIAL/SYRINGE SC SCH ×3 (06:00→21:18)
[2023-05-22] MEDS: methylPREDNISolone 40MG 1ML VIAL IV SCH ×2 (09:58→20:20)
[2023-05-22] MEDS: FUROSEMIDE 20MG/2ML VIAL IV SCH (09:58)
[2023-05-22] MEDS: DOXYCYCLINE HYCLATE 100MG TABLET PO SCH ×2 (09:59→20:20)
[2023-05-22] MEDS: MONTELUKAST 10 MG TAB PO SCH (09:59)
[2023-05-22] MEDS: OSELTAMIVIR PHOSPHATE 30MG CAPSULE PO SCH (09:59)
[2023-05-22] MEDS ORDERED: PATIROMER SORBITEX CALCIUM 8.4 GM POWDER PACKET (VELTASSA) PO ONE (12:00)
[2023-05-22] MEDS: OXYMETAZOLINE 0.05% NASAL SPRAY (AFRIN) SCH ×2 (13:48→20:20)
[2023-05-22] MEDS: ADVAIR HFA 230/21MCG INHALER INH SCH (19:28)
[2023-05-22] MEDS: OSELTAMIVIR PHOSPHATE 75 MG CAP (TAMIFLU) PO SCH (20:20)
[2023-05-23] VITALS (28 sets, daily range): BP systolic 127–157; BP diastolic 68–98; TEMP 97.5–98.6; O2SAT 84–94
[2023-05-23] MEDS: IPRATROPIUM 0.5MG/ALBUTEROL 2.5MG INH SOL UD 3ML (DUONEB) NEB SCH ×4 (01:23→19:46)
[2023-05-23 05:13] LABS: VENOUS BASE EXCESS 13.6 (-2.0-2.0); VENOUS HCO3 43.1 MMOL/L (23.0-27.0); VENOUS O2 SATURATION 96.1 % (60.0-80.0); VENOUS PARTIAL PRESSURE CO2 79.5 mmHg (38.0-50.0); VENOUS PH 7.352 UNITS (7.330-7.430); VENOUS STANDARD HCO3 37.5 MMOL/L; VENOUS TOTAL CO2 45.5 MMOL/L (24.0-28.0)
[2023-05-23] MEDS: HEPARIN SOD (PORCINE) 5000UNITS/ML 1ML VIAL/SYRINGE SC SCH ×3 (05:42→21:51)
[2023-05-23 05:44] LABS: BLOOD UREA NITROGEN 40 MG/DL (9-23); CALCIUM LEVEL 8.8 MG/DL (8.3-10.6); CARBON DIOXIDE LEVEL > 40.0 MMOL/L (20-31); CHLORIDE LEVEL 99 MMOL/L (98-107); CREATININE FOR GFR 0.94 MG/DL (0.70-1.30); GLOMERULAR FILTRATION RATE > 60.0 (>42); GLUCOSE, FASTING 135 MG/DL (74-106); POTASSIUM SERUM 5.2 MMOL/L (3.5-5.1); SODIUM LEVEL 141 MMOL/L (136-145)
[2023-05-23] MEDS: ADVAIR HFA 230/21MCG INHALER INH SCH ×2 (07:49→19:47)
[2023-05-23] MEDS: MONTELUKAST 10 MG TAB PO SCH (09:07)
[2023-05-23] MEDS: OSELTAMIVIR PHOSPHATE 75 MG CAP (TAMIFLU) PO SCH ×2 (09:07→20:26)
[2023-05-23] MEDS: methylPREDNISolone 40MG 1ML VIAL IV SCH ×2 (09:07→20:26)
[2023-05-23] MEDS: OXYMETAZOLINE 0.05% NASAL SPRAY (AFRIN) SCH ×2 (09:07→20:26)
[2023-05-23] MEDS: DOXYCYCLINE HYCLATE 100MG TABLET PO SCH ×2 (09:07→20:26)
[2023-05-23] MEDS ORDERED: CEPACOL LOZENGE PO PRN (11:50)
[2023-05-23] MEDS ORDERED: PATIROMER SORBITEX CALCIUM 8.4 GM POWDER PACKET (VELTASSA) PO ONE (13:00)
[2023-05-24] VITALS (17 sets, daily range): BP systolic 129–148; BP diastolic 71–87; TEMP 97.2–98.3; O2SAT 81–95
[2023-05-24] MEDS: IPRATROPIUM 0.5MG/ALBUTEROL 2.5MG INH SOL UD 3ML (DUONEB) NEB SCH ×4 (01:24→20:47)
[2023-05-24 05:22] LABS: BASO % 0.1 % (0.0-1.0); HEMATOCRIT 45.5 % (42.0-52.0); HEMOGLOBIN 13.7 g/dl (13.5-17.5); LYMPH # 0.2 10^3/uL (1.5-5.0); LYMPH % 2.1 % (24.0-44.0); MEAN CORPUSCULAR HEMOGLOBIN 31.6 pg (27.0-33.0); MEAN CORPUSCULAR HGB CONC 30.1 g/dl (32.0-36.5); MEAN CORPUSCULAR VOLUME 105.1 fl (80.0-96.0); MONO # 0.4 10^3/uL (0.0-0.8); MONO % 4.1 % (2.0-8.0); NEUTROPHILS # 8.5 10^3/uL (1.5-8.5); NEUTROPHILS % 92.7 % (36.0-66.0); PLATELET COUNT, AUTOMATED 113 10^3/uL (150-450); RED BLOOD COUNT 4.33 10^6/uL (4.30-6.10); WHITE BLOOD COUNT 9.1 10^3/uL (4.0-10.0)
[2023-05-24] MEDS: HEPARIN SOD (PORCINE) 5000UNITS/ML 1ML VIAL/SYRINGE SC SCH ×4 (05:28→21:12)
[2023-05-24 05:52] LABS: BLOOD UREA NITROGEN 33 MG/DL (9-23); CALCIUM LEVEL 8.4 MG/DL (8.3-10.6); CARBON DIOXIDE LEVEL > 40.0 MMOL/L (20-31); CHLORIDE LEVEL 97 MMOL/L (98-107); CREATININE FOR GFR 0.84 MG/DL (0.70-1.30); GLOMERULAR FILTRATION RATE > 60.0 (>42); GLUCOSE, FASTING 147 MG/DL (74-106); MAGNESIUM LEVEL 1.9 MG/DL (1.8-2.4); POTASSIUM SERUM 4.9 MMOL/L (3.5-5.1); SODIUM LEVEL 139 MMOL/L (136-145)
[2023-05-24] MEDS: ADVAIR HFA 230/21MCG INHALER INH SCH ×2 (07:16→20:47)
[2023-05-24] MEDS: MONTELUKAST 10 MG TAB PO SCH (09:57)
[2023-05-24] MEDS: OSELTAMIVIR PHOSPHATE 75 MG CAP (TAMIFLU) PO SCH ×2 (09:57→20:29)
[2023-05-24] MEDS: OXYMETAZOLINE 0.05% NASAL SPRAY (AFRIN) SCH ×2 (09:58→20:29)
[2023-05-24] MEDS: methylPREDNISolone 40MG 1ML VIAL IV SCH ×2 (09:58→20:29)
[2023-05-24] MEDS: DOXYCYCLINE HYCLATE 100MG TABLET PO SCH ×2 (09:58→20:29)
[2023-05-24] MEDS ORDERED: NITROGLYCERIN 2% OINT 1 GM *U/D* PKT TOP ONE (10:05)
[2023-05-25] VITALS (9 sets, daily range): BP systolic 114–150; BP diastolic 68–81; TEMP 97.6–98.1; O2SAT 89–97
[2023-05-25] MEDS: IPRATROPIUM 0.5MG/ALBUTEROL 2.5MG INH SOL UD 3ML (DUONEB) NEB SCH ×4 (01:32→19:08)
[2023-05-25 05:21] LABS: BLOOD UREA NITROGEN 27 MG/DL (9-23); CALCIUM LEVEL 8.3 MG/DL (8.3-10.6); CARBON DIOXIDE LEVEL 40 MMOL/L (20-31); CHLORIDE LEVEL 97 MMOL/L (98-107); CREATININE FOR GFR 0.78 MG/DL (0.70-1.30); GLOMERULAR FILTRATION RATE > 60.0 (>42); GLUCOSE, FASTING 118 MG/DL (74-106); MAGNESIUM LEVEL 1.9 MG/DL (1.8-2.4); POTASSIUM SERUM 5.2 MMOL/L (3.5-5.1); SODIUM LEVEL 137 MMOL/L (136-145)
[2023-05-25] MEDS: HEPARIN SOD (PORCINE) 5000UNITS/ML 1ML VIAL/SYRINGE SC SCH ×3 (06:15→22:00)
[2023-05-25 06:33] LABS: BASO % 0.1 % (0.0-1.0); HEMATOCRIT 47.8 % (42.0-52.0); HEMOGLOBIN 14.2 g/dl (13.5-17.5); LYMPH # 0.4 10^3/uL (1.5-5.0); LYMPH % 4.3 % (24.0-44.0); MEAN CORPUSCULAR HEMOGLOBIN 31.6 pg (27.0-33.0); MEAN CORPUSCULAR HGB CONC 29.7 g/dl (32.0-36.5); MEAN CORPUSCULAR VOLUME 106.2 fl (80.0-96.0); MONO # 0.4 10^3/uL (0.0-0.8); MONO % 4.9 % (2.0-8.0); NEUTROPHILS # 7.2 10^3/uL (1.5-8.5); NEUTROPHILS % 89.6 % (36.0-66.0); PLATELET COUNT, AUTOMATED 116 10^3/uL (150-450); WHITE BLOOD COUNT 8.1 10^3/uL (4.0-10.0)
[2023-05-25] MEDS: ADVAIR HFA 230/21MCG INHALER INH SCH ×2 (07:47→19:08)
[2023-05-25] MEDS: OSELTAMIVIR PHOSPHATE 75 MG CAP (TAMIFLU) PO SCH ×3 (09:05→23:05)
[2023-05-25] MEDS: methylPREDNISolone 40MG 1ML VIAL IV SCH ×2 (09:05→23:06)
[2023-05-25] MEDS: MONTELUKAST 10 MG TAB PO SCH (09:05)
[2023-05-25] MEDS ORDERED: PATIROMER SORBITEX CALCIUM 8.4 GM POWDER PACKET (VELTASSA) PO ONE (11:00)
[2023-05-25] MEDS: IPRATROPIUM 0.5MG/ALBUTEROL 2.5MG INH SOL UD 3ML (DUONEB) NEB PRN (16:35)
[2023-05-26] VITALS (11 sets, daily range): BP systolic 119–168; BP diastolic 62–81; TEMP 96.9–98.4; O2SAT 86–97
[2023-05-26] MEDS: IPRATROPIUM 0.5MG/ALBUTEROL 2.5MG INH SOL UD 3ML (DUONEB) NEB SCH ×4 (01:13→19:40)
[2023-05-26 04:46] LABS: BASO % 0.1 % (0.0-1.0); HEMATOCRIT 45.3 % (42.0-52.0); HEMOGLOBIN 13.5 g/dl (13.5-17.5); LYMPH # 0.2 10^3/uL (1.5-5.0); LYMPH % 2.5 % (24.0-44.0); MEAN CORPUSCULAR HGB CONC 29.8 g/dl (32.0-36.5); MEAN CORPUSCULAR VOLUME 103.9 fl (80.0-96.0); MONO # 0.3 10^3/uL (0.0-0.8); MONO % 3.2 % (2.0-8.0); NEUTROPHILS # 7.3 10^3/uL (1.5-8.5); NEUTROPHILS % 93.2 % (36.0-66.0); PLATELET COUNT, AUTOMATED 115 10^3/uL (150-450); RED BLOOD COUNT 4.36 10^6/uL (4.30-6.10); WHITE BLOOD COUNT 7.9 10^3/uL (4.0-10.0)
[2023-05-26 05:11] LABS: BLOOD UREA NITROGEN 26 MG/DL (9-23); CALCIUM LEVEL 8.2 MG/DL (8.3-10.6); CARBON DIOXIDE LEVEL > 40.0 MMOL/L (20-31); CHLORIDE LEVEL 98 MMOL/L (98-107); CREATININE FOR GFR 0.79 MG/DL (0.70-1.30); GLOMERULAR FILTRATION RATE > 60.0 (>42); GLUCOSE, FASTING 130 MG/DL (74-106); POTASSIUM SERUM 4.7 MMOL/L (3.5-5.1); SODIUM LEVEL 141 MMOL/L (136-145)
[2023-05-26] MEDS: HEPARIN SOD (PORCINE) 5000UNITS/ML 1ML VIAL/SYRINGE SC SCH ×3 (05:22→21:15)
[2023-05-26] MEDS: ADVAIR HFA 230/21MCG INHALER INH SCH ×2 (07:24→19:40)
[2023-05-26 07:58] LABS: VENOUS BASE EXCESS 15.4 (-2.0-2.0); VENOUS HCO3 43.5 MMOL/L (23.0-27.0); VENOUS PARTIAL PRESSURE CO2 67.1 mmHg (38.0-50.0); VENOUS PARTIAL PRESSURE O2 141.6 mmHg (30.0-50.0); VENOUS STANDARD HCO3 39.5 MMOL/L; VENOUS TOTAL CO2 45.6 MMOL/L (24.0-28.0)
[2023-05-26] MEDS: methylPREDNISolone 40MG 1ML VIAL IV SCH ×2 (09:15→20:50)
[2023-05-26] MEDS: MONTELUKAST 10 MG TAB PO SCH (09:15)
[2023-05-26] MEDS ORDERED: AZITHROMYCIN 250MG TABLET PO SCH (10:50)
[2023-05-26] MEDS: cefTRIAXone SOD 2 GM in D5W MINI-BAG PLUS 50 ML IV SCH (12:32)
[2023-05-26] MEDS ORDERED: SENOKOT S TAB PO PRN (15:10)
[2023-05-27] VITALS (23 sets, daily range): BP systolic 107–139; BP diastolic 57–76; TEMP 97.3–98.4; O2SAT 89–99
[2023-05-27] MEDS: IPRATROPIUM 0.5MG/ALBUTEROL 2.5MG INH SOL UD 3ML (DUONEB) NEB SCH ×4 (01:09→19:29)
[2023-05-27] MEDS: HEPARIN SOD (PORCINE) 5000UNITS/ML 1ML VIAL/SYRINGE SC SCH ×3 (06:31→22:10)
[2023-05-27 07:34] LABS: BASO % 0.1 % (0.0-1.0); HEMATOCRIT 44.2 % (42.0-52.0); HEMOGLOBIN 13.4 g/dl (13.5-17.5); LYMPH # 0.3 10^3/uL (1.5-5.0); LYMPH % 3.1 % (24.0-44.0); MEAN CORPUSCULAR HEMOGLOBIN 31.7 pg (27.0-33.0); MEAN CORPUSCULAR HGB CONC 30.3 g/dl (32.0-36.5); MEAN CORPUSCULAR VOLUME 104.5 fl (80.0-96.0); MONO # 0.4 10^3/uL (0.0-0.8); MONO % 4.1 % (2.0-8.0); NEUTROPHILS # 7.8 10^3/uL (1.5-8.5); NEUTROPHILS % 92.1 % (36.0-66.0); PLATELET COUNT, AUTOMATED 110 10^3/uL (150-450); RED BLOOD COUNT 4.23 10^6/uL (4.30-6.10); WHITE BLOOD COUNT 8.5 10^3/uL (4.0-10.0)
[2023-05-27] MEDS: ADVAIR HFA 230/21MCG INHALER INH SCH ×2 (07:53→19:29)
[2023-05-27 07:58] LABS: BLOOD UREA NITROGEN 24 MG/DL (9-23); CALCIUM LEVEL 8.2 MG/DL (8.3-10.6); CARBON DIOXIDE LEVEL > 40.0 MMOL/L (20-31); CHLORIDE LEVEL 94 MMOL/L (98-107); CREATININE FOR GFR 0.76 MG/DL (0.70-1.30); GLOMERULAR FILTRATION RATE > 60.0 (>42); GLUCOSE, FASTING 108 MG/DL (74-106); MAGNESIUM LEVEL 2.1 MG/DL (1.8-2.4); POTASSIUM SERUM 4.6 MMOL/L (3.5-5.1); SODIUM LEVEL 139 MMOL/L (136-145)
[2023-05-27] MEDS: methylPREDNISolone 40MG 1ML VIAL IV SCH ×2 (08:38→22:10)
[2023-05-27] MEDS: MONTELUKAST 10 MG TAB PO SCH (08:38)
[2023-05-27] MEDS: IPRATROPIUM 0.5MG/ALBUTEROL 2.5MG INH SOL UD 3ML (DUONEB) NEB PRN (11:37)
[2023-05-27] MEDS: cefTRIAXone SOD 2 GM in D5W MINI-BAG PLUS 50 ML IV SCH (12:41)
[2023-05-28] VITALS (9 sets, daily range): BP systolic 137–146; BP diastolic 72–78; TEMP 97–98.1; O2SAT 91–99
[2023-05-28] MEDS: IPRATROPIUM 0.5MG/ALBUTEROL 2.5MG INH SOL UD 3ML (DUONEB) NEB SCH ×3 (01:52→13:33)
[2023-05-28] MEDS: HEPARIN SOD (PORCINE) 5000UNITS/ML 1ML VIAL/SYRINGE SC SCH (06:14)
[2023-05-28 07:04] LABS: BASO % 0.1 % (0.0-1.0); HEMATOCRIT 46.2 % (42.0-52.0); HEMOGLOBIN 13.7 g/dl (13.5-17.5); LYMPH # 0.2 10^3/uL (1.5-5.0); LYMPH % 2.9 % (24.0-44.0); MEAN CORPUSCULAR HEMOGLOBIN 31.1 pg (27.0-33.0); MEAN CORPUSCULAR HGB CONC 29.7 g/dl (32.0-36.5); MEAN CORPUSCULAR VOLUME 104.8 fl (80.0-96.0); MONO # 0.3 10^3/uL (0.0-0.8); MONO % 3.3 % (2.0-8.0); PLATELET COUNT, AUTOMATED 107 10^3/uL (150-450); RED BLOOD COUNT 4.41 10^6/uL (4.30-6.10); WHITE BLOOD COUNT 7.6 10^3/uL (4.0-10.0)
[2023-05-28 07:30] LABS: BLOOD UREA NITROGEN 23 MG/DL (9-23); CALCIUM LEVEL 8.2 MG/DL (8.3-10.6); CARBON DIOXIDE LEVEL > 40.0 MMOL/L (20-31); CHLORIDE LEVEL 94 MMOL/L (98-107); CREATININE FOR GFR 0.74 MG/DL (0.70-1.30); GLOMERULAR FILTRATION RATE > 60.0 (>42); GLUCOSE, FASTING 124 MG/DL (74-106); MAGNESIUM LEVEL 2.2 MG/DL (1.8-2.4); POTASSIUM SERUM 5.1 MMOL/L (3.5-5.1); SODIUM LEVEL 138 MMOL/L (136-145)
[2023-05-28] MEDS ORDERED: FORMOTEROL FUMARATE 20 MCG/2 ML INHALATION SOLUTION (PERFOROMIST) INH SCH (08:00)
[2023-05-28] MEDS: ADVAIR HFA 230/21MCG INHALER INH SCH (08:00)
[2023-05-28] MEDS ORDERED: BUDESONIDE 0.5 MG/2 ML INHALATION SUSPENSION NEB SCH (08:00)
[2023-05-28] MEDS: MONTELUKAST 10 MG TAB PO SCH (09:38)
[2023-05-28] MEDS: methylPREDNISolone 40MG 1ML VIAL IV SCH (09:38)
[2023-05-28] MEDS ORDERED: PRED10TA2 PO (12:26)
== END 2023-05-28 14:07 | disposition home health service (06) | DRG 189 ==
LOC: M ED 08:56 → EDBD 08:56 → M ED INP 11:42 → ENRESERV 12:14 → M ICU 13:16 → M PCU 05-26 14:09
PROVIDERS: ADMIT Internal Medicine Pulmonary Disease; ATTEND Internal Medicine Pulmonary Disease
DX: J96.01 Acute respiratory failure with hypoxia (principal); J44.1 Chronic obstructive pulmonary disease with (acute) exacerbation; G93.40 Encephalopathy, unspecified; J96.02 Acute respiratory failure with hypercapnia; Z99.81 Dependence on supplemental oxygen; E87.5 Hyperkalemia; K21.9 Gastro-esophageal reflux disease without esophagitis; F17.200 Nicotine dependence, unspecified, uncomplicated; I10 Essential (primary) hypertension; G47.33 Obstructive sleep apnea (adult) (pediatric); E78.5 Hyperlipidemia, unspecified; K22.70 Barrett's esophagus without dysplasia; J10.1 Influenza due to other identified influenza virus with other respiratory manifestations; Z79.899 Other long term (current) drug therapy; Z91.013 Allergy to seafood; Z91.018 Allergy to other foods; Z20.822 Contact with and (suspected) exposure to COVID-19

== ENCOUNTER 2023-06-22 05:15 | Inpatient (IN) | payer MEDICARE, MEDICAID ==
[~2023-06-22] VITALS: Ht 170.2 cm; Wt 104.9 kg
[2023-06-22] VITALS (54 sets, daily range): BP systolic 77–124; BP diastolic 46–74; TEMP 97.5–98.4; O2SAT 88–100
[~2023-06-22 05:15] MED LIST changes: +AUGM500T34 PO; +FLUT1BLS3 INH; -MIRA1POW3 PO; +MIRA33506 PO; +PRED10PA2 PO
[2023-06-22] MEDS: LIDOCAINE 2% 5ML JELLY UROJET TOP ONE (05:30)
[2023-06-22] MEDS: dexAMETHasone 20MG/5ML VIAL IV ONE (05:30)
[2023-06-22] MEDS: FUROSEMIDE 40MG/4ML VIAL IV ONE (06:18)
[2023-06-22] MEDS: cefTRIAXone SOD 2 GM in D5W MINI-BAG PLUS 50 ML IV ONE (06:18)
[2023-06-22] MEDS: NS 1,983 ML in IV 1 EA IV STA (06:42)
[2023-06-22 06:43] LABS: APPEARANCE, URINE CLEAR (CLEAR); BACTERIA, URINE AUTO NEGATIVE (NEGATIVE); BILIRUBIN, URINE AUTO NEGATIVE (NEGATIVE); BLOOD, URINE BLOOD NEGATIVE (NEGATIVE); COLOR, URINE AMBER (YELLOW); GLUCOSE, URINE (UA) AUTO NEGATIVE (NEGATIVE); KETONE, URINE AUTO NEGATIVE (NEGATIVE); LEUKOCYTE ESTERASE, URINE AUTO NEGATIVE (NEGATIVE); NITRITE, URINE AUTO NEGATIVE (NEGATIVE); PROTEIN, URINE AUTO 1+ mg/dL (NEGATIVE); RBC, URINE AUTO 1 /HPF (0-3); SPECIFIC GRAVITY URINE AUTO 1.021 (1.002-1.035); SQUAMOUS EPITHELIAL CELL UR AU 0 /HPF (0-6); WBC, URINE AUTO 2 /HPF (0-3)
[2023-06-22 06:54] LABS: C REACTIVE PROTEIN QUANTITATIV 27.5 MG/DL (<1.0)
[2023-06-22 07:06] LABS: INR 1.2; PARTIAL THROMBOPLASTIN TIME 30.5 SECONDS (24.8-34.2); PROTHROMBIN TIME 14.8 SECONDS (12.5-14.5)
[2023-06-22 07:07] LABS: PROCALCITONIN 0.53 ng/ml
[2023-06-22 07:08] LABS: ALBUMIN 2.8 G/DL (3.2-5.2); BILIRUBIN,DIRECT 0.2 MG/DL (<0.4); BILIRUBIN,TOTAL 0.5 MG/DL (0.3-1.2); CALCIUM LEVEL 8.7 MG/DL (8.3-10.6); CREATININE FOR GFR 3.45 MG/DL (0.70-1.30); GLOMERULAR FILTRATION RATE 18.5 (>42); POTASSIUM SERUM 5.6 MMOL/L (3.5-5.1); TOTAL PROTEIN 5.9 G/DL (5.7-8.2)
[2023-06-22 07:18] LABS: BASO % 0.2 % (0.0-1.0); EOS % 0.1 % (0.0-3.0); HEMATOCRIT 47.7 % (42.0-52.0); HEMOGLOBIN 14.5 g/dl (13.5-17.5); LYMPH # 0.4 10^3/uL (1.5-5.0); LYMPH % 3.9 % (24.0-44.0); MEAN CORPUSCULAR HEMOGLOBIN 32.4 pg (27.0-33.0); MEAN CORPUSCULAR HGB CONC 30.4 g/dl (32.0-36.5); MEAN CORPUSCULAR VOLUME 106.5 fl (80.0-96.0); MONO # 0.9 10^3/uL (0.0-0.8); MONO % 8.9 % (2.0-8.0); NEUTROPHILS # 9.1 10^3/uL (1.5-8.5); NEUTROPHILS % 86.4 % (36.0-66.0); PLATELET COUNT, AUTOMATED 168 10^3/uL (150-450); RED BLOOD COUNT 4.48 10^6/uL (4.30-6.10); WHITE BLOOD COUNT 10.5 10^3/uL (4.0-10.0)
[2023-06-22] MEDS: NS IV ONE (07:38)
[2023-06-22] MEDS ORDERED: NOREPINEPHRINE 4MG IN D5 250ML 4 MG in IV 1 EA IV SCH (08:05)
[2023-06-22 08:08] LABS: ABG BASE EXCESS 0.4 (-2.0-2.0); ABG HCO3 29.2 MMOL/L (22.0-26.0); ABG O2 SATURATION 93.4 % (95.0-99.0); ABG PARTIAL PRESSURE O2 77.3 mmHg (75.0-100.0); ABG STANDARD HCO3 24.7 MMOL/L. (22.0-26.0); ABG TOTAL CO2 31.2 MMOL/L (23.0-31.0); ABG pH (ARTERIAL) 7.267 UNITS (7.350-7.450)
[2023-06-22 08:11] LABS: ABG PARTIAL PRESSURE CO2 65.4 mmHg (35.0-45.0)
[2023-06-22] MEDS ORDERED: MED REC IN PROGRESS XX SCH (08:35)
[2023-06-22] MEDS ORDERED: VANCOMYCIN HCL 1,000 MG, VIAL MATE ADAPTER 1 EACH in D5W 250 ML IV SCH (08:45)
[2023-06-22] MEDS: HYDROCORTISONE 100MG/2ML VIAL IV ONE (08:55)
[2023-06-22] MEDS: NOREPINEPHRINE 4MG IN D5 250ML 4 MG in IV 1 EA IV SCH (09:12)
[2023-06-22] MEDS: BUDESONIDE 0.5 MG/2 ML INHALATION SUSPENSION NEB SCH (09:59)
[2023-06-22] MEDS ORDERED: VASOPRESSIN INJ 20 UNITS in NS 500 ML IV SCH (10:00)
[2023-06-22] MEDS: PIPERACILLIN/TAZOBACTAM SOD 3.375 GM in D5W MINI-BAG PLUS 50 ML IV SCH (10:55)
[2023-06-22 11:22] LABS: CENTRAL VEN BASE EXCESS -4.5
[2023-06-22] MEDS: ALBUTEROL SULFATE 2.5MG/0.5ML INH NEB SOLN NEB SCH (11:25)
[2023-06-22 11:27] LABS: BASO % 0.1 % (0.0-1.0); EOS % 0.1 % (0.0-3.0); HEMATOCRIT 45.8 % (42.0-52.0); HEMOGLOBIN 13.8 g/dl (13.5-17.5); LYMPH # 0.2 10^3/uL (1.5-5.0); MEAN CORPUSCULAR HEMOGLOBIN 32.5 pg (27.0-33.0); MEAN CORPUSCULAR HGB CONC 30.1 g/dl (32.0-36.5); MEAN CORPUSCULAR VOLUME 107.8 fl (80.0-96.0); MONO # 0.2 10^3/uL (0.0-0.8); MONO % 2.4 % (2.0-8.0); PLATELET COUNT, AUTOMATED 157 10^3/uL (150-450); RED BLOOD COUNT 4.25 10^6/uL (4.30-6.10); WHITE BLOOD COUNT 9.4 10^3/uL (4.0-10.0)
[2023-06-22 11:41] LABS: ABG HCO3 25.4 MMOL/L (22.0-26.0); ABG O2 SATURATION 96.8 % (95.0-99.0); ABG PARTIAL PRESSURE CO2 59.9 mmHg (35.0-45.0); ABG STANDARD HCO3 21.9 MMOL/L. (22.0-26.0); ABG TOTAL CO2 27.2 MMOL/L (23.0-31.0)
[2023-06-22 11:42] LABS: ABG pH (ARTERIAL) 7.245 UNITS (7.350-7.450)
[2023-06-22 11:44] LABS: INR 1.29; PROTHROMBIN TIME 15.7 SECONDS (12.5-14.5)
[2023-06-22] MEDS ORDERED: MED REC CURRENTLY UNOBTAINABLE XX SCH (12:00)
[2023-06-22 12:02] LABS: ALBUMIN 2.5 G/DL (3.2-5.2); BILIRUBIN,TOTAL 0.3 MG/DL (0.3-1.2); CALCIUM LEVEL 7.5 MG/DL (8.3-10.6); CREATININE FOR GFR 3.2 MG/DL (0.70-1.30); GLOMERULAR FILTRATION RATE 20.2 (>42); MAGNESIUM LEVEL 1.8 MG/DL (1.8-2.4); POTASSIUM SERUM 5.6 MMOL/L (3.5-5.1); TOTAL PROTEIN 5.5 G/DL (5.7-8.2)
[2023-06-22] MEDS: VANCOMYCIN HCL 1,000 MG, VIAL MATE ADAPTER 1 EACH in D5W 250 ML IV ONE ×2 (12:10→12:47)
[2023-06-22 12:27] LABS: CK-MB VALUE MASS 7.4 NG/ML (<3.6)
[2023-06-22 12:37] LABS: MB/CK RELATIVE INDEX 6.54 (< OR =4)
[2023-06-22] MEDS: CALCIUM GLUCONATE 1,000 MG in D5W MINI-BAG PLUS 100 ML IV ONE (12:47)
[2023-06-22] MEDS: HumuLIN R (REGULAR) INSULIN (NovoLIN R) **100U/ML** PER UNIT IV STA (12:48)
[2023-06-22] MEDS: DEXTROSE 50% 50ML SYRINGE IV STA (12:48)
[2023-06-22] MEDS: SODIUM BICARBONATE 8.4% INJ 50ML SYRINGE IV STA (12:50)
[2023-06-22] MEDS: VASOPRESSIN INJ 20 UNITS in NS 500 ML IV SCH ×2 (13:20→19:00)
[2023-06-22] MEDS: PANTOPRAZOLE 40MG VIAL IV SCH (13:20)
[2023-06-22] MEDS ORDERED: VANCOMYCIN INTERMITTENT/PULSE DOSING BY CLINICAL PHARMACIST PER DOSING PROTOCOL XX SCH (13:35)
[2023-06-22] MEDS ORDERED: MIRA33506 PO (14:34)
[2023-06-22] MEDS ORDERED: LACT20EL PO (14:34)
[2023-06-22] MEDS ORDERED: BACL10TA2 PO (14:34)
[2023-06-22] MEDS ORDERED: MED REC COMMENT (14:35)
[2023-06-22] MEDS ORDERED: HOME MED LIST COMPLETE! XX SCH (14:40)
[2023-06-22] MEDS: FUROSEMIDE 100MG/10ML VIAL IV ONE ×2 (15:21→20:59)
[2023-06-22 16:18] LABS: ABG BASE EXCESS -0.2 (-2.0-2.0); ABG HCO3 29.5 MMOL/L (22.0-26.0); ABG O2 SATURATION 81.8 % (95.0-99.0); ABG PARTIAL PRESSURE O2 52.4 mmHg (75.0-100.0); ABG STANDARD HCO3 23.9 MMOL/L. (22.0-26.0); ABG TOTAL CO2 31.7 MMOL/L (23.0-31.0)
[2023-06-22 16:41] LABS: ALBUMIN 2.4 G/DL (3.2-5.2); BILIRUBIN,TOTAL 0.3 MG/DL (0.3-1.2); CALCIUM LEVEL 7.9 MG/DL (8.3-10.6); CK-MB VALUE MASS 11.6 NG/ML (<3.6); CREATININE FOR GFR 3.1 MG/DL (0.70-1.30); MAGNESIUM LEVEL 1.9 MG/DL (1.8-2.4); MB/CK RELATIVE INDEX 11.26 (< OR =4); POTASSIUM SERUM 5.3 MMOL/L (3.5-5.1); TOTAL PROTEIN 5.5 G/DL (5.7-8.2)
[2023-06-22 18:03] LABS: ABG BASE EXCESS 1.7 (-2.0-2.0); ABG HCO3 30.2 MMOL/L (22.0-26.0); ABG O2 SATURATION 93.2 % (95.0-99.0); ABG PARTIAL PRESSURE O2 72.6 mmHg (75.0-100.0); ABG STANDARD HCO3 25.8 MMOL/L. (22.0-26.0); ABG TOTAL CO2 32.2 MMOL/L (23.0-31.0); ABG pH (ARTERIAL) 7.285 UNITS (7.350-7.450)
[2023-06-22] MEDS: ASPIRIN 300 MG SUPP PR ONE (18:41)
[2023-06-22] MEDS: HEPARIN SOD (PORCINE) 5000UNITS/ML 1ML VIAL/SYRINGE SC SCH (21:56)
[2023-06-22] MEDS ORDERED: LORazepam 2 MG/ML 1ML VIAL As Ordered ONE (22:09)
[2023-06-22 22:25] LABS: ABG BASE EXCESS 1.9 (-2.0-2.0); ABG HCO3 28.9 MMOL/L (22.0-26.0); ABG O2 SATURATION 93.9 % (95.0-99.0); ABG PARTIAL PRESSURE CO2 55.5 mmHg (35.0-45.0); ABG PARTIAL PRESSURE O2 73.9 mmHg (75.0-100.0); ABG STANDARD HCO3 26.1 MMOL/L. (22.0-26.0); ABG TOTAL CO2 30.6 MMOL/L (23.0-31.0); ABG pH (ARTERIAL) 7.335 UNITS (7.350-7.450)
[2023-06-23] VITALS (87 sets, daily range): BP systolic 71–130; BP diastolic 43–90; TEMP 97–98.6; O2SAT 84–99
[2023-06-23 00:20] LABS: CREATININE FOR GFR 2.86 MG/DL (0.70-1.30); POTASSIUM SERUM 4.9 MMOL/L (3.5-5.1)
[2023-06-23 05:12] LABS: HEMATOCRIT 43.2 % (42.0-52.0); HEMOGLOBIN 13.1 g/dl (13.5-17.5); LYMPH # 0.3 10^3/uL (1.5-5.0); LYMPH % 2.5 % (24.0-44.0); MEAN CORPUSCULAR HEMOGLOBIN 31.6 pg (27.0-33.0); MEAN CORPUSCULAR HGB CONC 30.3 g/dl (32.0-36.5); MEAN CORPUSCULAR VOLUME 104.3 fl (80.0-96.0); MONO # 0.6 10^3/uL (0.0-0.8); MONO % 5.3 % (2.0-8.0); NEUTROPHILS # 10.1 10^3/uL (1.5-8.5); NEUTROPHILS % 91.7 % (36.0-66.0); PLATELET COUNT, AUTOMATED 146 10^3/uL (150-450); RED BLOOD COUNT 4.14 10^6/uL (4.30-6.10)
[2023-06-23 05:38] LABS: CK-MB VALUE MASS 5.8 NG/ML (<3.6)
[2023-06-23 05:40] LABS: ALBUMIN 2.6 G/DL (3.2-5.2); BILIRUBIN,TOTAL 0.4 MG/DL (0.3-1.2); CALCIUM LEVEL 8.3 MG/DL (8.3-10.6); CREATININE FOR GFR 2.75 MG/DL (0.70-1.30); GLOMERULAR FILTRATION RATE 24.1 (>42); MAGNESIUM LEVEL 1.8 MG/DL (1.8-2.4); MB/CK RELATIVE INDEX 9.35 (< OR =4); TOTAL PROTEIN 5.5 G/DL (5.7-8.2)
[2023-06-23 05:53] LABS: ABG BASE EXCESS 2.2 (-2.0-2.0); ABG HCO3 28.8 MMOL/L (22.0-26.0); ABG O2 SATURATION 95.5 % (95.0-99.0); ABG PARTIAL PRESSURE CO2 52.9 mmHg (35.0-45.0); ABG PARTIAL PRESSURE O2 83.2 mmHg (75.0-100.0); ABG STANDARD HCO3 26.4 MMOL/L. (22.0-26.0); ABG TOTAL CO2 30.4 MMOL/L (23.0-31.0); ABG pH (ARTERIAL) 7.354 UNITS (7.350-7.450)
[2023-06-23] MEDS: FUROSEMIDE 100MG/10ML VIAL IV ONE (10:18)
[2023-06-23 10:35] LABS: VANCOMYCIN RANDOM 14.7 UG/ML
[2023-06-23] MEDS ORDERED: VANCOMYCIN HCL 750 MG, VIAL MATE ADAPTER 1 EACH in D5W 250 ML IV SCH (12:00)
[2023-06-23 12:31] LABS: CK-MB VALUE MASS 2.9 NG/ML (<3.6)
[2023-06-23 12:33] LABS: ALBUMIN 2.7 G/DL (3.2-5.2); BILIRUBIN,TOTAL 0.4 MG/DL (0.3-1.2); CALCIUM LEVEL 8.3 MG/DL (8.3-10.6); CREATININE FOR GFR 2.46 MG/DL (0.70-1.30); GLOMERULAR FILTRATION RATE 27.4 (>42); MB/CK RELATIVE INDEX 5.68 (< OR =4); TOTAL PROTEIN 5.4 G/DL (5.7-8.2)
[2023-06-23] MEDS: NICOTINE 14 MG/24 HR TRANSDERMAL TD SCH (14:50)
[2023-06-24] VITALS (34 sets, daily range): BP systolic 86–137; BP diastolic 54–84; TEMP 97.4–98.9; O2SAT 88–97
[2023-06-24 04:41] LABS: BASO % 0.1 % (0.0-1.0); HEMATOCRIT 39.1 % (42.0-52.0); LYMPH # 0.6 10^3/uL (1.5-5.0); LYMPH % 5.5 % (24.0-44.0); MEAN CORPUSCULAR HGB CONC 30.7 g/dl (32.0-36.5); MEAN CORPUSCULAR VOLUME 104.3 fl (80.0-96.0); MONO # 0.7 10^3/uL (0.0-0.8); MONO % 6.5 % (2.0-8.0); NEUTROPHILS % 87.5 % (36.0-66.0); PLATELET COUNT, AUTOMATED 117 10^3/uL (150-450); RED BLOOD COUNT 3.75 10^6/uL (4.30-6.10); WHITE BLOOD COUNT 10.2 10^3/uL (4.0-10.0)
[2023-06-24 05:06] LABS: CK-MB VALUE MASS 1.2 NG/ML (<3.6)
[2023-06-24 05:08] LABS: MB/CK RELATIVE INDEX 1.69 (< OR =4)
[2023-06-24 05:24] LABS: ALBUMIN 2.7 G/DL (3.2-5.2); BILIRUBIN,TOTAL 0.5 MG/DL (0.3-1.2); CALCIUM LEVEL 8.4 MG/DL (8.3-10.6); CREATININE FOR GFR 2.1 MG/DL (0.70-1.30); GLOMERULAR FILTRATION RATE 32.9 (>42); MAGNESIUM LEVEL 1.8 MG/DL (1.8-2.4); POTASSIUM SERUM 3.9 MMOL/L (3.5-5.1); TOTAL PROTEIN 5.3 G/DL (5.7-8.2)
[2023-06-24 05:52] LABS: ABG BASE EXCESS 5.2 (-2.0-2.0); ABG HCO3 29.1 MMOL/L (22.0-26.0); ABG PARTIAL PRESSURE CO2 40.5 mmHg (35.0-45.0); ABG PARTIAL PRESSURE O2 69.7 mmHg (75.0-100.0); ABG TOTAL CO2 30.4 MMOL/L (23.0-31.0); ABG pH (ARTERIAL) 7.475 UNITS (7.350-7.450)
[2023-06-24] MEDS: ASPIRIN 325 MG TAB PO SCH (07:53)
[2023-06-24] MEDS ORDERED: PATIROMER SORBITEX CALCIUM 8.4 GM POWDER PACKET (VELTASSA) PO SCH (12:00)
[2023-06-24] MEDS: cefTRIAXone SOD 1 GM in D5W MINI-BAG PLUS 50 ML IV SCH (12:01)
[2023-06-24] MEDS: FUROSEMIDE 20 MG TAB PO SCH (18:07)
[2023-06-24] MEDS: predniSONE 20 MG TAB PO SCH (18:07)
[2023-06-25] VITALS: BP 127/69; TEMP 97.9; O2SAT 92
[2023-06-25 04:00] VITALS: BP 118/58; TEMP 98.1; O2SAT 93
[2023-06-25 04:01] LABS: ABG BASE EXCESS 5.1 (-2.0-2.0); ABG O2 SATURATION 93.3 % (95.0-99.0); ABG PARTIAL PRESSURE CO2 57.1 mmHg (35.0-45.0); ABG PARTIAL PRESSURE O2 68.8 mmHg (75.0-100.0); ABG STANDARD HCO3 28.9 MMOL/L. (22.0-26.0); ABG TOTAL CO2 33.7 MMOL/L (23.0-31.0); ABG pH (ARTERIAL) 7.366 UNITS (7.350-7.450)
[2023-06-25 05:07] LABS: HEMATOCRIT 42.4 % (42.0-52.0); HEMOGLOBIN 12.8 g/dl (13.5-17.5); LYMPH # 0.2 10^3/uL (1.5-5.0); LYMPH % 2.2 % (24.0-44.0); MEAN CORPUSCULAR HEMOGLOBIN 32.3 pg (27.0-33.0); MEAN CORPUSCULAR HGB CONC 30.2 g/dl (32.0-36.5); MEAN CORPUSCULAR VOLUME 107.1 fl (80.0-96.0); MONO # 0.2 10^3/uL (0.0-0.8); NEUTROPHILS # 8.2 10^3/uL (1.5-8.5); NEUTROPHILS % 95.2 % (36.0-66.0); PLATELET COUNT, AUTOMATED 117 10^3/uL (150-450); RED BLOOD COUNT 3.96 10^6/uL (4.30-6.10); WHITE BLOOD COUNT 8.6 10^3/uL (4.0-10.0)
[2023-06-25 05:33] LABS: BILIRUBIN,TOTAL 0.6 MG/DL (0.3-1.2); CALCIUM LEVEL 8.1 MG/DL (8.3-10.6); CREATININE FOR GFR 1.3 MG/DL (0.70-1.30); GLOMERULAR FILTRATION RATE 57.1 (>42); MAGNESIUM LEVEL 1.8 MG/DL (1.8-2.4); MB/CK RELATIVE INDEX 3.44 (< OR =4); POTASSIUM SERUM 4.3 MMOL/L (3.5-5.1); TOTAL PROTEIN 6.1 G/DL (5.7-8.2)
[2023-06-25 08:05] VITALS: BP 141/74; TEMP 98.8; O2SAT 91
[2023-06-25] MEDS ORDERED: PRED20TA PO (08:34)
[2023-06-25] MEDS ORDERED: FURO20TA2 PO (08:34)
[2023-06-25] MEDS ORDERED: NICO14DI6 TOP (08:46)
[2023-06-25] MEDS ORDERED: ASPI-1 PO (08:46)
[2023-06-25] MEDS: NEOSPORIN OINT 0.9 GM PKT TOP ONE (08:58)
[2023-06-25] MEDS: FUROSEMIDE 20 MG TAB PO SCH (08:59)
== END 2023-06-25 14:05 | disposition home or self-care (01) | DRG 291 ==
LOC: EDBD 05:15 → M ED 05:15 → M ED INP 08:41 → M ICU 10:12
PROVIDERS: ADMIT Internal Medicine Critical Care Medicine; ATTEND Internal Medicine Critical Care Medicine
PROC: 30233J1 Transfusion of Nonautologous Serum Albumin into Peripheral Vein, Percutaneous Approach (ICD-10-PCS; principal; 2023-06-22)
PROC: B246ZZZ Ultrasonography of Right and Left Heart (ICD-10-PCS; 2023-06-22)
PROC: 02HV33Z Insertion of Infusion Device into Superior Vena Cava, Percutaneous Approach (ICD-10-PCS; 2023-06-23)
DX: R57.0 Cardiogenic shock (principal); J96.01 Acute respiratory failure with hypoxia; J96.02 Acute respiratory failure with hypercapnia; J44.1 Chronic obstructive pulmonary disease with (acute) exacerbation; N17.9 Acute kidney failure, unspecified; G93.40 Encephalopathy, unspecified; I13.0 Hypertensive heart and chronic kidney disease with heart failure and stage 1 through stage 4 chronic kidney disease, or unspecified chronic kidney disease; I95.9 Hypotension, unspecified; I50.810 Right heart failure, unspecified; I27.20 Pulmonary hypertension, unspecified; G47.33 Obstructive sleep apnea (adult) (pediatric); E87.5 Hyperkalemia; F17.200 Nicotine dependence, unspecified, uncomplicated; K21.9 Gastro-esophageal reflux disease without esophagitis; K22.70 Barrett's esophagus without dysplasia; E78.5 Hyperlipidemia, unspecified; Z79.899 Other long term (current) drug therapy; Z91.013 Allergy to seafood; Z91.018 Allergy to other foods; Z20.822 Contact with and (suspected) exposure to COVID-19

== ENCOUNTER 2023-07-06 03:29 | Emergency (ER) | payer MEDICARE, MEDICAID ==
[~2023-07-06] VITALS: Ht 167.6 cm; Wt 105.0 kg
[~2023-07-06 03:29] MED LIST changes: +ASPI-1 PO; +BACL10TA2 PO; +LACT20EL PO; +MED REC COMMENT; +NICO14DI6 TOP; +PRED20TA PO
[2023-07-06 04:41] LABS: HEMOGLOBIN 12.1 g/dl (13.5-17.5); LYMPH # 0.2 10^3/uL (1.5-5.0); LYMPH % 2.1 % (24.0-44.0); MEAN CORPUSCULAR HEMOGLOBIN 31.8 pg (27.0-33.0); MEAN CORPUSCULAR HGB CONC 30.3 g/dl (32.0-36.5); MEAN CORPUSCULAR VOLUME 105.3 fl (80.0-96.0); MONO # 0.2 10^3/uL (0.0-0.8); MONO % 1.8 % (2.0-8.0); NEUTROPHILS # 8.9 10^3/uL (1.5-8.5); NEUTROPHILS % 95.3 % (36.0-66.0); PLATELET COUNT, AUTOMATED 154 10^3/uL (150-450); WHITE BLOOD COUNT 9.3 10^3/uL (4.0-10.0)
[2023-07-06 05:00] LABS: INR 1.02; PARTIAL THROMBOPLASTIN TIME 30.5 SECONDS (24.8-34.2); PROTHROMBIN TIME 13.1 SECONDS (12.5-14.5)
[2023-07-06 05:11] LABS: CK-MB VALUE MASS 2.9 NG/ML (<3.6)
[2023-07-06 05:13] LABS: BLOOD UREA NITROGEN 30 MG/DL (9-23); CALCIUM LEVEL 8.2 MG/DL (8.3-10.6); CARBON DIOXIDE LEVEL 38 MMOL/L (20-31); CHLORIDE LEVEL 100 MMOL/L (98-107); CREATININE FOR GFR 0.97 MG/DL (0.70-1.30); GLOMERULAR FILTRATION RATE > 60.0 (>42); GLUCOSE, FASTING 130 MG/DL (74-106); POTASSIUM SERUM 5.4 MMOL/L (3.5-5.1); SODIUM LEVEL 141 MMOL/L (136-145)
[2023-07-06 05:26] LABS: CPK CREATINE PHOSPHOKINASE 49 U/L (46-171); MB/CK RELATIVE INDEX 5.91 (< OR =4)
[2023-07-06 06:51] LABS: CK-MB VALUE MASS 2.8 NG/ML (<3.6); MB/CK RELATIVE INDEX 8.48 (< OR =4)
[2023-07-06 08:01] VITALS: BP 123/59; TEMP 97.5; O2SAT 95
== END 2023-07-06 08:21 | disposition home or self-care (01) ==
LOC: M ED 03:29
DX: L76.22 Postprocedural hemorrhage of skin and subcutaneous tissue following other procedure (principal); I25.10 Atherosclerotic heart disease of native coronary artery without angina pectoris; I10 Essential (primary) hypertension; K59.00 Constipation, unspecified; K21.9 Gastro-esophageal reflux disease without esophagitis; J45.909 Unspecified asthma, uncomplicated; F17.200 Nicotine dependence, unspecified, uncomplicated; Z79.899 Other long term (current) drug therapy; Z91.018 Allergy to other foods; Z91.013 Allergy to seafood

== ENCOUNTER 2023-07-20 18:29 | Inpatient (IN) | payer MEDICARE, MEDICAID ==
[~2023-07-20] VITALS: Ht 170.2 cm; Wt 104.2 kg
[2023-07-20] MEDS: IPRATROPIUM 0.5MG/ALBUTEROL 2.5MG INH SOL UD 3ML (DUONEB) NEB PRN (18:52)
[2023-07-20 19:04] LABS: ABG BASE EXCESS 0.6 (-2.0-2.0); ABG HCO3 28.7 MMOL/L (22.0-26.0); ABG O2 SATURATION 99.1 % (95.0-99.0); ABG PARTIAL PRESSURE CO2 61.6 mmHg (35.0-45.0); ABG PARTIAL PRESSURE O2 155.1 mmHg (75.0-100.0); ABG STANDARD HCO3 25.1 MMOL/L. (22.0-26.0); ABG TOTAL CO2 30.6 MMOL/L (23.0-31.0); ABG pH (ARTERIAL) 7.286 UNITS (7.350-7.450)
[2023-07-20 19:24] LABS: BASO % 0.1 % (0.0-1.0); EOS % 0.1 % (0.0-3.0); HEMATOCRIT 44.6 % (42.0-52.0); HEMOGLOBIN 13.5 g/dl (13.5-17.5); LYMPH # 0.3 10^3/uL (1.5-5.0); MEAN CORPUSCULAR HEMOGLOBIN 32.5 pg (27.0-33.0); MEAN CORPUSCULAR HGB CONC 30.3 g/dl (32.0-36.5); MEAN CORPUSCULAR VOLUME 107.5 fl (80.0-96.0); MONO # 0.5 10^3/uL (0.0-0.8); MONO % 3.7 % (2.0-8.0); NEUTROPHILS # 13.2 10^3/uL (1.5-8.5); NEUTROPHILS % 93.6 % (36.0-66.0); PLATELET COUNT, AUTOMATED 143 10^3/uL (150-450); RED BLOOD COUNT 4.15 10^6/uL (4.30-6.10); WHITE BLOOD COUNT 14.1 10^3/uL (4.0-10.0)
[2023-07-20 19:36] LABS: INR 1.15; PARTIAL THROMBOPLASTIN TIME 32.7 SECONDS (24.8-34.2); PROTHROMBIN TIME 14.4 SECONDS (12.5-14.5)
[2023-07-20 19:40] LABS: CK-MB VALUE MASS 3.6 NG/ML (<3.6)
[2023-07-20 19:43] LABS: ALBUMIN 3.3 G/DL (3.2-5.2); BILIRUBIN,DIRECT 0.3 MG/DL (<0.4); BILIRUBIN,TOTAL 0.7 MG/DL (0.3-1.2); CALCIUM LEVEL 7.7 MG/DL (8.3-10.6); CREATININE FOR GFR 1.75 MG/DL (0.70-1.30); GLOMERULAR FILTRATION RATE 40.5 (>42); POTASSIUM SERUM 4.4 MMOL/L (3.5-5.1); TOTAL PROTEIN 6.3 G/DL (5.7-8.2)
[2023-07-20 19:44] LABS: FREE T4 0.97 NG/DL (0.89-1.76); MB/CK RELATIVE INDEX 7.82 (< OR =4); THYROID STIMULATING HORMONE 0.664 uIU/ML (0.55-4.78)
[2023-07-20] MEDS: methylPREDNISolone 125MG 2ML VIAL IV ONE (19:44)
[2023-07-20] MEDS ORDERED: MOME13HF8 INH (20:06)
[2023-07-20] MEDS: PIPERACILLIN/TAZOBACTAM SOD 4.5 GM in D5W MINI-BAG PLUS 50 ML IV ONE (20:08)
[2023-07-20] MEDS: FUROSEMIDE 40MG/4ML VIAL IV ONE (20:08)
[2023-07-20] MEDS ORDERED: IBUP-359 PO (20:18)
[2023-07-20] MEDS ORDERED: BAYE325T13 PO (20:18)
[2023-07-20] MEDS ORDERED: HOME MED LIST COMPLETE! XX SCH (20:20)
[2023-07-20] MEDS ORDERED: ALBUTEROL SULFATE 2.5MG/0.5ML INH NEB SOLN NEB PRN (20:50)
[2023-07-20] MEDS ORDERED: BACLOFEN 10 MG TAB PO PRN (20:50)
[2023-07-20] MEDS ORDERED: LACTULOSE 20GM/30ML SYRUP UDC PO PRN (20:50)
[2023-07-20] MEDS: SENNA 8.6 MG TAB (SENOKOT) PO SCH (21:00)
[2023-07-20] MEDS: OMEPRAZOLE 20MG CAP PO SCH (21:00)
[2023-07-20] MEDS: IPRATROPIUM 0.5MG/ALBUTEROL 2.5MG INH SOL UD 3ML (DUONEB) NEB SCH (22:09)
[2023-07-20 22:15] LABS: ABG BASE EXCESS 1.2 (-2.0-2.0); ABG HCO3 29.7 MMOL/L (22.0-26.0); ABG O2 SATURATION 95.1 % (95.0-99.0); ABG PARTIAL PRESSURE O2 83.5 mmHg (75.0-100.0); ABG STANDARD HCO3 25.5 MMOL/L. (22.0-26.0); ABG TOTAL CO2 31.8 MMOL/L (23.0-31.0); ABG pH (ARTERIAL) 7.275 UNITS (7.350-7.450)
[2023-07-20 22:16] LABS: ABG PARTIAL PRESSURE CO2 65.5 mmHg (35.0-45.0)
[2023-07-20 22:30] VITALS: BP 105/70; O2SAT 95
[2023-07-20 22:50] VITALS: BP 114/75; O2SAT 99
[2023-07-20 23:00] VITALS: BP 114/81; TEMP 99.9; O2SAT 97
[2023-07-21] VITALS (24 sets, daily range): BP systolic 120–143; BP diastolic 62–103; TEMP 98.1–99; O2SAT 85–97
[2023-07-21 00:06] LABS: ABG BASE EXCESS 2.7 (-2.0-2.0); ABG HCO3 30.5 MMOL/L (22.0-26.0); ABG O2 SATURATION 95.1 % (95.0-99.0); ABG PARTIAL PRESSURE O2 82.4 mmHg (75.0-100.0); ABG STANDARD HCO3 26.8 MMOL/L. (22.0-26.0); ABG TOTAL CO2 32.4 MMOL/L (23.0-31.0); ABG pH (ARTERIAL) 7.311 UNITS (7.350-7.450)
[2023-07-21 00:08] LABS: ABG PARTIAL PRESSURE CO2 61.9 mmHg (35.0-45.0)
[2023-07-21 03:32] LABS: ABG BASE EXCESS 4.6 (-2.0-2.0); ABG HCO3 31.9 MMOL/L (22.0-26.0); ABG O2 SATURATION 94.2 % (95.0-99.0); ABG PARTIAL PRESSURE CO2 59.7 mmHg (35.0-45.0); ABG PARTIAL PRESSURE O2 73.9 mmHg (75.0-100.0); ABG STANDARD HCO3 28.6 MMOL/L. (22.0-26.0); ABG TOTAL CO2 33.8 MMOL/L (23.0-31.0); ABG pH (ARTERIAL) 7.346 UNITS (7.350-7.450)
[2023-07-21] MEDS: PIPERACILLIN/TAZOBACTAM SOD 4.5 GM in D5W MINI-BAG PLUS 50 ML IV SCH (03:43)
[2023-07-21] MEDS: methylPREDNISolone 125MG 2ML VIAL IV SCH (05:24)
[2023-07-21] MEDS ORDERED: methylPREDNISolone 125MG 2ML VIAL IV SCH (06:00)
[2023-07-21] MEDS: TIOTROPIUM INHALER/CAPSULE (SPIRIVA) INH SCH (08:07)
[2023-07-21] MEDS: ADVAIR HFA 230/21MCG INHALER INH SCH (08:08)
[2023-07-21] MEDS: HEPARIN SOD (PORCINE) 5000UNITS/ML 1ML VIAL/SYRINGE SQ SCH (08:25)
[2023-07-21] MEDS: NICOTINE 14 MG/24 HR TRANSDERMAL TOP SCH (08:25)
[2023-07-21] MEDS: MONTELUKAST 10 MG TAB PO SCH (08:28)
[2023-07-21] MEDS: ASPIRIN 325 MG TAB PO SCH (08:28)
[2023-07-21] MEDS: PRAVASTATIN 20 MG TAB PO SCH (08:28)
[2023-07-21] MEDS: MIRALAX *UNIT DOSE* 17GM PACKET PO SCH (08:29)
[2023-07-21 08:52] LABS: CALCIUM LEVEL 7.8 MG/DL (8.3-10.6); CREATININE FOR GFR 1.78 MG/DL (0.70-1.30); GLOMERULAR FILTRATION RATE 39.8 (>42)
[2023-07-21] MEDS ORDERED: FUROSEMIDE 20 MG TAB PO SCH (09:00)
[2023-07-21] MEDS ORDERED: ENOXAPARIN 40MG/0.4ML SYRINGE (J1650 PER 10MG) SC SCH (09:00)
[2023-07-21] MEDS: LR 1,000 ML IV SCH (10:35)
[2023-07-22] VITALS (11 sets, daily range): BP systolic 119–156; BP diastolic 60–76; TEMP 97.9–99; O2SAT 89–94
[2023-07-22 06:06] LABS: ABG BASE EXCESS 4.5 (-2.0-2.0); ABG HCO3 30.1 MMOL/L (22.0-26.0); ABG O2 SATURATION 91.9 % (95.0-99.0); ABG PARTIAL PRESSURE CO2 49.3 mmHg (35.0-45.0); ABG PARTIAL PRESSURE O2 63.9 mmHg (75.0-100.0); ABG STANDARD HCO3 28.3 MMOL/L. (22.0-26.0); ABG TOTAL CO2 31.6 MMOL/L (23.0-31.0); ABG pH (ARTERIAL) 7.403 UNITS (7.350-7.450)
[2023-07-22 08:19] LABS: HEMATOCRIT 37.5 % (42.0-52.0); HEMOGLOBIN 11.6 g/dl (13.5-17.5); MEAN CORPUSCULAR HEMOGLOBIN 32.9 pg (27.0-33.0); MEAN CORPUSCULAR HGB CONC 30.9 g/dl (32.0-36.5); MEAN CORPUSCULAR VOLUME 106.2 fl (80.0-96.0); PLATELET COUNT, AUTOMATED 120 10^3/uL (150-450); RED BLOOD COUNT 3.53 10^6/uL (4.30-6.10); WHITE BLOOD COUNT 11.4 10^3/uL (4.0-10.0)
[2023-07-22 08:40] LABS: CALCIUM LEVEL 7.8 MG/DL (8.3-10.6); CREATININE FOR GFR 1.53 MG/DL (0.70-1.30); GLOMERULAR FILTRATION RATE 47.3 (>42); POTASSIUM SERUM 3.6 MMOL/L (3.5-5.1)
[2023-07-22] MEDS: LevoFLOXacin 750 MG TABLET PO SCH (12:01)
[2023-07-22] MEDS: methylPREDNISolone 40MG 1ML VIAL IV SCH (12:45)
[2023-07-22] MEDS: SENNA 8.6 MG TAB (SENOKOT) PO SCH (21:00)
[2023-07-22] MEDS ORDERED: SENNA 8.6 MG TAB (SENOKOT) PO PRN (23:40)
[2023-07-23 06:50] LABS: HEMATOCRIT 39.3 % (42.0-52.0); HEMOGLOBIN 11.9 g/dl (13.5-17.5); MEAN CORPUSCULAR HEMOGLOBIN 32.6 pg (27.0-33.0); MEAN CORPUSCULAR HGB CONC 30.3 g/dl (32.0-36.5); MEAN CORPUSCULAR VOLUME 107.7 fl (80.0-96.0); PLATELET COUNT, AUTOMATED 118 10^3/uL (150-450); RED BLOOD COUNT 3.65 10^6/uL (4.30-6.10); WHITE BLOOD COUNT 11.6 10^3/uL (4.0-10.0)
[2023-07-23 07:19] LABS: CREATININE FOR GFR 1.45 MG/DL (0.70-1.30); GLOMERULAR FILTRATION RATE 50.4 (>42)
[2023-07-23] MEDS: guaiFENesin ER TABLET 600 MG TAB PO SCH (08:51)
[2023-07-23] MEDS ORDERED: LEVO1TAB40 PO (14:34)
[2023-07-23] MEDS ORDERED: DOXY-444 PO (14:38)
[2023-07-23] MEDS ORDERED: ALBU6.7H6 INH (14:38)
[2023-07-23] MEDS ORDERED: PRED20TA PO (14:38)
[2023-07-23] MEDS ORDERED: predniSONE 20 MG TAB PO SCH (21:00)
== END 2023-07-23 14:50 | disposition left against medical advice (07) | DRG 177 ==
LOC: M ED 18:29 → M ED INP 20:50 → EEVIPCON 20:50 → ENRESERV 22:00 → M ICU 22:37 → M MS5PR 07-22 16:06
PROVIDERS: ADMIT Internal Medicine; ATTEND General Practice
DX: U07.1 COVID-19 (principal); J96.21 Acute and chronic respiratory failure with hypoxia; J96.22 Acute and chronic respiratory failure with hypercapnia; G93.41 Metabolic encephalopathy; J44.1 Chronic obstructive pulmonary disease with (acute) exacerbation; I50.32 Chronic diastolic (congestive) heart failure; E87.20 Acidosis, unspecified; N17.9 Acute kidney failure, unspecified; I13.0 Hypertensive heart and chronic kidney disease with heart failure and stage 1 through stage 4 chronic kidney disease, or unspecified chronic kidney disease; N18.9 Chronic kidney disease, unspecified; F17.210 Nicotine dependence, cigarettes, uncomplicated; B97.4 Respiratory syncytial virus as the cause of diseases classified elsewhere; K22.70 Barrett's esophagus without dysplasia; D63.8 Anemia in other chronic diseases classified elsewhere; D69.6 Thrombocytopenia, unspecified; K21.9 Gastro-esophageal reflux disease without esophagitis; G47.33 Obstructive sleep apnea (adult) (pediatric); E78.5 Hyperlipidemia, unspecified; Z79.82 Long term (current) use of aspirin; Z79.899 Other long term (current) drug therapy; Z91.013 Allergy to seafood; Z91.018 Allergy to other foods; Z99.81 Dependence on supplemental oxygen

== ENCOUNTER → 2023-12-17 | Outpatient (CLI) | payer MEDICARE, MEDICAID ==
[~2023-12-17] MED LIST changes: +ALBU6.7H6 INH; +BAYE325T13 PO; +DOXY-440 PO; +IBUP-359 PO; +LEVO1TAB40 PO; +MOME13HF8 INH
[2023-12-17 15:58] LABS: BLOOD UREA NITROGEN 14 MG/DL (9-23); CALCIUM LEVEL 8.8 MG/DL (8.3-10.6); CARBON DIOXIDE LEVEL 36 MMOL/L (20-31); CHLORIDE LEVEL 104 MMOL/L (98-107); CHOLESTEROL LEVEL 168 MG/DL (<200); CHOLESTEROL RISK RATIO 3.76 (<5); CREATININE FOR GFR 0.89 MG/DL (0.70-1.30); GLOMERULAR FILTRATION RATE > 60.0 (>42); GLUCOSE, FASTING 108 MG/DL (74-106); HDL CHOLESTEROL 44.6 MG/DL (>40); LDL CHOLESTEROL 109.4 MG/DL (<100); NON-HDL-C 123.4 MG/DL; POTASSIUM SERUM 4.2 MMOL/L (3.5-5.1); SODIUM LEVEL 142 MMOL/L (136-145); TRIGLYCERIDES LEVEL 70 MG/DL (<150)
== END ==
LOC: M PLALAB 11:39
PROVIDERS: ATTEND Student in an Organized Health Care Education/Training Program
DX: E78.5 Hyperlipidemia, unspecified (principal); I10 Essential (primary) hypertension

== ENCOUNTER → 2024-03-04 | Outpatient (CLI) | payer MEDICARE, MEDICAID ==
[~2024-03-04] MED LIST changes: +CEPH500C PO; +SENN-187 PO; -SENN-83 PO
== END ==
LOC: M RAD 13:06
PROVIDERS: ATTEND Student in an Organized Health Care Education/Training Program
DX: R60.9 Edema, unspecified (principal)

== ENCOUNTER → 2024-03-04 | Outpatient (CLI) | payer MEDICARE, MEDICAID | LOC: M RAD 13:04 | PROVIDERS: ATTEND Surgery | DX: L97.322 Non-pressure chronic ulcer of left ankle with fat layer exposed (principal); R68.89 Other general symptoms and signs; R60.9 Edema, unspecified ==

== ENCOUNTER 2024-03-06 14:21 | Emergency (ER) | payer MEDICARE, MEDICAID ==
[~2024-03-06] VITALS: Ht 170.2 cm; Wt 103.6 kg
[~2024-03-06 14:21] MED LIST changes: -CEPH500C PO
[2024-03-06 16:50] LABS: BASO # 0.1 10^3/uL (0.0-0.2); BASO % 0.7 % (0.0-1.0); EOS # 0.1 10^3/uL (0.0-0.5); EOS % 0.6 % (0.0-3.0); HEMATOCRIT 28.4 % (42.0-52.0); LYMPH # 0.6 10^3/uL (1.5-5.0); LYMPH % 6.5 % (24.0-44.0); MEAN CORPUSCULAR HEMOGLOBIN 33.2 pg (27.0-33.0); MEAN CORPUSCULAR HGB CONC 31.7 g/dl (32.0-36.5); MEAN CORPUSCULAR VOLUME 104.8 fl (80.0-96.0); MONO # 0.5 10^3/uL (0.0-0.8); MONO % 6.1 % (2.0-8.0); NEUTROPHILS # 7.5 10^3/uL (1.5-8.5); NEUTROPHILS % 85.6 % (36.0-66.0); PLATELET COUNT, AUTOMATED 306 10^3/uL (150-450); RED BLOOD COUNT 2.71 10^6/uL (4.30-6.10); WHITE BLOOD COUNT 8.8 10^3/uL (4.0-10.0)
[2024-03-06 17:01] LABS: ERYTHROCYTE SEDIMENTATION RATE 40 mm/hr (0-20)
[2024-03-06 17:09] LABS: PROTHROMBIN TIME 13.5 SECONDS (12.5-14.5)
[2024-03-06 17:18] LABS: C REACTIVE PROTEIN QUANTITATIV 4.1 MG/DL (<1.0)
[2024-03-06 17:20] LABS: CALCIUM LEVEL 8.9 MG/DL (8.3-10.6); CREATININE FOR GFR 1.26 MG/DL (0.70-1.30); GLOMERULAR FILTRATION RATE 59.2 (>42); POTASSIUM SERUM 4.2 MMOL/L (3.5-5.1)
[2024-03-06] MEDS: IBUPROFEN 800 MG TAB PO ONE (17:41)
[2024-03-06] MEDS ORDERED: CEPH500C PO (18:30)
[2024-03-06 19:05] VITALS: BP 161/95; TEMP 97.7; O2SAT 100
== END 2024-03-06 19:08 | disposition home or self-care (01) ==
LOC: M ED 14:21
DX: S91.002A Unspecified open wound, left ankle, initial encounter (principal); I87.312 Chronic venous hypertension (idiopathic) with ulcer of left lower extremity; I10 Essential (primary) hypertension; J44.9 Chronic obstructive pulmonary disease, unspecified; K21.9 Gastro-esophageal reflux disease without esophagitis; R91.1 Solitary pulmonary nodule; F17.200 Nicotine dependence, unspecified, uncomplicated; Z86.79 Personal history of other diseases of the circulatory system; Z79.52 Long term (current) use of systemic steroids; Z79.82 Long term (current) use of aspirin; Z79.2 Long term (current) use of antibiotics; Z79.899 Other long term (current) drug therapy; Y92.9 Unspecified place or not applicable; Y93.89 Activity, other specified; Y99.9 Unspecified external cause status

== ENCOUNTER 2024-03-13 03:40 | Inpatient (IN) | payer MEDICARE, MEDICAID ==
[~2024-03-13] VITALS: Ht 165.1 cm; Wt 104.1 kg
[~2024-03-13 03:40] MED LIST changes: +CEPH500C PO
[2024-03-13 04:43] LABS: BASO # 0.1 10^3/uL (0.0-0.2); BASO % 0.8 % (0.0-1.0); EOS # 0.1 10^3/uL (0.0-0.5); EOS % 1.7 % (0.0-3.0); HEMATOCRIT 25.7 % (42.0-52.0); HEMOGLOBIN 8.2 g/dl (13.5-17.5); LYMPH # 0.8 10^3/uL (1.5-5.0); LYMPH % 12.1 % (24.0-44.0); MEAN CORPUSCULAR HEMOGLOBIN 33.2 pg (27.0-33.0); MEAN CORPUSCULAR HGB CONC 31.9 g/dl (32.0-36.5); MONO # 0.8 10^3/uL (0.0-0.8); MONO % 12.9 % (2.0-8.0); NEUTROPHILS # 4.6 10^3/uL (1.5-8.5); NEUTROPHILS % 71.3 % (36.0-66.0); PLATELET COUNT, AUTOMATED 417 10^3/uL (150-450); RED BLOOD COUNT 2.47 10^6/uL (4.30-6.10); WHITE BLOOD COUNT 6.5 10^3/uL (4.0-10.0)
[2024-03-13 05:05] LABS: C REACTIVE PROTEIN QUANTITATIV 5.9 MG/DL (<1.0)
[2024-03-13 05:06] LABS: CALCIUM LEVEL 8.8 MG/DL (8.3-10.6); CREATININE FOR GFR 1.29 MG/DL (0.70-1.30); GLOMERULAR FILTRATION RATE 57.6 (>42); MAGNESIUM LEVEL 1.7 MG/DL (1.8-2.4); POTASSIUM SERUM 4.2 MMOL/L (3.5-5.1)
[2024-03-13] MEDS ORDERED: ISOVUE-370 76% 100ML VIAL As Ordered ONE (07:57)
[2024-03-13] MEDS ORDERED: ADVAIR HFA 230/21MCG INHALER INH SCH (08:00)
[2024-03-13] MEDS: ACETAMINOPHEN 325 MG TAB PO ONE (10:00)
[2024-03-13] MEDS ORDERED: HEPARIN SOD (PORCINE) 5000UNITS/ML 1ML VIAL/SYRINGE IV PRN (10:15)
[2024-03-13] MEDS ORDERED: PRED10TA2 PO (10:28)
[2024-03-13] MEDS ORDERED: IBUP80TA PO (10:28)
[2024-03-13] MEDS ORDERED: FURO40TA2 PO (10:28)
[2024-03-13] MEDS ORDERED: CEPH500C PO (10:28)
[2024-03-13] MEDS ORDERED: FLON1SPR NARES (10:29)
[2024-03-13] MEDS ORDERED: HOME MED LIST COMPLETE! XX SCH (10:35)
[2024-03-13 11:14] LABS: INR 1.08; PARTIAL THROMBOPLASTIN TIME 31.6 SECONDS (24.8-34.2); PROTHROMBIN TIME 14.3 SECONDS (12.5-14.5)
[2024-03-13] MEDS: HEPARIN SOD (PORCINE) 5000UNITS/ML 1ML VIAL/SYRINGE IV ONE (11:18)
[2024-03-13] MEDS ORDERED: MIRALAX *UNIT DOSE* 17GM PACKET PO PRN (11:25)
[2024-03-13] MEDS ORDERED: ALBUTEROL SULFATE 2.5MG/0.5ML INH NEB SOLN NEB PRN (11:25)
[2024-03-13] MEDS ORDERED: BACLOFEN 10 MG TAB PO PRN (11:25)
[2024-03-13] MEDS: HEPARIN DRIP 25,000 UNITS in IV 1 EA IV SCH (11:30)
[2024-03-13] MEDS ORDERED: ISOVUE-300 61% 100ML VIAL As Ordered ONE (11:33)
[2024-03-13] MEDS ORDERED: LIDOCAINE 1% MDV 20ML VIAL As Ordered ONE (11:33)
[2024-03-13] MEDS ORDERED: NS 1,000 ML IV SCH (11:40)
[2024-03-13] MEDS: COMBIVENT RESPIMAT 100-20MCG INHALER 4GM INH SCH (12:00)
[2024-03-13] MEDS: TIOTROPIUM INHALER/CAPSULE (SPIRIVA) INH SCH (12:41)
[2024-03-13] MEDS: ADVAIR HFA 230/21MCG INHALER INH ONE (12:41)
[2024-03-13] MEDS: ALBUTEROL SULFATE 2.5MG/0.5ML INH NEB SOLN INH ONE (12:41)
[2024-03-13] MEDS ORDERED: ceFAZolin 2 GM/D5W 50 ML IV BAG As Ordered ONE (13:09)
[2024-03-13] MEDS ORDERED: HEPARIN 1,000UNITS/ML 10ML VIAL (FOR RADIOLOGY & DIALYSIS ONLY) As Ordered ONE (13:51)
[2024-03-13] MEDS ORDERED: LABETALOL 100MG/20ML VIAL As Ordered ONE (15:26)
[2024-03-13] MEDS ORDERED: MIDAZOLAM INJ 2MG/2ML VIAL As Ordered ONE (15:26)
[2024-03-13] MEDS ORDERED: GLYCOPYRROLATE INJ 0.2 MG/ML 2 ML VIAL As Ordered ONE (15:26)
[2024-03-13] MEDS ORDERED: dexmedeTOMIDine (4MCG/ML)200MCG/50ML BTL (PRECEDEX) As Ordered ONE (15:26)
[2024-03-13] MEDS ORDERED: ePHEDrine SULFATE 25 MG/5 ML(5MG/ML) SYRINGE As Ordered ONE (15:26)
[2024-03-13] MEDS ORDERED: KETAMINE HCL 200MG/20ML VIAL As Ordered ONE (15:26)
[2024-03-13] MEDS ORDERED: flumazeniL 0.5MG/5ML VIAL As Ordered ONE (15:27)
[2024-03-13] MEDS ORDERED: ONDANSETRON 4MG 2ML VIAL IV PRN (15:35)
[2024-03-13] MEDS ORDERED: PERCOCET 5MG/325MG TAB PO PRN (15:45)
[2024-03-13 17:31] VITALS: BP 169/81; TEMP 95.6; O2SAT 93
[2024-03-13 18:02] VITALS: BP 169/80; TEMP 96.7; O2SAT 94
[2024-03-13 18:19] LABS: HEMATOCRIT 27.1 % (42.0-52.0); HEMOGLOBIN 8.4 g/dl (13.5-17.5); MEAN CORPUSCULAR HEMOGLOBIN 32.7 pg (27.0-33.0); MEAN CORPUSCULAR VOLUME 105.4 fl (80.0-96.0); PLATELET COUNT, AUTOMATED 379 10^3/uL (150-450); RED BLOOD COUNT 2.57 10^6/uL (4.30-6.10); WHITE BLOOD COUNT 9.8 10^3/uL (4.0-10.0)
[2024-03-13 18:48] LABS: INR 1.31; PROTHROMBIN TIME 16.5 SECONDS (12.5-14.5)
[2024-03-13 18:50] LABS: BLOOD UREA NITROGEN 12 MG/DL (9-23); CALCIUM LEVEL 8.6 MG/DL (8.3-10.6); CARBON DIOXIDE LEVEL 31 MMOL/L (20-31); CHLORIDE LEVEL 102 MMOL/L (98-107); CREATININE FOR GFR 0.94 MG/DL (0.70-1.30); GLOMERULAR FILTRATION RATE > 60.0 (>42); GLUCOSE, FASTING 103 MG/DL (74-106); POTASSIUM SERUM 4.1 MMOL/L (3.5-5.1); SODIUM LEVEL 137 MMOL/L (136-145)
[2024-03-13] MEDS: ROSUVASTATIN 10 MG TAB (CRESTOR) PO SCH (18:53)
[2024-03-13] MEDS: MONTELUKAST 10 MG TAB PO SCH (18:54)
[2024-03-13] MEDS: ACETAMINOPHEN 325 MG TAB PO PRN (18:54)
[2024-03-13] MEDS: predniSONE 10MG TAB PO SCH (18:54)
[2024-03-13] MEDS: ASPIRIN 81MG ENTERIC TABLET PO SCH (18:54)
[2024-03-13] MEDS: CLOPIDOGREL 300 MG TAB (PLAVIX) PO STA (18:54)
[2024-03-13] MEDS: NS 1,000 ML IV SCH (18:54)
[2024-03-13 19:05] VITALS: BP 155/70; TEMP 96.6; O2SAT 98
[2024-03-13 19:13] LABS: PERCENT SATURATION 2.9 % (19.7-50.0)
[2024-03-13 19:16] LABS: FERRITIN 27.5 NG/ML (10.5-307.3); FOLATE 13.6 NG/ML (>5.4)
[2024-03-13 19:26] LABS: PARTIAL THROMBOPLASTIN TIME > 240.0 SECONDS (24.8-34.2)
[2024-03-13 19:56] VITALS: BP 116/55; TEMP 96.9; O2SAT 94
[2024-03-13] MEDS: ADVAIR HFA 230/21MCG INHALER INH SCH (19:59)
[2024-03-13] MEDS ORDERED: PANTOPRAZOLE 40MG TAB (PROTONIX) PO SCH (21:00)
[2024-03-13] MEDS: SENOKOT S TAB PO SCH (21:10)
[2024-03-13] MEDS: PANTOPRAZOLE 40MG TAB (PROTONIX) PO SCH (21:10)
[2024-03-13 21:19] VITALS: BP 139/64; TEMP 97; O2SAT 95
[2024-03-13 23:14] VITALS: BP 121/58; TEMP 97.2; O2SAT 97
[2024-03-13] MEDS: ALBUTEROL 90 MCG/ACT 8GM HFA INHALER INH PRN (23:42)
[2024-03-14 03:20] VITALS: O2SAT 95
[2024-03-14 03:23] VITALS: O2SAT 88
[2024-03-14 03:28] VITALS: O2SAT 92
[2024-03-14 04:08] VITALS: BP 111/73; TEMP 97; O2SAT 91
[2024-03-14 06:36] LABS: BASO % 0.4 % (0.0-1.0); EOS % 0.3 % (0.0-3.0); HEMATOCRIT 25.8 % (42.0-52.0); HEMOGLOBIN 8.1 g/dl (13.5-17.5); LYMPH # 0.3 10^3/uL (1.5-5.0); LYMPH % 2.4 % (24.0-44.0); MEAN CORPUSCULAR HEMOGLOBIN 32.9 pg (27.0-33.0); MEAN CORPUSCULAR HGB CONC 31.4 g/dl (32.0-36.5); MEAN CORPUSCULAR VOLUME 104.9 fl (80.0-96.0); MONO # 0.5 10^3/uL (0.0-0.8); MONO % 4.4 % (2.0-8.0); NEUTROPHILS # 9.4 10^3/uL (1.5-8.5); NEUTROPHILS % 91.5 % (36.0-66.0); PLATELET COUNT, AUTOMATED 365 10^3/uL (150-450); RED BLOOD COUNT 2.46 10^6/uL (4.30-6.10); WHITE BLOOD COUNT 10.3 10^3/uL (4.0-10.0)
[2024-03-14 06:53] LABS: BLOOD UREA NITROGEN 11 MG/DL (9-23); CALCIUM LEVEL 8.6 MG/DL (8.3-10.6); CARBON DIOXIDE LEVEL 32 MMOL/L (20-31); CHLORIDE LEVEL 102 MMOL/L (98-107); CREATININE FOR GFR 0.86 MG/DL (0.70-1.30); GLOMERULAR FILTRATION RATE > 60.0 (>42); GLUCOSE, FASTING 122 MG/DL (74-106); MAGNESIUM LEVEL 1.8 MG/DL (1.8-2.4); POTASSIUM SERUM 4.5 MMOL/L (3.5-5.1); SODIUM LEVEL 138 MMOL/L (136-145)
[2024-03-14 07:23] VITALS: BP 121/85; TEMP 97.8; O2SAT 98
[2024-03-14] MEDS ORDERED: MONTELUKAST 10 MG TAB PO SCH (09:00)
[2024-03-14] MEDS ORDERED: predniSONE 10MG TAB PO SCH (09:00)
[2024-03-14] MEDS ORDERED: ROSU10TA61 PO (09:30)
[2024-03-14] MEDS ORDERED: CLOP75TA2 PO (09:30)
[2024-03-14] MEDS ORDERED: ASPI81TAEC PO (09:30)
[2024-03-14] MEDS ORDERED: ROSU20TA86 PO (09:32)
[2024-03-14] MEDS ORDERED: PILL CUTTER 1 EACH XX ONE (09:41)
[2024-03-14] MEDS: FLUTICASONE PROP 0.05% NASAL SPRAY 16 GM (FLONASE) NARES SCH (09:46)
[2024-03-14 09:47] VITALS: BP 121/85
[2024-03-14] MEDS: CLOPIDOGREL 75 MG TAB PO SCH (09:47)
[2024-03-14] MEDS: FUROSEMIDE 40 MG TAB PO SCH (09:48)
== END 2024-03-14 13:02 | disposition home or self-care (01) | DRG 253 ==
LOC: M ED 03:40 → M ED INP 11:54 → M PCU 17:21
PROVIDERS: ADMIT Internal Medicine; ATTEND Internal Medicine
PROC: 047L34Z Dilation of Left Femoral Artery with Drug-eluting Intraluminal Device, Percutaneous Approach (ICD-10-PCS; principal; 2024-03-13 12:00)
DX: I82.412 Acute embolism and thrombosis of left femoral vein (principal); J96.11 Chronic respiratory failure with hypoxia; L97.829 Non-pressure chronic ulcer of other part of left lower leg with unspecified severity; J44.9 Chronic obstructive pulmonary disease, unspecified; J45.909 Unspecified asthma, uncomplicated; R91.8 Other nonspecific abnormal finding of lung field; I27.29 Other secondary pulmonary hypertension; I73.9 Peripheral vascular disease, unspecified; I10 Essential (primary) hypertension; E78.5 Hyperlipidemia, unspecified; G47.33 Obstructive sleep apnea (adult) (pediatric); Z98.41 Cataract extraction status, right eye; Z98.42 Cataract extraction status, left eye; F17.210 Nicotine dependence, cigarettes, uncomplicated; D64.9 Anemia, unspecified; Z79.82 Long term (current) use of aspirin; Z79.2 Long term (current) use of antibiotics; Z79.899 Other long term (current) drug therapy; Z91.013 Allergy to seafood; Z91.018 Allergy to other foods; Z99.81 Dependence on supplemental oxygen

== ENCOUNTER → 2024-03-20 | Outpatient (CLI) | payer MEDICARE, MEDICAID ==
[~2024-03-20] MED LIST changes: +ASPI81TAEC PO; +CLOP75TA2 PO; +FLON1SPR NARES; +HYDR-3713 PO; +IBUP80TA PO; +ROSU10TA61 PO; +ROSU20TA86 PO
== END ==
LOC: M RAD 11:24
PROVIDERS: ATTEND Radiology Diagnostic Radiology
DX: I73.9 Peripheral vascular disease, unspecified (principal)

== ENCOUNTER 2024-04-16 17:48 | Inpatient (IN) | payer MEDICARE, MEDICAID ==
[~2024-04-16] VITALS: Ht 162.6 cm; Wt 106.5 kg
[2024-04-16 18:33] LABS: BASO # 0.1 10^3/uL (0.0-0.2); BASO % 0.6 % (0.0-1.0); EOS # 0.1 10^3/uL (0.0-0.5); EOS % 1.7 % (0.0-3.0); HEMATOCRIT 27.4 % (42.0-52.0); HEMOGLOBIN 7.9 g/dl (13.5-17.5); LYMPH # 0.7 10^3/uL (1.5-5.0); LYMPH % 9.4 % (24.0-44.0); MEAN CORPUSCULAR HGB CONC 28.8 g/dl (32.0-36.5); MEAN CORPUSCULAR VOLUME 100.7 fl (80.0-96.0); MONO # 0.8 10^3/uL (0.0-0.8); MONO % 9.6 % (2.0-8.0); NEUTROPHILS # 6.1 10^3/uL (1.5-8.5); NEUTROPHILS % 78.3 % (36.0-66.0); PLATELET COUNT, AUTOMATED 172 10^3/uL (150-450); RED BLOOD COUNT 2.72 10^6/uL (4.30-6.10); WHITE BLOOD COUNT 7.8 10^3/uL (4.0-10.0)
[2024-04-16 18:57] LABS: ALBUMIN 3.2 G/DL (3.2-5.2); ALKALINE PHOSPHATASE 47 U/L (40-129); ALT/SGPT 11 U/L (7.0-40); AST/SGOT 20 U/L (<34); BILIRUBIN,DIRECT 0.1 MG/DL (<0.4); BILIRUBIN,TOTAL 0.4 MG/DL (0.3-1.2); BLOOD UREA NITROGEN 16 MG/DL (9-23); CALCIUM LEVEL 8.6 MG/DL (8.3-10.6); CARBON DIOXIDE LEVEL 34 MMOL/L (20-31); CHLORIDE LEVEL 105 MMOL/L (98-107); CREATININE FOR GFR 0.99 MG/DL (0.70-1.30); GLOMERULAR FILTRATION RATE > 60.0 (>42); GLUCOSE, FASTING 97 MG/DL (74-106); POTASSIUM SERUM 3.7 MMOL/L (3.5-5.1); SODIUM LEVEL 144 MMOL/L (136-145); TOTAL PROTEIN 6.2 G/DL (5.7-8.2)
[2024-04-16] MEDS ORDERED: ISOVUE-370 76% 100ML VIAL As Ordered ONE (19:05)
[2024-04-16] MEDS: IPRATROPIUM 0.5MG/ALBUTEROL 2.5MG INH SOL UD 3ML (DUONEB) NEB ONE (19:06)
[2024-04-16] MEDS ORDERED: ACETAMINOPHEN 325 MG TAB PO PRN (21:10)
[2024-04-16] MEDS: PIPERACILLIN/TAZOBACTAM SOD 4.5 GM in DEXTROSE 5% (D5W) ADV/MINI-BAG 50 ML IV ONE (21:14)
[2024-04-16] MEDS ORDERED: HOME MED LIST COMPLETE! XX SCH (21:30)
[2024-04-16 22:08] LABS: PROCALCITONIN 0.05 ng/ml
[2024-04-16] MEDS ORDERED: ASPI81TA26 PO (22:32)
[2024-04-16] MEDS ORDERED: CLOP75TA99 PO (22:33)
[2024-04-17] VITALS: BP 147/64; TEMP 97.7; O2SAT 97
[2024-04-17] MEDS: ALBUTEROL SULFATE 2.5MG/0.5ML INH NEB SOLN NEB PRN (00:22)
[2024-04-17] MEDS: IPRATROPIUM 0.5MG/ALBUTEROL 2.5MG INH SOL UD 3ML (DUONEB) NEB SCH (01:20)
[2024-04-17] MEDS: PIPERACILLIN/TAZOBACTAM SOD 4.5 GM in DEXTROSE 5% (D5W) ADV/MINI-BAG 50 ML IV SCH (03:30)
[2024-04-17 04:00] VITALS: BP 121/63; TEMP 97.7; O2SAT 92
[2024-04-17 06:47] LABS: HEMATOCRIT 28.8 % (42.0-52.0); HEMOGLOBIN 8.2 g/dl (13.5-17.5); MEAN CORPUSCULAR HEMOGLOBIN 28.8 pg (27.0-33.0); MEAN CORPUSCULAR HGB CONC 28.5 g/dl (32.0-36.5); MEAN CORPUSCULAR VOLUME 101.1 fl (80.0-96.0); PLATELET COUNT, AUTOMATED 154 10^3/uL (150-450); RED BLOOD COUNT 2.85 10^6/uL (4.30-6.10); WHITE BLOOD COUNT 10.8 10^3/uL (4.0-10.0)
[2024-04-17] MEDS: SYMBICORT 160/4.5MCG INHALER 6GM INH SCH (07:08)
[2024-04-17 07:18] LABS: BLOOD UREA NITROGEN 14 MG/DL (9-23); CALCIUM LEVEL 8.3 MG/DL (8.3-10.6); CARBON DIOXIDE LEVEL 34 MMOL/L (20-31); CHLORIDE LEVEL 103 MMOL/L (98-107); CREATININE FOR GFR 0.96 MG/DL (0.70-1.30); GLOMERULAR FILTRATION RATE > 60.0 (>42); GLUCOSE, FASTING 76 MG/DL (74-106); POTASSIUM SERUM 3.6 MMOL/L (3.5-5.1); SODIUM LEVEL 143 MMOL/L (136-145)
[2024-04-17 08:00] VITALS: BP 144/66; TEMP 97.5; O2SAT 95
[2024-04-17] MEDS: FLUTICASONE PROP 0.05% NASAL SPRAY 16 GM (FLONASE) NARES SCH (09:00)
[2024-04-17] MEDS: CLOPIDOGREL 75 MG TAB PO SCH (09:29)
[2024-04-17] MEDS: predniSONE 20 MG TAB PO SCH (09:29)
[2024-04-17] MEDS: PRAVASTATIN 20 MG TAB PO SCH (09:29)
[2024-04-17] MEDS: ASPIRIN 81MG ENTERIC TABLET PO SCH (09:29)
[2024-04-17] MEDS: MONTELUKAST 10 MG TAB PO SCH (09:30)
[2024-04-17] MEDS: DOCUSATE SODIUM 100MG CAPSULE PO SCH (09:30)
[2024-04-17] MEDS: ENOXAPARIN 40MG/0.4ML SYRINGE (J1650 PER 10MG) SC SCH (09:30)
[2024-04-17] MEDS: PANTOPRAZOLE 40MG VIAL IV SCH (10:33)
[2024-04-17] MEDS: AZITHROMYCIN 250MG TABLET PO SCH (11:22)
[2024-04-17] MEDS: FUROSEMIDE 40MG/4ML VIAL IV SCH (11:23)
[2024-04-17] MEDS: POTASSIUM CHLORIDE 10MEQ SR TABLET PO SCH (11:23)
[2024-04-17] MEDS ORDERED: FUROSEMIDE 40 MG TAB PO SCH (12:00)
[2024-04-17] MEDS ORDERED: FUROSEMIDE 20 MG TAB PO SCH (14:00)
[2024-04-17 14:38] VITALS: O2SAT 97
[2024-04-17] MEDS: MOM 30ML SUSPENSION UDC PO PRN (17:56)
[2024-04-17 20:00] VITALS: BP 131/65; TEMP 97.9; O2SAT 98
[2024-04-18 04:00] VITALS: BP 135/64; TEMP 97.7; O2SAT 100
[2024-04-18 06:22] LABS: VENOUS BASE EXCESS 10.8 (-2.0-2.0); VENOUS HCO3 39.2 MMOL/L (23.0-27.0); VENOUS O2 SATURATION 73.5 % (60.0-80.0); VENOUS PARTIAL PRESSURE CO2 81.6 mmHg (38.0-50.0); VENOUS PARTIAL PRESSURE O2 40.6 mmHg (30.0-50.0); VENOUS PH 7.299 UNITS (7.330-7.430); VENOUS STANDARD HCO3 34.1 MMOL/L; VENOUS TOTAL CO2 41.7 MMOL/L (24.0-28.0)
[2024-04-18 06:33] LABS: BASO % 0.1 % (0.0-1.0); EOS % 0.3 % (0.0-3.0); HEMATOCRIT 28.6 % (42.0-52.0); HEMOGLOBIN 8.1 g/dl (13.5-17.5); LYMPH # 0.5 10^3/uL (1.5-5.0); LYMPH % 7.4 % (24.0-44.0); MEAN CORPUSCULAR HEMOGLOBIN 28.5 pg (27.0-33.0); MEAN CORPUSCULAR HGB CONC 28.3 g/dl (32.0-36.5); MEAN CORPUSCULAR VOLUME 100.7 fl (80.0-96.0); MONO # 0.5 10^3/uL (0.0-0.8); NEUTROPHILS # 5.8 10^3/uL (1.5-8.5); NEUTROPHILS % 84.9 % (36.0-66.0); PLATELET COUNT, AUTOMATED 170 10^3/uL (150-450); RED BLOOD COUNT 2.84 10^6/uL (4.30-6.10); WHITE BLOOD COUNT 6.9 10^3/uL (4.0-10.0)
[2024-04-18 07:06] LABS: BLOOD UREA NITROGEN 15 MG/DL (9-23); CALCIUM LEVEL 8.7 MG/DL (8.3-10.6); CARBON DIOXIDE LEVEL > 40.0 MMOL/L (20-31); CHLORIDE LEVEL 99 MMOL/L (98-107); CREATININE FOR GFR 1.07 MG/DL (0.70-1.30); GLOMERULAR FILTRATION RATE > 60.0 (>42); GLUCOSE, FASTING 86 MG/DL (74-106); POTASSIUM SERUM 3.5 MMOL/L (3.5-5.1); SODIUM LEVEL 143 MMOL/L (136-145)
[2024-04-18 08:13] VITALS: BP 138/76
[2024-04-18 09:34] LABS: ABG BASE EXCESS 9.5 (-2.0-2.0); ABG HCO3 34.7 MMOL/L (22.0-26.0); ABG O2 SATURATION 99.7 % (95.0-99.0); ABG PARTIAL PRESSURE CO2 52.2 mmHg (35.0-45.0); ABG PARTIAL PRESSURE O2 209.3 mmHg (75.0-100.0); ABG STANDARD HCO3 33.2 MMOL/L. (22.0-26.0); ABG TOTAL CO2 36.3 MMOL/L (23.0-31.0)
[2024-04-18] MEDS ORDERED: PRED20TA PO (11:02)
[2024-04-18] MEDS ORDERED: AZIT500T5 PO (11:02)
[2024-04-18] MEDS ORDERED: LASI40TA9 PO (11:02)
[2024-04-18] MEDS ORDERED: AMOX875T2 PO (11:02)
[2024-04-18] MEDS ORDERED: POTA-151 PO (11:02)
[2024-04-18] MEDS ORDERED: IPRA0.00 INH (11:06)
[2024-04-18] MEDS ORDERED: METO25TA PO (11:06)
[2024-04-18 12:00] VITALS: BP 112/74; TEMP 97.7; O2SAT 100
== END 2024-04-18 14:15 | disposition home health service (06) | DRG 193 ==
LOC: EDBD 17:48 → M ED 17:48 → M ED INP 21:06 → M MS5PR 04-17 00:36
PROVIDERS: ADMIT Family Medicine; ATTEND Internal Medicine
DX: J18.9 Pneumonia, unspecified organism (principal); I50.33 Acute on chronic diastolic (congestive) heart failure; J44.0 Chronic obstructive pulmonary disease with (acute) lower respiratory infection; J96.11 Chronic respiratory failure with hypoxia; J44.1 Chronic obstructive pulmonary disease with (acute) exacerbation; J45.909 Unspecified asthma, uncomplicated; R91.8 Other nonspecific abnormal finding of lung field; I27.23 Pulmonary hypertension due to lung diseases and hypoxia; I27.81 Cor pulmonale (chronic); I11.0 Hypertensive heart disease with heart failure; K22.70 Barrett's esophagus without dysplasia; G47.33 Obstructive sleep apnea (adult) (pediatric); F41.9 Anxiety disorder, unspecified; H90.3 Sensorineural hearing loss, bilateral; F17.200 Nicotine dependence, unspecified, uncomplicated; E78.5 Hyperlipidemia, unspecified; I70.248 Atherosclerosis of native arteries of left leg with ulceration of other part of lower leg; K21.9 Gastro-esophageal reflux disease without esophagitis; D50.9 Iron deficiency anemia, unspecified; Z99.81 Dependence on supplemental oxygen; Z79.82 Long term (current) use of aspirin; Z79.02 Long term (current) use of antithrombotics/antiplatelets; Z79.52 Long term (current) use of systemic steroids; Z79.899 Other long term (current) drug therapy; Z98.42 Cataract extraction status, left eye; Z98.41 Cataract extraction status, right eye; Z91.013 Allergy to seafood; Z91.018 Allergy to other foods; Z95.820 Peripheral vascular angioplasty status with implants and grafts

== ENCOUNTER 2024-04-21 02:34 | Emergency (ER) | payer MEDICARE, MEDICAID ==
[~2024-04-21] VITALS: Ht 170.2 cm; Wt 105.5 kg
[~2024-04-21 02:34] MED LIST changes: +AMOX875T2 PO; +ASPI81TA26 PO; +AZIT500T5 PO; +CLOP75TA99 PO; +IPRA0.00 INH; +LASI40TA9 PO; +METO25TA PO; +POTA-151 PO
[2024-04-21 03:38] LABS: HEMATOCRIT 29.2 % (42.0-52.0); HEMOGLOBIN 8.5 g/dl (13.5-17.5); LYMPH # 0.2 10^3/uL (1.5-5.0); LYMPH % 4.1 % (24.0-44.0); MEAN CORPUSCULAR HEMOGLOBIN 28.7 pg (27.0-33.0); MEAN CORPUSCULAR HGB CONC 29.1 g/dl (32.0-36.5); MEAN CORPUSCULAR VOLUME 98.6 fl (80.0-96.0); MONO # 0.1 10^3/uL (0.0-0.8); MONO % 1.4 % (2.0-8.0); NEUTROPHILS # 4.1 10^3/uL (1.5-8.5); NEUTROPHILS % 92.9 % (36.0-66.0); PLATELET COUNT, AUTOMATED 201 10^3/uL (150-450); RED BLOOD COUNT 2.96 10^6/uL (4.30-6.10); WHITE BLOOD COUNT 4.4 10^3/uL (4.0-10.0)
[2024-04-21 04:06] LABS: ALBUMIN 3.3 G/DL (3.2-5.2); BILIRUBIN,DIRECT 0.2 MG/DL (<0.4); BILIRUBIN,TOTAL 0.4 MG/DL (0.3-1.2); CK-MB VALUE MASS 2.1 NG/ML (<3.6); MB/CK RELATIVE INDEX 2.23 (< OR =4); TOTAL PROTEIN 6.9 G/DL (5.7-8.2)
[2024-04-21 04:08] LABS: THYROID STIMULATING HORMONE 0.489 uIU/ML (0.55-4.78)
[2024-04-21 05:33] LABS: CK-MB VALUE MASS 1.9 NG/ML (<3.6)
[2024-04-21 05:34] LABS: CPK CREATINE PHOSPHOKINASE 117 U/L (46-171); MB/CK RELATIVE INDEX 1.62 (< OR =4)
[2024-04-21 05:35] LABS: BLOOD UREA NITROGEN 22 MG/DL (9-23); CALCIUM LEVEL 9.1 MG/DL (8.3-10.6); CARBON DIOXIDE LEVEL 36 MMOL/L (20-31); CHLORIDE LEVEL 98 MMOL/L (98-107); CREATININE FOR GFR 1.08 MG/DL (0.70-1.30); GLOMERULAR FILTRATION RATE > 60.0 (>42); GLUCOSE, FASTING 146 MG/DL (74-106); POTASSIUM SERUM 3.6 MMOL/L (3.5-5.1); SODIUM LEVEL 144 MMOL/L (136-145)
[2024-04-21 08:04] VITALS: O2SAT 95
[2024-04-21 09:30] VITALS: BP 166/78; TEMP 99.2; O2SAT 99
== END 2024-04-21 09:41 | disposition home or self-care (01) ==
LOC: EDBD 02:34 → M ED 02:34
DX: I87.2 Venous insufficiency (chronic) (peripheral) (principal); J96.10 Chronic respiratory failure, unspecified whether with hypoxia or hypercapnia; Z99.81 Dependence on supplemental oxygen; D50.0 Iron deficiency anemia secondary to blood loss (chronic); I10 Essential (primary) hypertension; E78.5 Hyperlipidemia, unspecified; J45.909 Unspecified asthma, uncomplicated; J44.9 Chronic obstructive pulmonary disease, unspecified; Z87.891 Personal history of nicotine dependence; K22.70 Barrett's esophagus without dysplasia; R91.1 Solitary pulmonary nodule; Z79.01 Long term (current) use of anticoagulants; Z79.82 Long term (current) use of aspirin; Z79.899 Other long term (current) drug therapy; Z91.018 Allergy to other foods; Z91.013 Allergy to seafood

== ENCOUNTER 2024-04-28 00:52 | Emergency (ER) | payer MEDICARE, MEDICAID ==
[~2024-04-28] VITALS: Ht 170.2 cm; Wt 105.5 kg
[2024-04-28 02:11] LABS: BASO % 0.3 % (0.0-1.0); EOS # 0.2 10^3/uL (0.0-0.5); EOS % 2.3 % (0.0-3.0); HEMATOCRIT 26.5 % (42.0-52.0); HEMOGLOBIN 7.3 g/dl (13.5-17.5); LYMPH # 0.7 10^3/uL (1.5-5.0); LYMPH % 9.7 % (24.0-44.0); MEAN CORPUSCULAR HEMOGLOBIN 27.3 pg (27.0-33.0); MEAN CORPUSCULAR HGB CONC 27.5 g/dl (32.0-36.5); MEAN CORPUSCULAR VOLUME 99.3 fl (80.0-96.0); MONO # 0.5 10^3/uL (0.0-0.8); MONO % 6.5 % (2.0-8.0); NEUTROPHILS % 80.8 % (36.0-66.0); PLATELET COUNT, AUTOMATED 216 10^3/uL (150-450); RED BLOOD COUNT 2.67 10^6/uL (4.30-6.10); WHITE BLOOD COUNT 7.4 10^3/uL (4.0-10.0)
[2024-04-28 02:44] LABS: LIPASE 26 U/L (12-53)
[2024-04-28 02:47] LABS: ALBUMIN 2.8 G/DL (3.2-5.2); ALKALINE PHOSPHATASE 38 U/L (40-129); ALT/SGPT 11 U/L (7.0-40); AST/SGOT 11 U/L (<34); BILIRUBIN,DIRECT 0.1 MG/DL (<0.4); BILIRUBIN,TOTAL 0.4 MG/DL (0.3-1.2); BLOOD UREA NITROGEN 16 MG/DL (9-23); CALCIUM LEVEL 8.2 MG/DL (8.3-10.6); CARBON DIOXIDE LEVEL 33 MMOL/L (20-31); CHLORIDE LEVEL 105 MMOL/L (98-107); CREATININE FOR GFR 0.81 MG/DL (0.70-1.30); GLOMERULAR FILTRATION RATE > 60.0 (>42); GLUCOSE, FASTING 86 MG/DL (74-106); POTASSIUM SERUM 4.6 MMOL/L (3.5-5.1); SODIUM LEVEL 142 MMOL/L (136-145); TOTAL PROTEIN 5.6 G/DL (5.7-8.2)
[2024-04-28] MEDS: BISACODYL 10MG SUPP PR ONE (03:37)
[2024-04-28] MEDS: IPRATROPIUM 0.5MG/ALBUTEROL 2.5MG INH SOL UD 3ML (DUONEB) NEB ONE (06:52)
[2024-04-28] MEDS ORDERED: COMBAER6 INH (09:39)
[2024-04-28 10:00] VITALS: BP 125/62; TEMP 97.1; O2SAT 97
== END 2024-04-28 10:00 | disposition home or self-care (01) ==
LOC: EDBD 00:52 → M ED 00:52
DX: R10.9 Unspecified abdominal pain (principal); I10 Essential (primary) hypertension; E78.5 Hyperlipidemia, unspecified; J44.9 Chronic obstructive pulmonary disease, unspecified; F17.290 Nicotine dependence, other tobacco product, uncomplicated; K80.20 Calculus of gallbladder without cholecystitis without obstruction; Z79.02 Long term (current) use of antithrombotics/antiplatelets; Z79.899 Other long term (current) drug therapy; Z91.013 Allergy to seafood; Z91.018 Allergy to other foods

== ENCOUNTER → 2024-06-04 | Outpatient (CLI) | payer MEDICAID, MEDICARE ==
[~2024-06-04] MED LIST changes: -ADV500INH INH; +ADVA1AER10 INH
== END ==
LOC: M PLAIMG 12:24
PROVIDERS: ATTEND Student in an Organized Health Care Education/Training Program
DX: J18.9 Pneumonia, unspecified organism (principal); J98.11 Atelectasis; J98.6 Disorders of diaphragm; J90 Pleural effusion, not elsewhere classified; R91.1 Solitary pulmonary nodule; J43.9 Emphysema, unspecified; I51.7 Cardiomegaly; N28.1 Cyst of kidney, acquired; D35.02 Benign neoplasm of left adrenal gland

== ENCOUNTER → 2024-06-17 | Outpatient (POV) | payer MEDICARE, MEDICAID ==
[~2024-06-17] VITALS: Ht 170.2 cm; Wt 105.4 kg
[~2024-06-17] MED LIST changes: +VARE1TAB7 PO
[2024-06-17 11:05] VITALS: BP 136/68; O2SAT 97
== END ==
LOC: M IRPOV 10:42
PROVIDERS: ATTEND Radiology Diagnostic Radiology
DX: I70.222 Atherosclerosis of native arteries of extremities with rest pain, left leg (principal); J44.9 Chronic obstructive pulmonary disease, unspecified; I50.32 Chronic diastolic (congestive) heart failure; F17.210 Nicotine dependence, cigarettes, uncomplicated; Z79.01 Long term (current) use of anticoagulants; Z79.82 Long term (current) use of aspirin; Z91.013 Allergy to seafood; Z91.018 Allergy to other foods; Z95.828 Presence of other vascular implants and grafts

== ENCOUNTER 2024-07-01 17:28 | Emergency (ER) | payer MEDICARE, MEDICAID ==
[~2024-07-01] VITALS: Ht 170.2 cm; Wt 98.1 kg
[~2024-07-01 17:28] MED LIST changes: +VANC125C13 PO; -VANC125C3 PO
[2024-07-01 17:47] VITALS: BP 151/67; TEMP 97.7
[2024-07-01 19:18] LABS: EOS % 0.4 % (0.0-3.0); HEMATOCRIT 28.9 % (42.0-52.0); HEMOGLOBIN 8.1 g/dl (13.5-17.5); LYMPH # 0.6 10^3/uL (1.5-5.0); LYMPH % 9.2 % (24.0-44.0); MEAN CORPUSCULAR HEMOGLOBIN 25.2 pg (27.0-33.0); MONO # 0.6 10^3/uL (0.0-0.8); MONO % 8.6 % (2.0-8.0); NEUTROPHILS # 5.6 10^3/uL (1.5-8.5); NEUTROPHILS % 81.4 % (36.0-66.0); PLATELET COUNT, AUTOMATED 194 10^3/uL (150-450); RED BLOOD COUNT 3.21 10^6/uL (4.30-6.10); WHITE BLOOD COUNT 6.9 10^3/uL (4.0-10.0)
[2024-07-01 19:39] LABS: CK-MB VALUE MASS 1.6 NG/ML (<3.6)
[2024-07-01 19:40] LABS: ALBUMIN 3.3 G/DL (3.2-5.2); BILIRUBIN,DIRECT 0.2 MG/DL (<0.4); BILIRUBIN,TOTAL 0.6 MG/DL (0.3-1.2); CPK CREATINE PHOSPHOKINASE 34 U/L (46-171); MAGNESIUM LEVEL 1.7 MG/DL (1.8-2.4)
[2024-07-01 19:44] LABS: BLOOD UREA NITROGEN 23 MG/DL (9-23); CALCIUM LEVEL 8.6 MG/DL (8.3-10.6); CARBON DIOXIDE LEVEL > 40.0 MMOL/L (20-31); CHLORIDE LEVEL 98 MMOL/L (98-107); CREATININE FOR GFR 1.14 MG/DL (0.70-1.30); FREE T4 0.97 NG/DL (0.89-1.76); GLOMERULAR FILTRATION RATE > 60.0 (>42); GLUCOSE, FASTING 106 MG/DL (74-106); POTASSIUM SERUM 2.4 MMOL/L (3.5-5.1); SODIUM LEVEL 148 MMOL/L (136-145); THYROID STIMULATING HORMONE 1.268 uIU/ML (0.55-4.78)
[2024-07-01] MEDS ORDERED: ISOVUE-370 76% 100ML VIAL As Ordered ONE (20:02)
[2024-07-01] MEDS: MAG SULF 1GM/100ML (MAG RUN) 1 GM in IV 1 EA IV ONE (20:29)
[2024-07-01] MEDS: POTASSIUM CHLORIDE 10% LIQ 20MEQ/15ML UDC PO ONE (20:29)
[2024-07-01] MEDS: ONDANSETRON 4MG 2ML VIAL IV ONE (20:29)
[2024-07-01] MEDS: HYDROMORPHONE HCL 0.5 MG/ 0.5 ML SYRINGE IV PRN (20:29)
[2024-07-01 22:00] VITALS: O2SAT 94
[2024-07-01 23:11] LABS: PHOSPHORUS LEVEL 3.3 MG/DL (2.4-5.1)
[2024-07-03] MEDS ORDERED: FURO40TA2 PO (09:58)
[2024-07-03] MEDS ORDERED: ASPI-615 PO (09:58)
[2024-07-03] MEDS ORDERED: VARE1TAB7 PO (09:58)
[2024-07-03] MEDS ORDERED: CLOP75TA2 PO (09:58)
== END 2024-07-02 00:09 | disposition left against medical advice (07) ==
LOC: M ED 17:28 → EDBD 17:28 → M ED 07-02 00:09
DX: E83.42 Hypomagnesemia (principal); E87.6 Hypokalemia; Z53.9 Procedure and treatment not carried out, unspecified reason; I48.91 Unspecified atrial fibrillation; I11.0 Hypertensive heart disease with heart failure; K21.9 Gastro-esophageal reflux disease without esophagitis; E78.5 Hyperlipidemia, unspecified; J44.9 Chronic obstructive pulmonary disease, unspecified; Z79.899 Other long term (current) drug therapy; Z91.018 Allergy to other foods; Z91.013 Allergy to seafood

== ENCOUNTER 2024-07-03 01:12 | Inpatient (IN) | payer MEDICARE, MEDICAID ==
[2024-07-03] VITALS (7 sets, daily range): BP systolic 113–136; BP diastolic 56–62; TEMP 97.4–97.8; O2SAT 90–98
[~2024-07-03] VITALS: Ht 170.2 cm; Wt 102.0 kg
[2024-07-03 01:55] LABS: VENOUS BASE EXCESS 8.6 (-2.0-2.0); VENOUS O2 SATURATION 57.6 % (60.0-80.0); VENOUS PARTIAL PRESSURE CO2 79.3 mmHg (38.0-50.0); VENOUS PARTIAL PRESSURE O2 33.8 mmHg (30.0-50.0); VENOUS PH 7.287 UNITS (7.330-7.430); VENOUS STANDARD HCO3 31.6 MMOL/L; VENOUS TOTAL CO2 39.5 MMOL/L (24.0-28.0)
[2024-07-03 02:03] LABS: ABG BASE EXCESS 9.5 (-2.0-2.0); ABG HCO3 37.2 MMOL/L (22.0-26.0); ABG PARTIAL PRESSURE O2 87.2 mmHg (75.0-100.0); ABG STANDARD HCO3 33.3 MMOL/L. (22.0-26.0); ABG TOTAL CO2 39.5 MMOL/L (23.0-31.0)
[2024-07-03 02:03] LABS: BASO % 0.2 % (0.0-1.0); EOS # 0.1 10^3/uL (0.0-0.5); EOS % 0.5 % (0.0-3.0); HEMATOCRIT 31.8 % (42.0-52.0); HEMOGLOBIN 8.2 g/dl (13.5-17.5); LYMPH # 0.5 10^3/uL (1.5-5.0); LYMPH % 4.3 % (24.0-44.0); MEAN CORPUSCULAR HGB CONC 25.8 g/dl (32.0-36.5); MEAN CORPUSCULAR VOLUME 93.3 fl (80.0-96.0); MONO % 8.6 % (2.0-8.0); NEUTROPHILS # 9.5 10^3/uL (1.5-8.5); NEUTROPHILS % 85.9 % (36.0-66.0); PLATELET COUNT, AUTOMATED 217 10^3/uL (150-450); RED BLOOD COUNT 3.41 10^6/uL (4.30-6.10); WHITE BLOOD COUNT 11.1 10^3/uL (4.0-10.0)
[2024-07-03 02:04] LABS: ABG PARTIAL PRESSURE CO2 73.9 mmHg (35.0-45.0)
[2024-07-03] MEDS: NS (Normal Saline) 0.9% 1,000 ML IV ONE (02:20)
[2024-07-03] MEDS: IPRATROPIUM 0.5MG/ALBUTEROL 2.5MG INH SOL UD 3ML (DUONEB) NEB ONE ×2 (02:45)
[2024-07-03 02:51] LABS: ALBUMIN 3.2 G/DL (3.2-5.2); ALKALINE PHOSPHATASE 42 U/L (40-129); AST/SGOT 13 U/L (<34); BILIRUBIN,DIRECT 0.2 MG/DL (<0.4); BILIRUBIN,TOTAL 0.5 MG/DL (0.3-1.2); BLOOD UREA NITROGEN 35 MG/DL (9-23); CALCIUM LEVEL 8.3 MG/DL (8.3-10.6); CARBON DIOXIDE LEVEL 40 MMOL/L (20-31); CHLORIDE LEVEL 96 MMOL/L (98-107); CK-MB VALUE MASS 4.4 NG/ML (<3.6); CPK CREATINE PHOSPHOKINASE 60 U/L (46-171); CREATININE FOR GFR 2.29 MG/DL (0.70-1.30); GLOMERULAR FILTRATION RATE 29.6 (>42); GLUCOSE, FASTING 93 MG/DL (74-106); MB/CK RELATIVE INDEX 7.33 (< OR =4); SODIUM LEVEL 144 MMOL/L (136-145); TOTAL PROTEIN 5.8 G/DL (5.7-8.2)
[2024-07-03 03:02] LABS: ALT/SGPT < 9 U/L (7.0-40)
[2024-07-03] MEDS ORDERED: HEPARIN SOD (PORCINE) 5000UNITS/ML 1ML VIAL/SYRINGE IV PRN (03:15)
[2024-07-03 03:49] LABS: HEMATOCRIT 29.8 % (42.0-52.0); HEMOGLOBIN 7.7 g/dl (13.5-17.5); MEAN CORPUSCULAR HGB CONC 25.8 g/dl (32.0-36.5); MEAN CORPUSCULAR VOLUME 92.8 fl (80.0-96.0); PLATELET COUNT, AUTOMATED 172 10^3/uL (150-450); RED BLOOD COUNT 3.21 10^6/uL (4.30-6.10); WHITE BLOOD COUNT 10.6 10^3/uL (4.0-10.0)
[2024-07-03] MEDS: HEPARIN DRIP 25,000 UNITS in IV 1 EA IV SCH (04:07)
[2024-07-03] MEDS: ASPIRIN 325 MG TAB PO ONE (04:08)
[2024-07-03 04:30] LABS: CK-MB VALUE MASS 4.7 NG/ML (<3.6)
[2024-07-03 04:37] LABS: MB/CK RELATIVE INDEX 10.44 (< OR =4)
[2024-07-03 06:45] LABS: KETONE, URINE AUTO RFX NEGATIVE (NEGATIVE); LEUKOCYTE ESTERASE UR AUTO RFX NEGATIVE (NEGATIVE); NITRITE, URINE AUTO RFX NEGATIVE (NEGATIVE); RBC, URINE AUTO RFX 6 /HPF (0-3); SQUAM EPITHELIAL CELL UR AURFX 0 /HPF (0-6); WBC, URINE AUTO RFX 2 /HPF (0-3)
[2024-07-03] MEDS: CEFEPIME HCL 2 GM in DEXTROSE 5% (D5W) ADV/MINI-BAG 50 ML IV ONE (07:10)
[2024-07-03] MEDS: TIOTROPIUM INHALER/CAPSULE (SPIRIVA) INH SCH (08:00)
[2024-07-03] MEDS ORDERED: MED REC IN PROGRESS XX SCH (08:00)
[2024-07-03] MEDS: ADVAIR HFA 230/21MCG INHALER INH SCH (08:00)
[2024-07-03 08:08] LABS: ABG BASE EXCESS 9.6 (-2.0-2.0); ABG HCO3 36.4 MMOL/L (22.0-26.0); ABG O2 SATURATION 93.4 % (95.0-99.0); ABG PARTIAL PRESSURE O2 73.6 mmHg (75.0-100.0); ABG STANDARD HCO3 33.3 MMOL/L. (22.0-26.0); ABG TOTAL CO2 38.4 MMOL/L (23.0-31.0); ABG pH (ARTERIAL) 7.367 UNITS (7.350-7.450)
[2024-07-03 08:10] LABS: ABG PARTIAL PRESSURE CO2 64.8 mmHg (35.0-45.0)
[2024-07-03] MEDS ORDERED: VARE1TAB7 PO (09:58)
[2024-07-03] MEDS ORDERED: ASPI-615 PO (09:58)
[2024-07-03] MEDS ORDERED: FURO40TA2 PO (09:58)
[2024-07-03] MEDS ORDERED: CLOP75TA2 PO (09:58)
[2024-07-03] MEDS ORDERED: HOME MED LIST COMPLETE! XX SCH (10:00)
[2024-07-03 10:49] LABS: BASO % 0.1 % (0.0-1.0); EOS # 0.1 10^3/uL (0.0-0.5); EOS % 0.6 % (0.0-3.0); HEMATOCRIT 29.3 % (42.0-52.0); HEMOGLOBIN 7.8 g/dl (13.5-17.5); LYMPH # 0.5 10^3/uL (1.5-5.0); MEAN CORPUSCULAR HEMOGLOBIN 24.3 pg (27.0-33.0); MEAN CORPUSCULAR HGB CONC 26.6 g/dl (32.0-36.5); MEAN CORPUSCULAR VOLUME 91.3 fl (80.0-96.0); MONO # 0.6 10^3/uL (0.0-0.8); MONO % 6.4 % (2.0-8.0); NEUTROPHILS # 7.7 10^3/uL (1.5-8.5); NEUTROPHILS % 86.3 % (36.0-66.0); PLATELET COUNT, AUTOMATED 197 10^3/uL (150-450); RED BLOOD COUNT 3.21 10^6/uL (4.30-6.10); WHITE BLOOD COUNT 8.9 10^3/uL (4.0-10.0)
[2024-07-03] MEDS ORDERED: LR 1,000 ML IV SCH (10:55)
[2024-07-03] MEDS ORDERED: PIPERACILLIN/TAZOBACTAM SOD 4.5 GM in DEXTROSE 5% (D5W) ADV/MINI-BAG 50 ML IV SCH (10:55)
[2024-07-03] MEDS ORDERED: MOM 30ML SUSPENSION UDC PO PRN (10:55)
[2024-07-03] MEDS ORDERED: MIRALAX *UNIT DOSE* 17GM PACKET PO PRN (10:55)
[2024-07-03 10:57] LABS: ERYTHROCYTE SEDIMENTATION RATE 9 mm/hr (0-20)
[2024-07-03 11:15] LABS: C REACTIVE PROTEIN QUANTITATIV 2.37 MG/DL (<1.0)
[2024-07-03 11:23] LABS: PROCALCITONIN 0.23 ng/ml
[2024-07-03 11:24] LABS: ALBUMIN 3.3 G/DL (3.2-5.2); CALCIUM LEVEL 8.4 MG/DL (8.3-10.6); CREATININE FOR GFR 2.18 MG/DL (0.70-1.30); GLOMERULAR FILTRATION RATE 31.4 (>42); PHOSPHORUS LEVEL 5.4 MG/DL (2.4-5.1); POTASSIUM SERUM 3.7 MMOL/L (3.5-5.1)
[2024-07-03] MEDS: IPRATROPIUM 0.5MG/ALBUTEROL 2.5MG INH SOL UD 3ML (DUONEB) NEB SCH (11:35)
[2024-07-03 11:45] LABS: BILIRUBIN,DIRECT 0.2 MG/DL (<0.4); BILIRUBIN,TOTAL 0.5 MG/DL (0.3-1.2); TOTAL PROTEIN 6.1 G/DL (5.7-8.2)
[2024-07-03] MEDS: predniSONE 10MG TAB PO SCH (14:00)
[2024-07-03] MEDS: OLANZapine INTRAMUSCULAR 10MG VIAL IM PRN (14:00)
[2024-07-03] MEDS: HEPARIN SOD (PORCINE) 5000UNITS/ML 1ML VIAL/SYRINGE SC SCH (14:00)
[2024-07-03] MEDS: DOCUSATE SODIUM 100MG CAPSULE PO SCH (14:26)
[2024-07-03] MEDS: CLOPIDOGREL 75 MG TAB PO SCH (14:26)
[2024-07-03] MEDS: ASPIRIN 81MG ENTERIC TABLET PO SCH (14:26)
[2024-07-03] MEDS: MONTELUKAST 10 MG TAB PO SCH (14:27)
[2024-07-03] MEDS: PRAVASTATIN 20 MG TAB PO SCH (14:27)
[2024-07-03] MEDS: FLUTICASONE PROP 0.05% NASAL SPRAY 16 GM (FLONASE) NARES SCH (14:27)
[2024-07-03] MEDS: OMEPRAZOLE 20MG CAP PO SCH (14:27)
[2024-07-03] MEDS: hydrOXYzine 50 MG TAB PO ONE (14:28)
[2024-07-03] MEDS ORDERED: PILL CUTTER 1 EACH XX PRN (15:35)
[2024-07-03] MEDS: PIPERACILLIN/TAZOBACTAM SOD 3.375 GM in DEXTROSE 5% (D5W) ADV/MINI-BAG 50 ML IV SCH (16:00)
[2024-07-03] MEDS ORDERED: HALOPERIDOL LACTATE 5MG/ML VIAL IM ONE (16:00)
[2024-07-03] MEDS ORDERED: OLANZapine INTRAMUSCULAR 10MG VIAL IM ONE (16:00)
[2024-07-03] MEDS: KCL 20MEQ IN 0.45NS 1000ML 1,000 ML IV SCH (19:26)
[2024-07-03] MEDS: SENNA 8.6 MG TAB (SENOKOT) PO SCH (20:06)
[2024-07-03] MEDS: ALBUTEROL SULFATE 2.5MG/0.5ML INH NEB SOLN INH PRN (22:40)
[2024-07-04] VITALS (12 sets, daily range): BP systolic 124–147; BP diastolic 58–91; TEMP 97–98.1; O2SAT 83–100
[2024-07-04 05:21] LABS: HEMOGLOBIN 7.5 g/dl (13.5-17.5); MEAN CORPUSCULAR HEMOGLOBIN 23.9 pg (27.0-33.0); MEAN CORPUSCULAR HGB CONC 26.8 g/dl (32.0-36.5); MEAN CORPUSCULAR VOLUME 89.2 fl (80.0-96.0); PLATELET COUNT, AUTOMATED 198 10^3/uL (150-450); RED BLOOD COUNT 3.14 10^6/uL (4.30-6.10); WHITE BLOOD COUNT 10.6 10^3/uL (4.0-10.0)
[2024-07-04 05:46] LABS: CALCIUM LEVEL 8.3 MG/DL (8.3-10.6); CREATININE FOR GFR 1.59 MG/DL (0.70-1.30); GLOMERULAR FILTRATION RATE 45.2 (>42)
[2024-07-04] MEDS: POTASSIUM CHLORIDE 10MEQ SR TABLET PO ONE (06:21)
[2024-07-04] MEDS: cefTRIAXone SOD 2 GM in DEXTROSE 5% (D5W) ADV/MINI-BAG 50 ML IV SCH (11:23)
[2024-07-04] MEDS: ACETAMINOPHEN 325 MG TAB PO PRN (20:03)
[2024-07-04] MEDS: TAMSULOSIN 0.4 MG CAP PO SCH (20:03)
[2024-07-05] VITALS (12 sets, daily range): BP systolic 113–148; BP diastolic 57–70; TEMP 97.4–98.5; O2SAT 90–97
[2024-07-05 05:36] LABS: HEMATOCRIT 26.5 % (42.0-52.0); MEAN CORPUSCULAR HEMOGLOBIN 23.9 pg (27.0-33.0); MEAN CORPUSCULAR HGB CONC 26.4 g/dl (32.0-36.5); MEAN CORPUSCULAR VOLUME 90.4 fl (80.0-96.0); PLATELET COUNT, AUTOMATED 183 10^3/uL (150-450); RED BLOOD COUNT 2.93 10^6/uL (4.30-6.10); WHITE BLOOD COUNT 8.3 10^3/uL (4.0-10.0)
[2024-07-05 05:52] LABS: IRON (FE) 17 UG/DL (65-175); PERCENT SATURATION 4.5 % (19.7-50.0); TOTAL IRON BINDING CAPACITY 381 UG/DL (250-425)
[2024-07-05 05:54] LABS: BLOOD UREA NITROGEN 19 MG/DL (9-23); CALCIUM LEVEL 7.7 MG/DL (8.3-10.6); CARBON DIOXIDE LEVEL 39 MMOL/L (20-31); CHLORIDE LEVEL 101 MMOL/L (98-107); CREATININE FOR GFR 0.96 MG/DL (0.70-1.30); GLOMERULAR FILTRATION RATE > 60.0 (>42); GLUCOSE, FASTING 132 MG/DL (74-106); POTASSIUM SERUM 3.8 MMOL/L (3.5-5.1); SODIUM LEVEL 143 MMOL/L (136-145)
[2024-07-05] MEDS: METOPROLOL TART 25 MG TABLET PO SCH (10:04)
[2024-07-05] MEDS: LevoFLOXacin 750 MG TABLET PO SCH (12:12)
[2024-07-05 12:43] LABS: FERRITIN 11.9 NG/ML (10.5-307.3)
[2024-07-05] MEDS: FUROSEMIDE 40 MG TAB PO SCH (14:38)
[2024-07-05] MEDS: FERRIC CARBOXYMALTOSE INJ 750 MG, VIAL MATE ADAPTER 1 EACH in NS 100 ML IV ONE (16:48)
[2024-07-05] MEDS: NICOTINE 14 MG/24 HR TRANSDERMAL TD PRN (16:49)
[2024-07-06 03:07] VITALS: BP 121/72; TEMP 97.5; O2SAT 91
[2024-07-06 07:39] VITALS: BP 123/64; TEMP 97.3; O2SAT 90
[2024-07-06 08:52] LABS: HEMATOCRIT 30.8 % (42.0-52.0); HEMOGLOBIN 8.3 g/dl (13.5-17.5); MEAN CORPUSCULAR HEMOGLOBIN 25.2 pg (27.0-33.0); MEAN CORPUSCULAR HGB CONC 26.9 g/dl (32.0-36.5); MEAN CORPUSCULAR VOLUME 93.3 fl (80.0-96.0); PLATELET COUNT, AUTOMATED 183 10^3/uL (150-450); WHITE BLOOD COUNT 8.7 10^3/uL (4.0-10.0)
[2024-07-06 09:01] VITALS: BP 123/64
[2024-07-06 09:18] LABS: BLOOD UREA NITROGEN 13 MG/DL (9-23); CALCIUM LEVEL 8.5 MG/DL (8.3-10.6); CARBON DIOXIDE LEVEL 40 MMOL/L (20-31); CHLORIDE LEVEL 99 MMOL/L (98-107); GLOMERULAR FILTRATION RATE > 60.0 (>42); GLUCOSE, FASTING 106 MG/DL (74-106); POTASSIUM SERUM 4.1 MMOL/L (3.5-5.1); SODIUM LEVEL 146 MMOL/L (136-145)
== END 2024-07-06 11:36 | disposition left against medical advice (07) | DRG 871 ==
LOC: M ED 01:12 → EDBD 01:12 → M ED INP 10:55 → EEVIPCON 10:55 → M PCU 12:36
PROVIDERS: ADMIT Student in an Organized Health Care Education/Training Program; ATTEND Student in an Organized Health Care Education/Training Program
PROC: 30233N1 Transfusion of Nonautologous Red Blood Cells into Peripheral Vein, Percutaneous Approach (ICD-10-PCS; 2024-07-05)
PROC: B246ZZZ Ultrasonography of Right and Left Heart (ICD-10-PCS; principal; 2024-07-06)
DX: A41.9 Sepsis, unspecified organism (principal); J96.21 Acute and chronic respiratory failure with hypoxia; J96.22 Acute and chronic respiratory failure with hypercapnia; I21.A1 Myocardial infarction type 2; J15.69 Pneumonia due to other Gram-negative bacteria; G93.41 Metabolic encephalopathy; N17.9 Acute kidney failure, unspecified; J44.0 Chronic obstructive pulmonary disease with (acute) lower respiratory infection; E87.20 Acidosis, unspecified; F17.210 Nicotine dependence, cigarettes, uncomplicated; K22.711 Barrett's esophagus with high grade dysplasia; I73.9 Peripheral vascular disease, unspecified; I27.81 Cor pulmonale (chronic); I27.23 Pulmonary hypertension due to lung diseases and hypoxia; E78.5 Hyperlipidemia, unspecified; I10 Essential (primary) hypertension; E87.6 Hypokalemia; K21.9 Gastro-esophageal reflux disease without esophagitis; Z79.899 Other long term (current) drug therapy; Z91.018 Allergy to other foods; Z99.81 Dependence on supplemental oxygen; Z91.013 Allergy to seafood; G47.33 Obstructive sleep apnea (adult) (pediatric); Z95.828 Presence of other vascular implants and grafts; Z98.41 Cataract extraction status, right eye; Z98.42 Cataract extraction status, left eye; Z79.82 Long term (current) use of aspirin; Z79.52 Long term (current) use of systemic steroids; R33.9 Retention of urine, unspecified; D64.9 Anemia, unspecified

== ENCOUNTER → 2024-11-17 | Outpatient (CLI) | payer MEDICARE ==
[~2024-11-17] MED LIST changes: +ASPI-615 PO; -PRAV40TA2 PO; +PRAV40TA85 PO
== END ==
LOC: M RAD 11:30
PROVIDERS: ATTEND Internal Medicine Pulmonary Disease
DX: J44.9 Chronic obstructive pulmonary disease, unspecified (principal)

== ENCOUNTER → 2025-01-28 | Outpatient (REF) | payer MEDICARE, MEDICAID ==
[2025-01-29 16:50] LABS: APPEARANCE, URINE CLEAR (CLEAR); BACTERIA, URINE AUTO NEGATIVE (NEGATIVE); BILIRUBIN, URINE AUTO NEGATIVE (NEGATIVE); BLOOD, URINE BLOOD NEGATIVE (NEGATIVE); GLUCOSE, URINE (UA) AUTO NEGATIVE (NEGATIVE); KETONE, URINE AUTO NEGATIVE (NEGATIVE); LEUKOCYTE ESTERASE, URINE AUTO NEGATIVE (NEGATIVE); MUCUS, URINE SMALL (NEGATIVE); NITRITE, URINE AUTO NEGATIVE (NEGATIVE); PROTEIN, URINE AUTO NEGATIVE (NEGATIVE); RBC, URINE AUTO 0 /HPF (0-3); SPECIFIC GRAVITY URINE AUTO 1.016 (1.002-1.035); SQUAMOUS EPITHELIAL CELL UR AU 1 /HPF (0-6); UROBILINOGEN, URINE AUTO 0.2 mg/dL (0.0-2.0); WBC, URINE AUTO 2 /HPF (0-3)
== END ==
LOC: M SFHCPLAZ 13:32
PROVIDERS: ATTEND Physician Assistant
DX: R39.11 Hesitancy of micturition (principal)

== ENCOUNTER → 2025-02-13 | Outpatient (REF) | payer MEDICARE | LOC: M SFHCPLAZ 18:50 | PROVIDERS: ATTEND Family Medicine | DX: Z53.9 Procedure and treatment not carried out, unspecified reason (principal) ==

== ENCOUNTER 2025-03-22 03:55 | Emergency (ER) | payer MEDICARE ==
[~2025-03-22] VITALS: Ht 167.6 cm; Wt 105.5 kg
[~2025-03-22 03:55] MED LIST changes: -ROSU10TA61 PO; +ROSU10TA90 PO
[2025-03-22 05:27] LABS: BASO # 0.1 10^3/uL (0.0-0.2); BASO % 0.8 % (0.0-1.0); EOS # 0.2 10^3/uL (0.0-0.5); EOS % 2.7 % (0.0-3.0); LYMPH # 0.8 10^3/uL (1.5-5.0); LYMPH % 12.7 % (24.0-44.0); MONO # 0.6 10^3/uL (0.0-0.8); MONO % 8.4 % (2.0-8.0); NEUTROPHILS # 4.9 10^3/uL (1.5-8.5); NEUTROPHILS % 75.2 % (36.0-66.0); PLATELET COUNT, AUTOMATED 191 10^3/uL (150-450)
[2025-03-22 05:51] LABS: CALCIUM LEVEL 8.6 MG/DL (8.3-10.6); CARBON DIOXIDE LEVEL 35.0 MMOL/L (20-31); CHLORIDE LEVEL 103.0 MMOL/L (98-107); CREATININE FOR GFR 1.32 MG/DL (0.70-1.30); GLOMERULAR FILTRATION RATE 55.2 (>42); MAGNESIUM LEVEL 1.7 MG/DL (1.8-2.4); POTASSIUM SERUM 4.2 MMOL/L (3.5-5.1); SODIUM LEVEL 146.0 MMOL/L (136-145)
[2025-03-22] MEDS: MAG SULF 1GM/100ML (MAG RUN) 1 GM in IV 1 EA IV ONE (06:08)
[2025-03-22] MEDS: IPRATROPIUM 0.5 MG/ALBUTEROL 2.5 MG INH SOL UD 3 ML NEB ONE (06:10)
[2025-03-22] MEDS ORDERED: LEVO75TAB PO (06:54)
[2025-03-22 07:33] VITALS: BP 142/76; TEMP 97.8; O2SAT 92
== END 2025-03-22 07:47 | disposition home or self-care (01) ==
LOC: M ED 03:55
DX: J44.1 Chronic obstructive pulmonary disease with (acute) exacerbation (principal); I48.91 Unspecified atrial fibrillation; K21.9 Gastro-esophageal reflux disease without esophagitis; E78.5 Hyperlipidemia, unspecified; Z79.82 Long term (current) use of aspirin; Z79.899 Other long term (current) drug therapy; Z91.018 Allergy to other foods; Z91.013 Allergy to seafood
CPT/HCPCS: 71046; 80048; 83735; 85025; 87486; 87581; 87633; 87798; 93005; 99284; J3475

== ENCOUNTER 2025-03-26 09:30 | Inpatient (IN) | payer MEDICARE ==
[2025-03-26] VITALS (63 sets, daily range): BP systolic 95–160; BP diastolic 42–98; TEMP 97.8–98.7; O2SAT 82–100
[~2025-03-26] VITALS: Ht 167.6 cm; Wt 115.0 kg
[~2025-03-26 09:30] MED LIST changes: +LEVO75TAB PO
[2025-03-26] MEDS: LIDOCAINE 2% 5 ML JELLY UROJET TOP ONE (10:15)
[2025-03-26] MEDS ORDERED: fentaNYL CITRATE/NaCl 1,000 MCG in IV 1 EA IV SCH (10:15)
[2025-03-26] MEDS ORDERED: FENTANYL DRIP LOCK BOX KEY 1 EACH XX PRN (10:15)
[2025-03-26] MEDS ORDERED: MIDAZOLAM INJ 2 MG/2 ML VIAL IV ONE (10:15)
[2025-03-26] MEDS ORDERED: MIDAZOLAM 5 MG/ML 1 ML VIAL As Ordered ONE (10:17)
[2025-03-26] MEDS: MIDAZOLAM 5 MG/ML 1 ML VIAL IV STA (10:18)
[2025-03-26] MEDS ORDERED: NOREPINEPHRINE 4 MG IN D5W 250 ML IVBAG (16 MCG/ML) As Ordered ONE (10:22)
[2025-03-26] MEDS: MORPHINE 2 MG/ML 1 ML VIAL IV ONE (10:23)
[2025-03-26 10:26] LABS: VENOUS BASE EXCESS -14.6 (-2.0-2.0); VENOUS HCO3 14.9 MMOL/L (23.0-27.0); VENOUS O2 SATURATION 95.4 % (60.0-80.0); VENOUS PARTIAL PRESSURE CO2 55.0 mmHg (38.0-50.0); VENOUS PARTIAL PRESSURE O2 97.9 mmHg (30.0-50.0); VENOUS PH 7.051 UNITS (7.330-7.430); VENOUS STANDARD HCO3 12.8 MMOL/L; VENOUS TOTAL CO2 16.6 MMOL/L (24.0-28.0)
[2025-03-26] MEDS: NOREPINEPHRINE 4MG IN D5 250ML 4 MG in IV 1 EA IV SCH ×2 (10:27→13:24)
[2025-03-26] MEDS ORDERED: LEVO1TAB40 PO (10:31)
[2025-03-26] MEDS ORDERED: TAMS-18 PO (10:31)
[2025-03-26 10:37] LABS: ABG BASE EXCESS -6.4 (-2.0-2.0); ABG HCO3 24.5 MMOL/L (22.0-26.0); ABG O2 SATURATION 99.5 % (95.0-99.0); ABG PARTIAL PRESSURE O2 264.3 mmHg (75.0-100.0); ABG STANDARD HCO3 19.3 MMOL/L. (22.0-26.0); ABG TOTAL CO2 26.9 MMOL/L (23.0-31.0)
[2025-03-26] MEDS ORDERED: FINA5TAB2 PO (10:39)
[2025-03-26] MEDS ORDERED: HOME MED LIST COMPLETE! XX SCH (10:40)
[2025-03-26 10:41] LABS: ABG PARTIAL PRESSURE CO2 78.2 mmHg (35.0-45.0); ABG pH (ARTERIAL) 7.114 UNITS (7.350-7.450)
[2025-03-26 10:43] LABS: BASO # 0.0 10^3/uL (0.0-0.2); BASO % 0.1 % (0.0-1.0); EOS # 0.0 10^3/uL (0.0-0.5); EOS % 0.1 % (0.0-3.0); LYMPH # 0.8 10^3/uL (1.5-5.0); LYMPH % 11.5 % (24.0-44.0); MONO # 0.6 10^3/uL (0.0-0.8); MONO % 8.9 % (2.0-8.0); NEUTROPHILS # 5.3 10^3/uL (1.5-8.5); NEUTROPHILS % 74.5 % (36.0-66.0); PLATELET COUNT, AUTOMATED 110 10^3/uL (150-450)
[2025-03-26] MEDS ORDERED: VASOPRESSIN IN 0.9 % NACL 20 UNIT in IV 1 EA IV SCH (10:45)
[2025-03-26] MEDS ORDERED: BANO25TA PO (10:51)
[2025-03-26] MEDS: VASOPRESSIN IN 0.9 % NACL 20 UNIT in IV 1 EA IV SCH (10:53)
[2025-03-26] MEDS ORDERED: EPINEPHrine HCL INJ 4 MG in D5W 246 ML IV SCH (11:00)
[2025-03-26 11:04] LABS: INR 1.58
[2025-03-26 11:05] LABS: CPK CREATINE PHOSPHOKINASE 231 U/L (46-171)
[2025-03-26] MEDS: PIPERACILLIN/TAZOBACTAM SOD 4.5 GM in DEXTROSE 5% (D5W) ADV/MINI-BAG 50 ML IV ONE (11:08)
[2025-03-26] MEDS ORDERED: MIDAZOLAM 100MG/100ML-0.9%NACL 100 MG in IV 1 EA IV SCH (11:10)
[2025-03-26] MEDS: MIDAZOLAM 5 MG/ML 1 ML VIAL IV ONE ×2 (11:17→14:04)
[2025-03-26 11:21] LABS: ALT/SGPT 26 U/L (7.0-40); AST/SGOT 38 U/L (<34); CALCIUM LEVEL 4.1 MG/DL (8.3-10.6); CARBON DIOXIDE LEVEL 21 MMOL/L (20-31); CHLORIDE LEVEL 111 MMOL/L (98-107); CK-MB VALUE MASS 15.3 NG/ML (<3.6); CREATININE FOR GFR 3.09 MG/DL (0.70-1.30); GLOMERULAR FILTRATION RATE 19.9 (>42); MB/CK RELATIVE INDEX 6.62 (< OR =4); POTASSIUM SERUM 2.8 MMOL/L (3.5-5.1); SODIUM LEVEL 145 MMOL/L (136-145); THYROXINE (T4) 2.4 UG/DL (4.5-10.9)
[2025-03-26] MEDS ORDERED: KCL 10MEQ/100ML SWI (KRUN) 10 MEQ in IV 1 EA IV ONE (11:25)
[2025-03-26] MEDS ORDERED: POTASSIUM CHLORIDE 10MEQ/100ML SWI As Ordered ONE (11:26)
[2025-03-26] MEDS: MIDAZOLAM 100MG/100ML-0.9%NACL 100 MG in IV 1 EA IV SCH (11:28)
[2025-03-26] MEDS: KCL 10MEQ/100ML SWI (KRUN) 10 MEQ in IV 1 EA IV ONE (11:28)
[2025-03-26] MEDS: ALBUTEROL SULFATE 2.5 MG/0.5 ML INH CONCENTRATE NEB SOLN INH ONE (11:32)
[2025-03-26] MEDS: IPRATROPIUM 0.5 MG/ALBUTEROL 2.5 MG INH SOL UD 3 ML NEB ONE (11:32)
[2025-03-26] MEDS: NS (Normal Saline) 0.9% 1,000 ML IV ONE (11:32)
[2025-03-26] MEDS: CALCIUM GLUCONATE 1,000 MG in DEXTROSE 5% (D5W) MINI-BAG PLU 100 ML IV SCH (13:25)
[2025-03-26] MEDS: KCL 20MEQ IN 100ML SWI (KRUN) 20 MEQ in IV 1 EA IV SCH (13:25)
[2025-03-26] MEDS: PANTOPRAZOLE 40MG VIAL IV SCH (13:36)
[2025-03-26 14:58] LABS: ABG BASE EXCESS -6.0 (-2.0-2.0); ABG HCO3 24.6 MMOL/L (22.0-26.0); ABG O2 SATURATION 99.0 % (95.0-99.0); ABG PARTIAL PRESSURE O2 211.8 mmHg (75.0-100.0); ABG STANDARD HCO3 19.6 MMOL/L. (22.0-26.0); ABG TOTAL CO2 27.0 MMOL/L (23.0-31.0)
[2025-03-26 14:59] LABS: ABG PARTIAL PRESSURE CO2 76.3 mmHg (35.0-45.0); ABG pH (ARTERIAL) 7.127 UNITS (7.350-7.450)
[2025-03-26] MEDS: HEPARIN SOD 5000 UNITS/ML 1 ML VIAL/SYRINGE SC SCH (15:16)
[2025-03-26] MEDS: MAG SULF 1GM/100ML (MAG RUN) 1 GM in IV 1 EA IV SCH (15:50)
[2025-03-26] MEDS: IPRATROPIUM 0.5 MG/ALBUTEROL 2.5 MG INH SOL UD 3 ML NEB SCH (15:53)
[2025-03-26] MEDS ORDERED: KCL 20MEQ IN 100ML SWI (KRUN) 20 MEQ in IV 1 EA IV SCH (18:00)
[2025-03-26 19:03] LABS: VENOUS BASE EXCESS -4.3 (-2.0-2.0); VENOUS HCO3 25.5 MMOL/L (23.0-27.0); VENOUS O2 SATURATION 89.1 % (60.0-80.0); VENOUS PARTIAL PRESSURE CO2 70.9 mmHg (38.0-50.0); VENOUS PARTIAL PRESSURE O2 61.0 mmHg (30.0-50.0); VENOUS PH 7.173 UNITS (7.330-7.430); VENOUS STANDARD HCO3 20.7 MMOL/L; VENOUS TOTAL CO2 27.6 MMOL/L (24.0-28.0)
[2025-03-26] MEDS: GLYCOPYRROLATE INJ 0.2 MG/ML 2 ML VIAL NEB SCH (19:17)
[2025-03-26 19:52] LABS: CALCIUM LEVEL 7.7 MG/DL (8.3-10.6); CARBON DIOXIDE LEVEL 26.0 MMOL/L (20-31); CHLORIDE LEVEL 89.0 MMOL/L (98-107); CREATININE FOR GFR 5.65 MG/DL (0.70-1.30); GLOMERULAR FILTRATION RATE 9.6 (>42); MAGNESIUM LEVEL 2.3 MG/DL (1.8-2.4); POTASSIUM SERUM 5.3 MMOL/L (3.5-5.1); SODIUM LEVEL 128.0 MMOL/L (136-145)
[2025-03-26] MEDS: cefTRIAXone SOD 1 GM in DEXTROSE 5% (D5W) ADV/MINI-BAG 50 ML IV SCH (20:39)
[2025-03-26] MEDS: AZITHROMYCIN INJ 500 MG, VIAL MATE ADAPTER 1 EACH in NS 250 ML IV SCH (22:17)
[2025-03-27] VITALS (105 sets, daily range): BP systolic 67–158; BP diastolic 36–86; TEMP 97–98.2; O2SAT 90–99
[2025-03-27 03:58] LABS: BASO # 0.0 10^3/uL (0.0-0.2); BASO % 0.1 % (0.0-1.0); EOS # 0.0 10^3/uL (0.0-0.5); EOS % 0.0 % (0.0-3.0); LYMPH # 0.2 10^3/uL (1.5-5.0); LYMPH % 1.7 % (24.0-44.0); MONO # 0.4 10^3/uL (0.0-0.8); MONO % 2.9 % (2.0-8.0); NEUTROPHILS # 12.4 10^3/uL (1.5-8.5); NEUTROPHILS % 94.9 % (36.0-66.0); PLATELET COUNT, AUTOMATED 177 10^3/uL (150-450)
[2025-03-27 04:28] LABS: ALT/SGPT 46.0 U/L (7.0-40); AST/SGOT 85.0 U/L (<34); CALCIUM LEVEL 7.6 MG/DL (8.3-10.6); CARBON DIOXIDE LEVEL 24.0 MMOL/L (20-31); CHLORIDE LEVEL 93.0 MMOL/L (98-107); CREATININE FOR GFR 5.71 MG/DL (0.70-1.30); GLOMERULAR FILTRATION RATE 9.5 (>42); PHOSPHORUS LEVEL 5.3 MG/DL (2.4-5.1); POTASSIUM SERUM 5.4 MMOL/L (3.5-5.1); SODIUM LEVEL 128.0 MMOL/L (136-145)
[2025-03-27 08:13] LABS: ABG BASE EXCESS -1.2 (-2.0-2.0); ABG HCO3 23.5 MMOL/L (22.0-26.0); ABG O2 SATURATION 94.0 % (95.0-99.0); ABG PARTIAL PRESSURE CO2 39.5 mmHg (35.0-45.0); ABG PARTIAL PRESSURE O2 70.2 mmHg (75.0-100.0); ABG STANDARD HCO3 23.4 MMOL/L. (22.0-26.0); ABG TOTAL CO2 24.7 MMOL/L (23.0-31.0); ABG pH (ARTERIAL) 7.393 UNITS (7.350-7.450)
[2025-03-27 08:19] LABS: CPK CREATINE PHOSPHOKINASE 1399.0 U/L (46-171)
[2025-03-27 10:35] LABS: ALT/SGPT 42.0 U/L (7.0-40); AST/SGOT 77.0 U/L (<34); CALCIUM LEVEL 7.4 MG/DL (8.3-10.6); CARBON DIOXIDE LEVEL 25.0 MMOL/L (20-31); CHLORIDE LEVEL 93.0 MMOL/L (98-107); CREATININE FOR GFR 5.85 MG/DL (0.70-1.30); GLOMERULAR FILTRATION RATE 9.3 (>42); POTASSIUM SERUM 5.3 MMOL/L (3.5-5.1); SODIUM LEVEL 129.0 MMOL/L (136-145)
[2025-03-27] MEDS: METOPROLOL TART 25 MG TABLET PO SCH (14:36)
[2025-03-27 15:59] LABS: ALT/SGPT 42.0 U/L (7.0-40); AST/SGOT 81.0 U/L (<34); CALCIUM LEVEL 7.5 MG/DL (8.3-10.6); CARBON DIOXIDE LEVEL 25.0 MMOL/L (20-31); CHLORIDE LEVEL 91.0 MMOL/L (98-107); CREATININE FOR GFR 5.93 MG/DL (0.70-1.30); GLOMERULAR FILTRATION RATE 9.1 (>42); POTASSIUM SERUM 5.1 MMOL/L (3.5-5.1); SODIUM LEVEL 128.0 MMOL/L (136-145)
[2025-03-27] MEDS: AMIODARONE HCL 150 MG in IV 1 EA IV SCH (18:37)
[2025-03-27] MEDS: AMIODARONE HCL 360 MG in IV 1 EA IV SCH (18:50)
[2025-03-27] MEDS ORDERED: MIDAZOLAM INJ 2 MG/2 ML VIAL IV PRN (18:50)
[2025-03-28] VITALS (50 sets, daily range): BP systolic 101–168; BP diastolic 52–79; TEMP 97.1–98.4; O2SAT 94–99
[2025-03-28] MEDS: AMIODARONE HCL 360 MG in IV 1 EA IV SCH (01:00)
[2025-03-28 04:03] LABS: BASO # 0.0 10^3/uL (0.0-0.2); BASO % 0.1 % (0.0-1.0); EOS # 0.0 10^3/uL (0.0-0.5); EOS % 0.0 % (0.0-3.0); LYMPH # 0.4 10^3/uL (1.5-5.0); LYMPH % 1.9 % (24.0-44.0); MONO # 1.0 10^3/uL (0.0-0.8); MONO % 5.3 % (2.0-8.0); NEUTROPHILS # 17.4 10^3/uL (1.5-8.5); NEUTROPHILS % 92.3 % (36.0-66.0); PLATELET COUNT, AUTOMATED 145 10^3/uL (150-450)
[2025-03-28 04:56] LABS: ALT/SGPT 44.0 U/L (7.0-40); AST/SGOT 83.0 U/L (<34); CALCIUM LEVEL 7.6 MG/DL (8.3-10.6); CARBON DIOXIDE LEVEL 25.0 MMOL/L (20-31); CHLORIDE LEVEL 92.0 MMOL/L (98-107); CREATININE FOR GFR 5.96 MG/DL (0.70-1.30); GLOMERULAR FILTRATION RATE 9.1 (>42); POTASSIUM SERUM 5.6 MMOL/L (3.5-5.1); SODIUM LEVEL 128.0 MMOL/L (136-145)
[2025-03-28] MEDS: DEXTROSE 50% 50 ML SYRINGE IV STA (05:25)
[2025-03-28] MEDS: HumuLIN R (REGULAR) INSULIN (NovoLIN R) **100 U/ML** PER UNIT IV STA (05:27)
[2025-03-28] MEDS: ALBUTEROL SULFATE 2.5 MG/0.5 ML INH CONCENTRATE NEB SOLN NEB SCH (05:33)
[2025-03-28] MEDS: CALCIUM GLUCONATE 1,000 MG in DEXTROSE 5% (D5W) MINI-BAG PLU 100 ML IV ONE (05:46)
[2025-03-28] MEDS ORDERED: SCOPOLAMINE 1MG TRANSDERMAL PATCH TOP PRN (13:10)
[2025-03-28] MEDS ORDERED: ONDANSETRON 4MG/2ML VIAL IV PRN (13:10)
[2025-03-28] MEDS: MORPHINE 4 MG/ML 1 ML VIAL IV PRN (13:14)
== END 2025-03-28 13:26 | disposition expired | DRG 296 ==
LOC: M ED 09:30 → M ICU 11:16
PROVIDERS: ADMIT Internal Medicine Pulmonary Disease; ATTEND Internal Medicine Pulmonary Disease
PROC: B246ZZZ Ultrasonography of Right and Left Heart (ICD-10-PCS; principal; 2025-03-26)
PROC: 02HV33Z Insertion of Infusion Device into Superior Vena Cava, Percutaneous Approach (ICD-10-PCS; 2025-03-26)
PROC: 0BH17EZ Insertion of Endotracheal Airway into Trachea, Via Natural or Artificial Opening (ICD-10-PCS; 2025-03-26)
PROC: 5A1945Z Respiratory Ventilation, 24-96 Consecutive Hours (ICD-10-PCS; 2025-03-26)
DX: I46.9 Cardiac arrest, cause unspecified (principal); J96.21 Acute and chronic respiratory failure with hypoxia; J96.02 Acute respiratory failure with hypercapnia; J44.1 Chronic obstructive pulmonary disease with (acute) exacerbation; N17.9 Acute kidney failure, unspecified; E87.4 Mixed disorder of acid-base balance; E87.1 Hypo-osmolality and hyponatremia; Z66 Do not resuscitate; J45.909 Unspecified asthma, uncomplicated; R91.8 Other nonspecific abnormal finding of lung field; I27.81 Cor pulmonale (chronic); I12.9 Hypertensive chronic kidney disease with stage 1 through stage 4 chronic kidney disease, or unspecified chronic kidney disease; E78.5 Hyperlipidemia, unspecified; K22.711 Barrett's esophagus with high grade dysplasia; G47.33 Obstructive sleep apnea (adult) (pediatric); I73.9 Peripheral vascular disease, unspecified; F17.210 Nicotine dependence, cigarettes, uncomplicated; R57.0 Cardiogenic shock; E87.6 Hypokalemia; E83.51 Hypocalcemia; E87.70 Fluid overload, unspecified; D69.6 Thrombocytopenia, unspecified; I27.20 Pulmonary hypertension, unspecified; D53.9 Nutritional anemia, unspecified; N18.9 Chronic kidney disease, unspecified; Z99.81 Dependence on supplemental oxygen; Z95.828 Presence of other vascular implants and grafts; Z98.41 Cataract extraction status, right eye; Z98.42 Cataract extraction status, left eye; Z68.38 Body mass index [BMI] 38.0-38.9, adult; Z79.82 Long term (current) use of aspirin; Z79.52 Long term (current) use of systemic steroids; Z79.899 Other long term (current) drug therapy; Z91.013 Allergy to seafood; Z91.018 Allergy to other foods